=== PATIENT | female | born 1960 | race Caucasian/White ===

== ENCOUNTER 2023-07-02 13:37 | Inpatient (IN) | payer BC, MEDICAID ==
[~2023-07-02] VITALS: Ht 172.7 cm; Wt 55.0 kg
[2023-07-02 13:37] VITALS: BP_SYST 136; PULSE 78; RESP 15; TEMP 98.7; O2SAT 100
[2023-07-02] MEDS ORDERED: NACL 0.9% 1,000 ML IV ONE ×2 (14:00→18:00)
[2023-07-02] MEDS ORDERED: cefTRIAXone 1 GM IVPB PREMIX 50 ML IV ONE (14:00)
[2023-07-02] MEDS ORDERED: PROPOFOL DRIP 100 ML IV ONE ×2 (14:15→16:15)
[2023-07-02 14:32] LABS: ABG O2 SAT% ESTIMATE 99.9 % (94.0-100.0); BLOOD GAS BASE EXCESS -0.7 mmol/L (-3.0-3.0); BLOOD GAS HCO3 23.5 mmol/L (21.0-27.0); BLOOD GAS PCO2 37.5 mmHg (35.0-45.0); BLOOD GAS PH 7.415 (7.350-7.450); BLOOD GAS PO2 551.5 mmHg (75.0-100.0)
[2023-07-02 14:33] LABS: BASOPHILS # (AUTO) 0.1 K/uL (0.0-0.2); BASOPHILS % (AUTO) 0.5 % (0.0-2.0); EOSINOPHILS # (AUTO) 0.3 K/uL (0.0-0.4); EOSINOPHILS % (AUTO) 2.5 % (0.0-4.0); HEMATOCRIT 29.1 % (36-48); HEMOGLOBIN 9.3 g/dL (12.0-16.0); LYMPHOCYTES # (AUTO) 2.2 K/uL (1.0-5.5); LYMPHOCYTES % (AUTO) 21.4 % (20.5-51.5); MEAN CORPUSCULAR HEMOGLOBIN 28 pg (27-31); MEAN CORPUSCULAR HGB CONC 32 % (32-36); MEAN CORPUSCULAR VOLUME 88 fL (79.0-98.0); MONOCYTES # (AUTO) 0.5 K/uL (0.0-1.0); MONOCYTES % (AUTO) 5.1 % (1.7-9.3); NEUTROPHILS # (AUTO) 7.3 K/uL (1.8-7.7); NEUTROPHILS % (AUTO) 70.5 % (40.0-70.0); PLATELET COUNT (AUTO) 213 K/uL (130-430); RED CELL DISTRIBUTION WIDTH 16.3 % (9.0-15.0); WHITE BLOOD COUNT (AUTO) 10.3 K/uL (4.8-10.8)
[2023-07-02 14:35] LABS: ALLEN'S TEST POSITIVE (P)
[2023-07-02 14:46] LABS: ALANINE AMINOTRANSFERASE 11 U/L (12-78); ALBUMIN 1.7 g/dL (3.4-4.8); ANION GAP 13 (5-15); ASPARTATE AMINOTRANSFERASE 36 U/L (10-37); CARBON DIOXIDE 25 mmol/L (23-29); CREATININE 1.29 mg/dL (0.55-1.30); GFR AFRICAN AMERICAN 54 mL/min (>90); GLUCOSE 205 mg/dL (74-106); POTASSIUM 3.2 mmol/L (3.5-5.1); SALICYLATE 1 mg/dL (3-30); TOTAL BILIRUBIN 0.1 mg/dL (0.0-1.0); TOTAL PROTEIN, SERUM 6.6 g/dL (6.4-8.3); UREA NITROGEN, BLOOD 28 mg/dL (8-21)
[2023-07-02 14:47] LABS: ACETAMINOPHEN < 1 ug/mL (1-30); GFR NON AFRICAN-AMERICAN 45 mL/min (>90)
[2023-07-02 14:48] LABS: CHLORIDE 122 mmol/L (98-107); SODIUM SERUM 160 mmol/L (136-145)
[2023-07-02 15:03] LABS: CLARITY/URINE CLOUDY (CLEAR); COLOR,URINE YELLOW (YELLOW)
[2023-07-02 15:04] LABS: BILIRUBIN,URINE NEGATIVE (NEGATIVE); BLOOD, URINE 1+ (NEGATIVE); GLUCOSE,URINE NEGATIVE (NEGATIVE); KETONES,URINE NEGATIVE (NEGATIVE); LEUKOCYTE ESTERASE ,URINE 3+ (NEGATIVE); NITRITE, URINE NEGATIVE (NEGATIVE); PROTEIN URINE 3+ (NEGATIVE); UROBILINOGEN,URINE 0.2 (0.2-1.0)
[2023-07-02 15:05] LABS: BACTERIA,URINE MODERATE /HPF (None Seen); MUCUS,URINE None Seen /LPF (None Seen); RBC,URINE 0-3 /HPF (0-3); WBC,URINE >100 /HPF (0-3); YEAST,URINE Many /HPF (None Seen)
[2023-07-02 15:14] LABS: BARBITURATE, URINE POSITIVE (NEG <=200); BENZODIAZEPINE, URINE NEGATIVE (NEG <=150); CANNABINOID, URINE NEGATIVE (NEG <=50); COCAINE, URINE NEGATIVE (NEG <=150); METHAMPHETAMINES SCREEN,URINE NEGATIVE (NEG <=500); OPIATE, URINE NEGATIVE (NEG <=100); PHENCYCLIDINE SCREEN,URINE NEGATIVE (NEG <=25); URINE AMPHETAMINE NEGATIVE (NEG <=500); URINE METHADONE NEGATIVE (NEG <=200); URINE OXYCODONE SCREEN NEGATIVE (NEG <=100); URINE PROPOXYPHENE SCREEN NEGATIVE (NEG <=300)
[2023-07-02 15:15] LABS: UR TRICYCLIC ANTIDEPRESSANTS NEGATIVE (NEG <=300)
[2023-07-02 16:36] LABS: COVID19 ANTIGEN SOFIA FIA NEGATIVE (NEGATIVE)
[2023-07-02 16:38] LABS: INFLUENZA TYPE A negative (NEGATIVE); INFLUENZA TYPE B NEGATIVE (NEGATIVE)
[2023-07-02 17:41] LABS: CALCIUM 7.6 mg/dL (8.4-11.0); CREATININE 1.21 mg/dL (0.55-1.30); POTASSIUM 3.4 mmol/L (3.5-5.1)
[2023-07-02] MEDS ORDERED: ASA81 PO (19:17)
[2023-07-02] MEDS ORDERED: LEVE1000 PO (19:17)
[2023-07-02] MEDS ORDERED: MODA200T48 PO (19:17)
[2023-07-02] MEDS ORDERED: CLOP75TA32 PO (19:17)
[2023-07-02] MEDS ORDERED: HYDR-4037 PO (19:17)
[2023-07-02] MEDS ORDERED: LACO200T2 GT (19:17)
[2023-07-02] MEDS ORDERED: VALP500S4 PO (19:17)
[2023-07-02] MEDS ORDERED: LIP40 PO (19:17)
[2023-07-02] MEDS ORDERED: INSU200I SQ (19:17)
[2023-07-02] MEDS ORDERED: INSU100V53 SQ (19:17)
[2023-07-02] MEDS ORDERED: METO-442 PO (19:17)
[2023-07-02] MEDS ORDERED: PHEN100O4 PO (19:17)
[2023-07-02] MEDS ORDERED: NOR10 PO (19:17)
[2023-07-03] VITALS (15 sets, daily range): BP systolic 115–168; PULSE 81–101; RESP 16–25; TEMP 98.1–99.3; O2SAT 97–100
[2023-07-03] MEDS ORDERED: NACL 0.9% 1,000 ML IV ONE (07:30)
[2023-07-03] MEDS ORDERED: cefTRIAXone 1 GM IVPB PREMIX 50 ML IV ONE (07:30)
[2023-07-03 08:01] LABS: CALCIUM 7.6 mg/dL (8.4-11.0); CREATININE 1.27 mg/dL (0.55-1.30)
[2023-07-03 08:03] LABS: BASOPHILS # (AUTO) 0.1 K/uL (0.0-0.2); BASOPHILS % (AUTO) 0.4 % (0.0-2.0); EOSINOPHILS # (AUTO) 0.1 K/uL (0.0-0.4); EOSINOPHILS % (AUTO) 0.8 % (0.0-4.0); HEMATOCRIT 26.6 % (36-48); HEMOGLOBIN 8.4 g/dL (12.0-16.0); LYMPHOCYTES # (AUTO) 1.6 K/uL (1.0-5.5); LYMPHOCYTES % (AUTO) 8.2 % (20.5-51.5); MEAN CORPUSCULAR HEMOGLOBIN 28 pg (27-31); MEAN CORPUSCULAR HGB CONC 32 % (32-36); MEAN CORPUSCULAR VOLUME 89 fL (79.0-98.0); MONOCYTES # (AUTO) 1.2 K/uL (0.0-1.0); MONOCYTES % (AUTO) 6.4 % (1.7-9.3); NEUTROPHILS # (AUTO) 16.1 K/uL (1.8-7.7); NEUTROPHILS % (AUTO) 84.2 % (40.0-70.0); PLATELET COUNT (AUTO) 188 K/uL (130-430); RED BLOOD CELL COUNT(AUTO) 2.98 MIL/uL (4.2-6.2); RED CELL DISTRIBUTION WIDTH 15.9 % (9.0-15.0); WHITE BLOOD COUNT (AUTO) 19.1 K/uL (4.8-10.8)
[2023-07-03 08:06] LABS: ALBUMIN 1.5 g/dL (3.4-4.8); TOTAL BILIRUBIN 0.3 mg/dL (0.0-1.0); TOTAL PROTEIN, SERUM 6.4 g/dL (6.4-8.3)
[2023-07-03] MEDS ORDERED: KCL 40 mEq in 100 mL (PREMIX) 100 ML IV ONE (09:00)
[2023-07-03] MEDS ORDERED: PROPOFOL DRIP 100 ML IV ONE ×2 (10:30→15:00)
[2023-07-03] MEDS ORDERED: PANTOPRAZOLE SODIUM 40 MG/VIAL (PROTONIX) IVP ONE (10:30)
[2023-07-03] MEDS ORDERED: ACETAMINOPHEN 325 MG SUPP.RECT RC ONE (11:15)
[2023-07-03] MEDS ORDERED: D5NS 500 ML IV SCH (15:00)
[2023-07-03] MEDS ORDERED: ACETAMINOPHEN 650 MG SUPP.RECT RC PRN ×2 (15:00→15:15)
[2023-07-03] MEDS ORDERED: PROPOFOL DRIP 100 ML IV PRN ×2 (15:05→22:45)
[2023-07-03] MEDS ORDERED: D5NS 1,000 ML IV SCH (15:15)
[2023-07-03] MEDS ORDERED: DEXTROSE 50% JECT 50 ML DISP.SYRIN IVP PRN (22:45)
[2023-07-03] MEDS ORDERED: D5W 1,000 ML IV PRN (22:45)
[2023-07-03] MEDS ORDERED: GLUCOSE (DEXTROSE) ORAL GEL -Adults PO PRN (22:45)
[2023-07-03] MEDS: INSULIN LISPRO SLIDING SCALE 100 UNITS/ML, 3 ML VIAL (humaLOG) SUBCUT PRN (23:50)
[2023-07-04] VITALS (37 sets, daily range): BP systolic 119–193; PULSE 71–98; RESP 14–29; TEMP 98.4–99.6; O2SAT 97–100
[2023-07-04] MEDS: D5/0.45 NS 1,000 ML IV SCH ×3 (01:49→22:46)
[2023-07-04 04:10] LABS: BASOPHILS % (AUTO) 0.3 % (0.0-2.0); EOSINOPHILS # (AUTO) 0.1 K/uL (0.0-0.4); EOSINOPHILS % (AUTO) 0.6 % (0.0-4.0); LYMPHOCYTES # (AUTO) 1.2 K/uL (1.0-5.5); LYMPHOCYTES % (AUTO) 8.9 % (20.5-51.5); MEAN CORPUSCULAR HEMOGLOBIN 28 pg (27-31); MEAN CORPUSCULAR HGB CONC 31 % (32-36); MEAN CORPUSCULAR VOLUME 89 fL (79.0-98.0); MONOCYTES # (AUTO) 0.9 K/uL (0.0-1.0); MONOCYTES % (AUTO) 6.6 % (1.7-9.3); NEUTROPHILS # (AUTO) 11.7 K/uL (1.8-7.7); NEUTROPHILS % (AUTO) 83.6 % (40.0-70.0); PLATELET COUNT (AUTO) 175 K/uL (130-430); RED BLOOD CELL COUNT(AUTO) 2.43 MIL/uL (4.2-6.2); RED CELL DISTRIBUTION WIDTH 16.2 % (9.0-15.0); WHITE BLOOD COUNT (AUTO) 13.9 K/uL (4.8-10.8)
[2023-07-04 04:39] LABS: CALCIUM 7.9 mg/dL (8.4-11.0); CREATININE 1.3 mg/dL (0.55-1.30)
[2023-07-04 05:25] LABS: HEMATOCRIT 21.7 % (36-48); HEMOGLOBIN 6.8 g/dL (12.0-16.0)
[2023-07-04] MEDS: INSULIN LISPRO SLIDING SCALE 100 UNITS/ML, 3 ML VIAL (humaLOG) SUBCUT PRN ×3 (06:07→17:47)
[2023-07-04] MEDS ORDERED: hydrALAZINE HCL 10 MG TABLET ONE (06:18)
[2023-07-04] MEDS: hydrALAZINE HCL 10 MG TABLET PO SCH ×3 (06:20→22:00)
[2023-07-04] MEDS ORDERED: METOPROLOL TARTRATE 50 MG TABLET PO SCH (09:00)
[2023-07-04] MEDS ORDERED: INSULIN GLARGINE 100 UNITS/ML, 10 ML VIAL SUBCUT SCH (09:00)
[2023-07-04 10:07] LABS: ABG O2 SAT% ESTIMATE 97.5 % (94.0-100.0); BLOOD GAS BASE EXCESS -4.2 mmol/L (-3.0-3.0); BLOOD GAS HCO3 19.3 mmol/L (21.0-27.0); BLOOD GAS PCO2 31.3 mmHg (35.0-45.0); BLOOD GAS PH 7.407 (7.350-7.450); BLOOD GAS PO2 97.6 mmHg (75.0-100.0)
[2023-07-04 10:13] LABS: ALLEN'S TEST POSITIVE (P)
[2023-07-04] MEDS ORDERED: COMMUNICATION ORDER XX ONE (10:30)
[2023-07-04] MEDS ORDERED: amLODIPine BESYLATE 10 MG TABLET NG ONE (11:00)
[2023-07-04] MEDS ORDERED: ASPIRIN 81 MG TAB.CHEW NG ONE (11:15)
[2023-07-04] MEDS ORDERED: INSULIN GLARGINE 100 UNITS/ML, 10 ML VIAL SQ ONE (11:30)
[2023-07-04] MEDS ORDERED: CLOPIDOGREL BISULFATE 75 MG TABLET NG ONE (11:30)
[2023-07-04] MEDS: POTASSIUM CHLORIDE 20 mEq in 100 mL (PREMIX) 100 ML x 2 doses IV SCH ×3 (12:03→14:18)
[2023-07-04] MEDS: VALPROIC ACID ORAL SYRUP 250 MG/5 ML UDC NG SCH ×2 (14:20→20:08)
[2023-07-04] MEDS ORDERED: hydrALAZINE HCL 10 MG TABLET NG SCH (15:00)
[2023-07-04] MEDS: FLUCONAZOLE 200 mg/ NS 100 ML IV SCH (15:52)
[2023-07-04] MEDS: PIPERACILLIN/TAZO 3.375/DEX-IS 50 ML IV SCH (17:36)
[2023-07-04] MEDS: LevETIRAcetam 500 MG/5 ML UDC ORAL LIQUID NG SCH (20:08)
[2023-07-04] MEDS: ATORVASTATIN 20 MG TABLET NG SCH (20:08)
[2023-07-04] MEDS: PHENYTOIN 100 MG/4 ML UDC (DILANTIN) NG SCH (20:08)
[2023-07-04] MEDS: METOPROLOL TARTRATE 50 MG TABLET NG SCH (20:09)
[2023-07-04] MEDS: LACOSAMIDE 100 MG TABLET NG SCH (21:00)
[2023-07-05] VITALS (34 sets, daily range): BP systolic 114–179; PULSE 63–80; RESP 12–26; TEMP 98.3–99; O2SAT 95–100
[2023-07-05] MEDS: PIPERACILLIN/TAZO 3.375/DEX-IS 50 ML IV SCH ×4 (00:42→18:24)
[2023-07-05 04:56] LABS: ERYTHROCYTE SEDIMENTATION RATE 87 MM/HR (0-20)
[2023-07-05 05:00] LABS: BASOPHILS # (AUTO) 0.1 K/uL (0.0-0.2); BASOPHILS % (AUTO) 0.4 % (0.0-2.0); EOSINOPHILS # (AUTO) 0.3 K/uL (0.0-0.4); EOSINOPHILS % (AUTO) 2.8 % (0.0-4.0); HEMATOCRIT 27.1 % (36-48); HEMOGLOBIN 8.7 g/dL (12.0-16.0); LYMPHOCYTES # (AUTO) 1.8 K/uL (1.0-5.5); MEAN CORPUSCULAR HEMOGLOBIN 28 pg (27-31); MEAN CORPUSCULAR HGB CONC 32 % (32-36); MEAN CORPUSCULAR VOLUME 87 fL (79.0-98.0); MONOCYTES # (AUTO) 0.9 K/uL (0.0-1.0); MONOCYTES % (AUTO) 7.5 % (1.7-9.3); NEUTROPHILS # (AUTO) 9.1 K/uL (1.8-7.7); NEUTROPHILS % (AUTO) 74.3 % (40.0-70.0); PLATELET COUNT (AUTO) 195 K/uL (130-430); RED BLOOD CELL COUNT(AUTO) 3.12 MIL/uL (4.2-6.2); RED CELL DISTRIBUTION WIDTH 16.4 % (9.0-15.0); WHITE BLOOD COUNT (AUTO) 12.3 K/uL (4.8-10.8)
[2023-07-05 05:15] LABS: CALCIUM 7.5 mg/dL (8.4-11.0); CREATININE 0.95 mg/dL (0.55-1.30); PHOSPHORUS 1.9 mg/dL (2.7-4.5); POTASSIUM 3.6 mmol/L (3.5-5.1)
[2023-07-05] MEDS: INSULIN LISPRO SLIDING SCALE 100 UNITS/ML, 3 ML VIAL (humaLOG) SUBCUT PRN ×4 (06:15→18:33)
[2023-07-05] MEDS: hydrALAZINE HCL 10 MG TABLET PO SCH ×3 (06:57→21:58)
[2023-07-05] MEDS: PANTOPRAZOLE SODIUM 40 MG/VIAL (PROTONIX) IVP SCH (08:07)
[2023-07-05] MEDS: PHENYTOIN 100 MG/4 ML UDC (DILANTIN) NG SCH ×2 (08:08→21:56)
[2023-07-05] MEDS: CLOPIDOGREL BISULFATE 75 MG TABLET NG SCH (08:08)
[2023-07-05] MEDS: amLODIPine BESYLATE 10 MG TABLET NG SCH (08:08)
[2023-07-05] MEDS: ASPIRIN 81 MG TAB.CHEW NG SCH (08:09)
[2023-07-05] MEDS: METOPROLOL TARTRATE 50 MG TABLET NG SCH ×2 (08:09→21:58)
[2023-07-05] MEDS: MODAFINIL 100 MG TABLET (PROVIGIL) NG SCH (08:09)
[2023-07-05] MEDS: LACOSAMIDE 100 MG TABLET NG SCH ×2 (08:09→21:57)
[2023-07-05] MEDS: VALPROIC ACID ORAL SYRUP 250 MG/5 ML UDC NG SCH ×3 (08:12→21:55)
[2023-07-05] MEDS: LevETIRAcetam 500 MG/5 ML UDC ORAL LIQUID NG SCH ×2 (08:12→21:57)
[2023-07-05] MEDS ORDERED: INSULIN GLARGINE 100 UNITS/ML, 10 ML VIAL SQ SCH (09:00)
[2023-07-05] MEDS: D5/0.45 NS 1,000 ML IV SCH ×2 (09:36→22:12)
[2023-07-05] MEDS ORDERED: CALCIUM GLUCONATE 2 GM in NS 80 ML IV ONE (10:15)
[2023-07-05] MEDS ORDERED: K PHOS 15 MM in NS 250 ML IV ONE (10:15)
[2023-07-05] MEDS: FLUCONAZOLE 200 mg/ NS 100 ML IV SCH (14:38)
[2023-07-05] MEDS ORDERED: INSULIN NPH 100 UNITS/ML 10 ML VIAL SUBCUT ONE (15:15)
[2023-07-05] MEDS ORDERED: COMMUNICATION ORDER XX ONE (15:30)
[2023-07-05] MEDS: ATORVASTATIN 20 MG TABLET NG SCH (21:59)
[2023-07-05] MEDS: INSULIN GLARGINE 100 UNITS/ML, 10 ML VIAL SQ SCH (22:34)
[2023-07-06] VITALS (35 sets, daily range): BP systolic 126–192; PULSE 62–79; RESP 15–33; TEMP 97.7–99.6; O2SAT 97–100
[2023-07-06] MEDS: INSULIN LISPRO SLIDING SCALE 100 UNITS/ML, 3 ML VIAL (humaLOG) SUBCUT PRN ×4 (01:50→17:37)
[2023-07-06] MEDS: PIPERACILLIN/TAZO 3.375/DEX-IS 50 ML IV SCH ×2 (01:56→05:58)
[2023-07-06] MEDS: D5/0.45 NS 1,000 ML IV SCH ×2 (03:00→13:21)
[2023-07-06 05:07] LABS: BASOPHILS % (AUTO) 0.3 % (0.0-2.0); EOSINOPHILS # (AUTO) 0.4 K/uL (0.0-0.4); EOSINOPHILS % (AUTO) 5.1 % (0.0-4.0); HEMATOCRIT 24.4 % (36-48); HEMOGLOBIN 7.8 g/dL (12.0-16.0); LYMPHOCYTES # (AUTO) 1.4 K/uL (1.0-5.5); LYMPHOCYTES % (AUTO) 17.9 % (20.5-51.5); MEAN CORPUSCULAR HEMOGLOBIN 28 pg (27-31); MEAN CORPUSCULAR HGB CONC 32 % (32-36); MEAN CORPUSCULAR VOLUME 87 fL (79.0-98.0); MONOCYTES # (AUTO) 0.6 K/uL (0.0-1.0); MONOCYTES % (AUTO) 7.8 % (1.7-9.3); NEUTROPHILS # (AUTO) 5.2 K/uL (1.8-7.7); NEUTROPHILS % (AUTO) 68.9 % (40.0-70.0); PLATELET COUNT (AUTO) 224 K/uL (130-430); RED BLOOD CELL COUNT(AUTO) 2.79 MIL/uL (4.2-6.2); RED CELL DISTRIBUTION WIDTH 15.9 % (9.0-15.0); WHITE BLOOD COUNT (AUTO) 7.6 K/uL (4.8-10.8)
[2023-07-06 05:26] LABS: TOTAL IRON BIND. CAPACITY 132 ug/dL (250-450)
[2023-07-06 05:30] LABS: CALCIUM 7.5 mg/dL (8.4-11.0); CREATININE 1.02 mg/dL (0.55-1.30); PHOSPHORUS 2.4 mg/dL (2.7-4.5); POTASSIUM 3.6 mmol/L (3.5-5.1); THYROID STIMULATING HORMONE 2.59 uIu/mL (0.34-4.82); TOTAL BILIRUBIN 0.1 mg/dL (0.0-1.0); TOTAL PROTEIN, SERUM 5.2 g/dL (6.4-8.3)
[2023-07-06] MEDS: hydrALAZINE HCL 10 MG TABLET PO SCH ×3 (05:58→23:15)
[2023-07-06 06:22] LABS: ERYTHROCYTE SEDIMENTATION RATE 71 MM/HR (0-20)
[2023-07-06] MEDS: PANTOPRAZOLE SODIUM 40 MG/VIAL (PROTONIX) IVP SCH (09:53)
[2023-07-06] MEDS: VALPROIC ACID ORAL SYRUP 250 MG/5 ML UDC NG SCH ×3 (09:53→23:16)
[2023-07-06] MEDS: ASPIRIN 81 MG TAB.CHEW NG SCH (09:53)
[2023-07-06] MEDS: PHENYTOIN 100 MG/4 ML UDC (DILANTIN) NG SCH ×2 (09:54→23:16)
[2023-07-06] MEDS: LevETIRAcetam 500 MG/5 ML UDC ORAL LIQUID NG SCH ×2 (09:54→23:16)
[2023-07-06] MEDS: METOPROLOL TARTRATE 50 MG TABLET NG SCH ×2 (09:55→23:15)
[2023-07-06] MEDS: MODAFINIL 100 MG TABLET (PROVIGIL) NG SCH (09:56)
[2023-07-06] MEDS: LACOSAMIDE 100 MG TABLET NG SCH ×2 (09:56→23:13)
[2023-07-06] MEDS: CLOPIDOGREL BISULFATE 75 MG TABLET NG SCH (09:56)
[2023-07-06] MEDS: amLODIPine BESYLATE 10 MG TABLET NG SCH (09:56)
[2023-07-06] MEDS: INSULIN GLARGINE 100 UNITS/ML, 10 ML VIAL SQ SCH ×2 (09:59→23:43)
[2023-07-06 10:39] LABS: ABG O2 SAT% ESTIMATE 97.5 % (94.0-100.0); BLOOD GAS PH 7.474 (7.350-7.450); BLOOD GAS PO2 89.7 mmHg (75.0-100.0)
[2023-07-06 10:45] LABS: BLOOD GAS BASE EXCESS -3.9 mmol/L (-3.0-3.0); BLOOD GAS HCO3 17.7 mmol/L (21.0-27.0); BLOOD GAS PCO2 24.6 mmHg (35.0-45.0)
[2023-07-06] MEDS ORDERED: CALCIUM GLUCONATE 2 GM in NS 100 ML IV ONE (11:00)
[2023-07-06] MEDS ORDERED: K PHOS 30 MM in NS 250 ML IV ONE (12:00)
[2023-07-06] MEDS ORDERED: VANCOMYCIN HCL 1,000 MG in NS 250 ML IV SCH (12:00)
[2023-07-06] MEDS: FLUCONAZOLE 200 mg/ NS 100 ML IV SCH (15:28)
[2023-07-06] MEDS: CEFEPIME 2 GM in D5W 100 ML IV SCH (23:13)
[2023-07-06] MEDS: ATORVASTATIN 20 MG TABLET NG SCH (23:13)
[2023-07-07] VITALS (38 sets, daily range): BP systolic 82–192; PULSE 60–183; RESP 14–36; TEMP 97.5–98; O2SAT 95–100
[2023-07-07] MEDS: INSULIN LISPRO SLIDING SCALE 100 UNITS/ML, 3 ML VIAL (humaLOG) SUBCUT PRN ×3 (00:11→12:36)
[2023-07-07] MEDS: D5/0.45 NS 1,000 ML IV SCH ×2 (01:10→08:47)
[2023-07-07 05:09] LABS: BASOPHILS % (AUTO) 0.6 % (0.0-2.0); EOSINOPHILS # (AUTO) 0.3 K/uL (0.0-0.4); EOSINOPHILS % (AUTO) 3.9 % (0.0-4.0); HEMATOCRIT 25.9 % (36-48); HEMOGLOBIN 8.6 g/dL (12.0-16.0); LYMPHOCYTES # (AUTO) 1.2 K/uL (1.0-5.5); LYMPHOCYTES % (AUTO) 16.3 % (20.5-51.5); MEAN CORPUSCULAR HEMOGLOBIN 28 pg (27-31); MEAN CORPUSCULAR HGB CONC 33 % (32-36); MEAN CORPUSCULAR VOLUME 86 fL (79.0-98.0); MONOCYTES # (AUTO) 0.7 K/uL (0.0-1.0); MONOCYTES % (AUTO) 9.5 % (1.7-9.3); NEUTROPHILS # (AUTO) 5.3 K/uL (1.8-7.7); NEUTROPHILS % (AUTO) 69.7 % (40.0-70.0); PLATELET COUNT (AUTO) 305 K/uL (130-430); RED BLOOD CELL COUNT(AUTO) 3.03 MIL/uL (4.2-6.2); RED CELL DISTRIBUTION WIDTH 15.7 % (9.0-15.0); WHITE BLOOD COUNT (AUTO) 7.7 K/uL (4.8-10.8)
[2023-07-07 05:37] LABS: ERYTHROCYTE SEDIMENTATION RATE 90 MM/HR (0-20)
[2023-07-07 05:39] LABS: CALCIUM 7.6 mg/dL (8.4-11.0); CREATININE 0.96 mg/dL (0.55-1.30); PHOSPHORUS 3.4 mg/dL (2.7-4.5); POTASSIUM 3.4 mmol/L (3.5-5.1)
[2023-07-07] MEDS: hydrALAZINE HCL 10 MG TABLET PO SCH ×3 (06:18→22:28)
[2023-07-07 08:06] LABS: FOLATE (FOLIC ACID) 3.6 ng/mL (>3.0)
[2023-07-07] MEDS: PANTOPRAZOLE SODIUM 40 MG/VIAL (PROTONIX) IVP SCH (08:47)
[2023-07-07] MEDS: CEFEPIME 2 GM in D5W 100 ML IV SCH ×2 (08:50→20:29)
[2023-07-07] MEDS: ASPIRIN 81 MG TAB.CHEW NG SCH (08:51)
[2023-07-07] MEDS: amLODIPine BESYLATE 10 MG TABLET NG SCH (08:52)
[2023-07-07] MEDS: PHENYTOIN 100 MG/4 ML UDC (DILANTIN) NG SCH ×2 (08:52→20:24)
[2023-07-07] MEDS: CLOPIDOGREL BISULFATE 75 MG TABLET NG SCH (08:52)
[2023-07-07] MEDS: LACOSAMIDE 100 MG TABLET NG SCH ×2 (08:53→20:27)
[2023-07-07] MEDS: METOPROLOL TARTRATE 50 MG TABLET NG SCH ×2 (08:53→20:28)
[2023-07-07] MEDS: VALPROIC ACID ORAL SYRUP 250 MG/5 ML UDC NG SCH ×3 (08:54→20:25)
[2023-07-07] MEDS: MODAFINIL 100 MG TABLET (PROVIGIL) NG SCH (08:54)
[2023-07-07] MEDS: LevETIRAcetam 500 MG/5 ML UDC ORAL LIQUID NG SCH ×2 (08:56→20:26)
[2023-07-07] MEDS: INSULIN GLARGINE 100 UNITS/ML, 10 ML VIAL SQ SCH (08:58)
[2023-07-07] MEDS ORDERED: KCL 40 mEq in 100 mL (PREMIX) 100 ML IV ONE (09:00)
[2023-07-07] MEDS ORDERED: POTASSIUM CHLORIDE 20 MEQ/PKT PACKET GT ONE (10:15)
[2023-07-07] MEDS ORDERED: CALCIUM GLUCONATE 2 GM in NS 100 ML IV ONE (11:00)
[2023-07-07] MEDS: FLUCONAZOLE 200 mg/ NS 100 ML IV SCH (15:52)
[2023-07-07] MEDS ORDERED: GOLYTELY / COLYTE SOLUTION 4 LITERS PO ONE (18:00)
[2023-07-07] MEDS: ATORVASTATIN 20 MG TABLET NG SCH (20:26)
[2023-07-07] MEDS: LINEZOLID 300 ML IV SCH (22:27)
[2023-07-08] VITALS (38 sets, daily range): BP systolic 13–186; PULSE 55–100; RESP 17–31; TEMP 97.9–98.9; O2SAT 96–100
[2023-07-08] MEDS: hydrALAZINE HCL 10 MG TABLET PO SCH ×3 (05:36→21:59)
[2023-07-08 05:44] LABS: BASOPHILS % (AUTO) 0.5 % (0.0-2.0); EOSINOPHILS # (AUTO) 0.3 K/uL (0.0-0.4); EOSINOPHILS % (AUTO) 3.9 % (0.0-4.0); HEMATOCRIT 27.4 % (36-48); LYMPHOCYTES # (AUTO) 1.6 K/uL (1.0-5.5); LYMPHOCYTES % (AUTO) 21.9 % (20.5-51.5); MEAN CORPUSCULAR HEMOGLOBIN 28 pg (27-31); MEAN CORPUSCULAR HGB CONC 33 % (32-36); MEAN CORPUSCULAR VOLUME 86 fL (79.0-98.0); MONOCYTES # (AUTO) 0.7 K/uL (0.0-1.0); NEUTROPHILS # (AUTO) 4.7 K/uL (1.8-7.7); NEUTROPHILS % (AUTO) 64.7 % (40.0-70.0); PLATELET COUNT (AUTO) 330 K/uL (130-430); RED BLOOD CELL COUNT(AUTO) 3.18 MIL/uL (4.2-6.2); WHITE BLOOD COUNT (AUTO) 7.3 K/uL (4.8-10.8)
[2023-07-08 06:04] LABS: ALBUMIN 1.2 g/dL (3.4-4.8); CALCIUM 7.9 mg/dL (8.4-11.0); CREATININE 0.93 mg/dL (0.55-1.30); TOTAL BILIRUBIN 0.2 mg/dL (0.0-1.0); TOTAL PROTEIN, SERUM 5.1 g/dL (6.4-8.3)
[2023-07-08 06:30] LABS: ERYTHROCYTE SEDIMENTATION RATE 97 MM/HR (0-20)
[2023-07-08] MEDS ORDERED: MEPERIDINE 100 MG INJ. 100 MG/ML VIAL ONE (08:12)
[2023-07-08] MEDS ORDERED: MIDAZOLAM HCL 5 MG/5 ML VIAL ONE (08:12)
[2023-07-08 08:35] LABS: ABG O2 SAT% ESTIMATE 98.5 % (94.0-100.0); BLOOD GAS BASE EXCESS -0.6 mmol/L (-3.0-3.0); BLOOD GAS HCO3 21.4 mmol/L (21.0-27.0); BLOOD GAS PCO2 28.5 mmHg (35.0-45.0); BLOOD GAS PH 7.493 (7.350-7.450); BLOOD GAS PO2 112.7 mmHg (75.0-100.0)
[2023-07-08 08:50] LABS: ALLEN'S TEST POSITIVE (P)
[2023-07-08] MEDS: CEFEPIME 2 GM in D5W 100 ML IV SCH ×2 (09:38→20:07)
[2023-07-08] MEDS: MODAFINIL 100 MG TABLET (PROVIGIL) NG SCH (09:39)
[2023-07-08] MEDS: PANTOPRAZOLE SODIUM 40 MG/VIAL (PROTONIX) IVP SCH (09:39)
[2023-07-08] MEDS: LINEZOLID 300 ML IV SCH ×2 (09:39→21:23)
[2023-07-08] MEDS: ASPIRIN 81 MG TAB.CHEW NG SCH (09:40)
[2023-07-08] MEDS: METOPROLOL TARTRATE 50 MG TABLET NG SCH ×2 (09:40→21:22)
[2023-07-08] MEDS: LACOSAMIDE 100 MG TABLET NG SCH ×2 (09:40→21:21)
[2023-07-08] MEDS: CLOPIDOGREL BISULFATE 75 MG TABLET NG SCH (09:40)
[2023-07-08] MEDS: amLODIPine BESYLATE 10 MG TABLET NG SCH (09:41)
[2023-07-08] MEDS: LevETIRAcetam 500 MG/5 ML UDC ORAL LIQUID NG SCH ×2 (09:41→21:20)
[2023-07-08] MEDS: PHENYTOIN 100 MG/4 ML UDC (DILANTIN) NG SCH ×2 (09:41→21:21)
[2023-07-08] MEDS: VALPROIC ACID ORAL SYRUP 250 MG/5 ML UDC NG SCH ×3 (09:42→21:20)
[2023-07-08] MEDS ORDERED: ALBUMIN HUMAN 25% 100 ML IV ONE (12:15)
[2023-07-08] MEDS: INSULIN LISPRO SLIDING SCALE 100 UNITS/ML, 3 ML VIAL (humaLOG) SUBCUT PRN (12:43)
[2023-07-08] MEDS: FLUCONAZOLE 200 mg/ NS 100 ML IV SCH (14:52)
[2023-07-08] MEDS ORDERED: CHOLECALCIFEROL (VITAMIN D3) 5,000 UNIT TABLET PO SCH (15:45)
[2023-07-08] MEDS ORDERED: CHOLECALCIFEROL (VITAMIN D3) 5,000 UNIT TABLET NG ONE (16:00)
[2023-07-08] MEDS: ATORVASTATIN 20 MG TABLET NG SCH (21:21)
[2023-07-08] MEDS: INSULIN GLARGINE 100 UNITS/ML, 10 ML VIAL SUBCUT SCH (21:57)
[2023-07-09] VITALS (34 sets, daily range): BP systolic 119–184; PULSE 58–98; RESP 14–28; TEMP 97–98.3; O2SAT 94–100
[2023-07-09 05:09] LABS: BASOPHILS % (AUTO) 0.6 % (0.0-2.0); EOSINOPHILS # (AUTO) 0.3 K/uL (0.0-0.4); EOSINOPHILS % (AUTO) 3.7 % (0.0-4.0); HEMATOCRIT 26.3 % (36-48); HEMOGLOBIN 8.8 g/dL (12.0-16.0); LYMPHOCYTES # (AUTO) 1.2 K/uL (1.0-5.5); LYMPHOCYTES % (AUTO) 15.3 % (20.5-51.5); MEAN CORPUSCULAR HEMOGLOBIN 29 pg (27-31); MEAN CORPUSCULAR HGB CONC 34 % (32-36); MEAN CORPUSCULAR VOLUME 86 fL (79.0-98.0); MONOCYTES # (AUTO) 0.8 K/uL (0.0-1.0); MONOCYTES % (AUTO) 10.8 % (1.7-9.3); NEUTROPHILS # (AUTO) 5.5 K/uL (1.8-7.7); NEUTROPHILS % (AUTO) 69.6 % (40.0-70.0); PLATELET COUNT (AUTO) 351 K/uL (130-430); RED BLOOD CELL COUNT(AUTO) 3.06 MIL/uL (4.2-6.2); RED CELL DISTRIBUTION WIDTH 15.2 % (9.0-15.0); WHITE BLOOD COUNT (AUTO) 7.8 K/uL (4.8-10.8)
[2023-07-09 05:16] LABS: ERYTHROCYTE SEDIMENTATION RATE 85 MM/HR (0-20)
[2023-07-09 05:23] LABS: CALCIUM 8.1 mg/dL (8.4-11.0); CREATININE 0.95 mg/dL (0.55-1.30); POTASSIUM 3.2 mmol/L (3.5-5.1)
[2023-07-09] MEDS: hydrALAZINE HCL 10 MG TABLET PO SCH ×3 (05:54→21:50)
[2023-07-09] MEDS: INSULIN LISPRO SLIDING SCALE 100 UNITS/ML, 3 ML VIAL (humaLOG) SUBCUT PRN ×3 (05:56→18:50)
[2023-07-09] MEDS: LINEZOLID 300 ML IV SCH ×2 (08:47→21:31)
[2023-07-09] MEDS: PANTOPRAZOLE SODIUM 40 MG/VIAL (PROTONIX) IVP SCH (08:48)
[2023-07-09] MEDS: CEFEPIME 2 GM in D5W 100 ML IV SCH ×2 (08:48→21:30)
[2023-07-09] MEDS: ASPIRIN 81 MG TAB.CHEW NG SCH (08:49)
[2023-07-09] MEDS: PHENYTOIN 100 MG/4 ML UDC (DILANTIN) NG SCH ×2 (08:49→21:29)
[2023-07-09] MEDS: METOPROLOL TARTRATE 50 MG TABLET NG SCH ×2 (08:50→21:34)
[2023-07-09] MEDS: amLODIPine BESYLATE 10 MG TABLET NG SCH (08:51)
[2023-07-09] MEDS: CLOPIDOGREL BISULFATE 75 MG TABLET NG SCH (08:51)
[2023-07-09] MEDS: MODAFINIL 100 MG TABLET (PROVIGIL) NG SCH (08:51)
[2023-07-09] MEDS: LACOSAMIDE 100 MG TABLET NG SCH ×2 (08:53→21:35)
[2023-07-09] MEDS: CHOLECALCIFEROL (VITAMIN D3) 5,000 UNIT TABLET NG SCH (08:54)
[2023-07-09] MEDS: INSULIN GLARGINE 100 UNITS/ML, 10 ML VIAL SUBCUT SCH (09:05)
[2023-07-09] MEDS ORDERED: POTASSIUM CHLORIDE 20 MEQ/PKT PACKET GT ONE (11:00)
[2023-07-09] MEDS: VALPROIC ACID ORAL SYRUP 250 MG/5 ML UDC NG SCH ×3 (12:19→21:32)
[2023-07-09] MEDS: LevETIRAcetam 500 MG/5 ML UDC ORAL LIQUID NG SCH ×2 (12:20→21:33)
[2023-07-09] MEDS: SCOPOLAMINE HYDROBROMIDE 1 MG PATCH .72 H (TRANSDERM-SCOP) TD SCH (14:46)
[2023-07-09] MEDS: FLUCONAZOLE 200 mg/ NS 100 ML IV SCH (14:47)
[2023-07-09] MEDS: ATORVASTATIN 20 MG TABLET NG SCH (21:36)
[2023-07-10] VITALS (36 sets, daily range): BP systolic 97–183; PULSE 58–80; RESP 15–30; TEMP 97.3–99; O2SAT 98–100
[2023-07-10] MEDS: INSULIN LISPRO SLIDING SCALE 100 UNITS/ML, 3 ML VIAL (humaLOG) SUBCUT PRN ×4 (00:21→17:29)
[2023-07-10 05:19] LABS: BASOPHILS % (AUTO) 0.4 % (0.0-2.0); EOSINOPHILS # (AUTO) 0.2 K/uL (0.0-0.4); EOSINOPHILS % (AUTO) 2.8 % (0.0-4.0); HEMATOCRIT 27.5 % (36-48); HEMOGLOBIN 9.2 g/dL (12.0-16.0); LYMPHOCYTES # (AUTO) 1.5 K/uL (1.0-5.5); LYMPHOCYTES % (AUTO) 18.9 % (20.5-51.5); MEAN CORPUSCULAR HEMOGLOBIN 29 pg (27-31); MEAN CORPUSCULAR HGB CONC 33 % (32-36); MEAN CORPUSCULAR VOLUME 86 fL (79.0-98.0); MONOCYTES % (AUTO) 12.6 % (1.7-9.3); NEUTROPHILS # (AUTO) 5.3 K/uL (1.8-7.7); NEUTROPHILS % (AUTO) 65.3 % (40.0-70.0); PLATELET COUNT (AUTO) 361 K/uL (130-430); RED BLOOD CELL COUNT(AUTO) 3.22 MIL/uL (4.2-6.2); RED CELL DISTRIBUTION WIDTH 15.1 % (9.0-15.0); WHITE BLOOD COUNT (AUTO) 8.1 K/uL (4.8-10.8)
[2023-07-10 05:22] LABS: ERYTHROCYTE SEDIMENTATION RATE 100 MM/HR (0-20)
[2023-07-10 05:28] LABS: CALCIUM 8.1 mg/dL (8.4-11.0); CREATININE 1.08 mg/dL (0.55-1.30); POTASSIUM 3.2 mmol/L (3.5-5.1)
[2023-07-10] MEDS: hydrALAZINE HCL 10 MG TABLET PO SCH ×3 (05:58→21:18)
[2023-07-10] MEDS ORDERED: POTASSIUM CHLORIDE 20 MEQ/PKT PACKET PO ONE (08:30)
[2023-07-10] MEDS: LINEZOLID 300 ML IV SCH ×2 (08:38→21:14)
[2023-07-10] MEDS: CEFEPIME 2 GM in D5W 100 ML IV SCH ×2 (08:38→21:13)
[2023-07-10] MEDS: PANTOPRAZOLE SODIUM 40 MG/VIAL (PROTONIX) IVP SCH (08:39)
[2023-07-10] MEDS: PHENYTOIN 100 MG/4 ML UDC (DILANTIN) NG SCH ×2 (08:39→21:14)
[2023-07-10] MEDS: amLODIPine BESYLATE 10 MG TABLET NG SCH (08:39)
[2023-07-10] MEDS: ASPIRIN 81 MG TAB.CHEW NG SCH (08:39)
[2023-07-10] MEDS: VALPROIC ACID ORAL SYRUP 250 MG/5 ML UDC NG SCH ×3 (08:40→21:19)
[2023-07-10] MEDS: LevETIRAcetam 500 MG/5 ML UDC ORAL LIQUID NG SCH ×2 (08:40→21:16)
[2023-07-10] MEDS: METOPROLOL TARTRATE 50 MG TABLET NG SCH ×2 (08:40→21:17)
[2023-07-10] MEDS: CLOPIDOGREL BISULFATE 75 MG TABLET NG SCH (08:41)
[2023-07-10] MEDS: CHOLECALCIFEROL (VITAMIN D3) 5,000 UNIT TABLET NG SCH (08:41)
[2023-07-10] MEDS: MODAFINIL 100 MG TABLET (PROVIGIL) NG SCH (08:41)
[2023-07-10] MEDS: LACOSAMIDE 100 MG TABLET NG SCH ×2 (08:42→21:16)
[2023-07-10] MEDS: INSULIN GLARGINE 100 UNITS/ML, 10 ML VIAL SUBCUT SCH ×2 (08:57→21:22)
[2023-07-10] MEDS: FLUCONAZOLE 200 mg/ NS 100 ML IV SCH (14:49)
[2023-07-10] MEDS: ATORVASTATIN 20 MG TABLET NG SCH (21:15)
[2023-07-11] VITALS (31 sets, daily range): BP systolic 113–180; PULSE 64–81; RESP 14–27; TEMP 97.2–99.1; O2SAT 96–100
[2023-07-11] MEDS: INSULIN LISPRO SLIDING SCALE 100 UNITS/ML, 3 ML VIAL (humaLOG) SUBCUT PRN ×4 (01:04→17:35)
[2023-07-11 05:06] LABS: ERYTHROCYTE SEDIMENTATION RATE 74 MM/HR (0-20)
[2023-07-11 05:16] LABS: BASOPHILS % (AUTO) 0.6 % (0.0-2.0); EOSINOPHILS # (AUTO) 0.2 K/uL (0.0-0.4); EOSINOPHILS % (AUTO) 2.6 % (0.0-4.0); HEMATOCRIT 24.4 % (36-48); HEMOGLOBIN 8.1 g/dL (12.0-16.0); LYMPHOCYTES # (AUTO) 1.7 K/uL (1.0-5.5); LYMPHOCYTES % (AUTO) 25.5 % (20.5-51.5); MEAN CORPUSCULAR HEMOGLOBIN 29 pg (27-31); MEAN CORPUSCULAR HGB CONC 33 % (32-36); MEAN CORPUSCULAR VOLUME 87 fL (79.0-98.0); MONOCYTES # (AUTO) 0.8 K/uL (0.0-1.0); MONOCYTES % (AUTO) 11.1 % (1.7-9.3); NEUTROPHILS # (AUTO) 4.1 K/uL (1.8-7.7); NEUTROPHILS % (AUTO) 60.2 % (40.0-70.0); PLATELET COUNT (AUTO) 342 K/uL (130-430); RED BLOOD CELL COUNT(AUTO) 2.81 MIL/uL (4.2-6.2); RED CELL DISTRIBUTION WIDTH 15.4 % (9.0-15.0); WHITE BLOOD COUNT (AUTO) 6.8 K/uL (4.8-10.8)
[2023-07-11 06:04] LABS: ALBUMIN 1.3 g/dL (3.4-4.8); CALCIUM 8.1 mg/dL (8.4-11.0); CREATININE 1.08 mg/dL (0.55-1.30); PHOSPHORUS 2.8 mg/dL (2.7-4.5); POTASSIUM 3.5 mmol/L (3.5-5.1); TOTAL BILIRUBIN 0.2 mg/dL (0.0-1.0); TOTAL PROTEIN, SERUM 5.7 g/dL (6.4-8.3)
[2023-07-11] MEDS: hydrALAZINE HCL 10 MG TABLET PO SCH ×3 (06:56→22:09)
[2023-07-11] MEDS: ASPIRIN 81 MG TAB.CHEW NG SCH (08:15)
[2023-07-11] MEDS: MODAFINIL 100 MG TABLET (PROVIGIL) NG SCH (08:15)
[2023-07-11] MEDS: PHENYTOIN 100 MG/4 ML UDC (DILANTIN) NG SCH ×2 (08:15→22:06)
[2023-07-11] MEDS: PANTOPRAZOLE SODIUM 40 MG/VIAL (PROTONIX) IVP SCH (08:16)
[2023-07-11] MEDS: CLOPIDOGREL BISULFATE 75 MG TABLET NG SCH (08:17)
[2023-07-11] MEDS: amLODIPine BESYLATE 10 MG TABLET NG SCH (08:17)
[2023-07-11] MEDS: METOPROLOL TARTRATE 50 MG TABLET NG SCH ×2 (08:17→22:05)
[2023-07-11] MEDS: CHOLECALCIFEROL (VITAMIN D3) 5,000 UNIT TABLET NG SCH (08:18)
[2023-07-11] MEDS: LevETIRAcetam 500 MG/5 ML UDC ORAL LIQUID NG SCH ×2 (08:19→22:04)
[2023-07-11] MEDS: CEFEPIME 2 GM in D5W 100 ML IV SCH ×2 (08:20→22:03)
[2023-07-11] MEDS: VALPROIC ACID ORAL SYRUP 250 MG/5 ML UDC NG SCH ×3 (08:20→22:03)
[2023-07-11] MEDS: LACOSAMIDE 100 MG TABLET NG SCH ×2 (08:21→22:05)
[2023-07-11] MEDS: LINEZOLID 300 ML IV SCH ×2 (08:21→22:06)
[2023-07-11] MEDS: INSULIN GLARGINE 100 UNITS/ML, 10 ML VIAL SUBCUT SCH ×2 (08:38→22:11)
[2023-07-11 10:01] LABS: ALLEN'S TEST POSITIVE (P)
[2023-07-11] MEDS: ATORVASTATIN 20 MG TABLET NG SCH (22:04)
[2023-07-12] VITALS (35 sets, daily range): BP systolic 103–177; PULSE 56–72; RESP 14–28; TEMP 96.8–98.9; O2SAT 95–100
[2023-07-12 05:39] LABS: ERYTHROCYTE SEDIMENTATION RATE 79 MM/HR (0-20)
[2023-07-12 05:43] LABS: BASOPHILS % (AUTO) 0.4 % (0.0-2.0); EOSINOPHILS # (AUTO) 0.1 K/uL (0.0-0.4); EOSINOPHILS % (AUTO) 1.6 % (0.0-4.0); HEMATOCRIT 25.9 % (36-48); HEMOGLOBIN 8.5 g/dL (12.0-16.0); LYMPHOCYTES # (AUTO) 1.5 K/uL (1.0-5.5); LYMPHOCYTES % (AUTO) 19.5 % (20.5-51.5); MEAN CORPUSCULAR HEMOGLOBIN 28 pg (27-31); MEAN CORPUSCULAR HGB CONC 33 % (32-36); MEAN CORPUSCULAR VOLUME 86 fL (79.0-98.0); MONOCYTES # (AUTO) 0.6 K/uL (0.0-1.0); MONOCYTES % (AUTO) 8.1 % (1.7-9.3); NEUTROPHILS # (AUTO) 5.6 K/uL (1.8-7.7); NEUTROPHILS % (AUTO) 70.4 % (40.0-70.0); PLATELET COUNT (AUTO) 362 K/uL (130-430); RED CELL DISTRIBUTION WIDTH 15.6 % (9.0-15.0); WHITE BLOOD COUNT (AUTO) 7.9 K/uL (4.8-10.8)
[2023-07-12 05:58] LABS: CALCIUM 7.9 mg/dL (8.4-11.0); CREATININE 0.92 mg/dL (0.55-1.30)
[2023-07-12 06:01] LABS: POTASSIUM 2.7 mmol/L (3.5-5.1)
[2023-07-12] MEDS: CEFEPIME 2 GM in D5W 100 ML IV SCH ×2 (09:00→20:15)
[2023-07-12] MEDS: VALPROIC ACID ORAL SYRUP 250 MG/5 ML UDC NG SCH ×3 (09:01→20:19)
[2023-07-12] MEDS: LINEZOLID 300 ML IV SCH ×2 (09:01→20:13)
[2023-07-12] MEDS: LevETIRAcetam 500 MG/5 ML UDC ORAL LIQUID NG SCH ×2 (09:02→20:11)
[2023-07-12] MEDS: PHENYTOIN 100 MG/4 ML UDC (DILANTIN) NG SCH ×2 (09:02→20:10)
[2023-07-12] MEDS: PANTOPRAZOLE SODIUM 40 MG/VIAL (PROTONIX) IVP SCH (09:03)
[2023-07-12] MEDS: ASPIRIN 81 MG TAB.CHEW NG SCH (09:03)
[2023-07-12] MEDS: amLODIPine BESYLATE 10 MG TABLET NG SCH (09:04)
[2023-07-12] MEDS: MODAFINIL 100 MG TABLET (PROVIGIL) NG SCH (09:05)
[2023-07-12] MEDS: METOPROLOL TARTRATE 50 MG TABLET NG SCH ×2 (09:05→20:12)
[2023-07-12] MEDS: CHOLECALCIFEROL (VITAMIN D3) 5,000 UNIT TABLET NG SCH (09:06)
[2023-07-12] MEDS: CLOPIDOGREL BISULFATE 75 MG TABLET NG SCH (09:07)
[2023-07-12] MEDS: LACOSAMIDE 100 MG TABLET NG SCH ×2 (09:07→20:16)
[2023-07-12] MEDS: INSULIN GLARGINE 100 UNITS/ML, 10 ML VIAL SUBCUT SCH ×2 (09:27→21:11)
[2023-07-12] MEDS: INSULIN LISPRO SLIDING SCALE 100 UNITS/ML, 3 ML VIAL (humaLOG) SUBCUT PRN (12:06)
[2023-07-12] MEDS: SCOPOLAMINE HYDROBROMIDE 1 MG PATCH .72 H (TRANSDERM-SCOP) TD SCH (15:45)
[2023-07-12] MEDS: hydrALAZINE HCL 10 MG TABLET PO SCH (15:45)
[2023-07-12] MEDS: ATORVASTATIN 20 MG TABLET NG SCH (20:12)
[2023-07-12] MEDS ORDERED: KCL 20 mEq in 100 mL (PREMIX) 100 ML IV ONE (23:00)
[2023-07-12] MEDS ORDERED: KCL 40 mEq in 100 mL (PREMIX) 100 ML IV ONE (23:03)
[2023-07-13] VITALS (34 sets, daily range): BP systolic 111–153; PULSE 55–92; RESP 13–30; TEMP 97.1–97.8; O2SAT 99–100
[2023-07-13 06:32] LABS: BASOPHILS # (AUTO) 0.1 K/uL (0.0-0.2); BASOPHILS % (AUTO) 0.8 % (0.0-2.0); EOSINOPHILS # (AUTO) 0.2 K/uL (0.0-0.4); EOSINOPHILS % (AUTO) 3.3 % (0.0-4.0); HEMATOCRIT 24.9 % (36-48); HEMOGLOBIN 8.3 g/dL (12.0-16.0); LYMPHOCYTES # (AUTO) 1.3 K/uL (1.0-5.5); LYMPHOCYTES % (AUTO) 17.5 % (20.5-51.5); MEAN CORPUSCULAR HEMOGLOBIN 29 pg (27-31); MEAN CORPUSCULAR HGB CONC 33 % (32-36); MEAN CORPUSCULAR VOLUME 87 fL (79.0-98.0); MONOCYTES # (AUTO) 0.7 K/uL (0.0-1.0); MONOCYTES % (AUTO) 8.9 % (1.7-9.3); NEUTROPHILS # (AUTO) 5.1 K/uL (1.8-7.7); NEUTROPHILS % (AUTO) 69.5 % (40.0-70.0); PLATELET COUNT (AUTO) 336 K/uL (130-430); RED BLOOD CELL COUNT(AUTO) 2.88 MIL/uL (4.2-6.2); WHITE BLOOD COUNT (AUTO) 7.4 K/uL (4.8-10.8)
[2023-07-13 06:46] LABS: ALBUMIN 1.4 g/dL (3.4-4.8); CALCIUM 8.1 mg/dL (8.4-11.0); CREATININE 0.96 mg/dL (0.55-1.30); POTASSIUM 3.3 mmol/L (3.5-5.1); TOTAL BILIRUBIN 0.2 mg/dL (0.0-1.0); TOTAL PROTEIN, SERUM 5.8 g/dL (6.4-8.3)
[2023-07-13 07:45] LABS: ERYTHROCYTE SEDIMENTATION RATE 76 MM/HR (0-20)
[2023-07-13] MEDS: PANTOPRAZOLE SODIUM 40 MG/VIAL (PROTONIX) IVP SCH (08:27)
[2023-07-13] MEDS: LINEZOLID 300 ML IV SCH ×2 (08:27→21:55)
[2023-07-13] MEDS: ASPIRIN 81 MG TAB.CHEW NG SCH (08:28)
[2023-07-13] MEDS: VALPROIC ACID ORAL SYRUP 250 MG/5 ML UDC NG SCH ×3 (08:28→21:54)
[2023-07-13] MEDS: PHENYTOIN 100 MG/4 ML UDC (DILANTIN) NG SCH ×2 (08:28→21:54)
[2023-07-13] MEDS: LevETIRAcetam 500 MG/5 ML UDC ORAL LIQUID NG SCH ×2 (08:29→21:55)
[2023-07-13] MEDS: CHOLECALCIFEROL (VITAMIN D3) 5,000 UNIT TABLET NG SCH (08:30)
[2023-07-13] MEDS: MODAFINIL 100 MG TABLET (PROVIGIL) NG SCH (08:30)
[2023-07-13] MEDS: CLOPIDOGREL BISULFATE 75 MG TABLET NG SCH (08:30)
[2023-07-13] MEDS: amLODIPine BESYLATE 10 MG TABLET NG SCH (08:31)
[2023-07-13] MEDS: METOPROLOL TARTRATE 50 MG TABLET NG SCH ×2 (08:31→21:52)
[2023-07-13] MEDS: LACOSAMIDE 100 MG TABLET NG SCH ×2 (08:38→21:51)
[2023-07-13] MEDS: INSULIN GLARGINE 100 UNITS/ML, 10 ML VIAL SUBCUT SCH ×2 (08:42→22:20)
[2023-07-13] MEDS: CEFEPIME 2 GM in D5W 100 ML IV SCH ×2 (08:56→21:55)
[2023-07-13] MEDS ORDERED: POTASSIUM CHLORIDE 20 MEQ/PKT PACKET GT ONE (09:45)
[2023-07-13] MEDS: INSULIN LISPRO SLIDING SCALE 100 UNITS/ML, 3 ML VIAL (humaLOG) SUBCUT PRN ×2 (12:13→23:57)
[2023-07-13] MEDS: hydrALAZINE HCL 10 MG TABLET PO SCH ×2 (14:58→21:54)
[2023-07-13] MEDS: ATORVASTATIN 20 MG TABLET NG SCH (21:53)
[2023-07-14] VITALS (35 sets, daily range): BP systolic 115–180; PULSE 57–78; RESP 14–31; TEMP 96.9–98.2; O2SAT 97–100
[2023-07-14 05:42] LABS: BASOPHILS # (AUTO) 0.1 K/uL (0.0-0.2); EOSINOPHILS # (AUTO) 0.3 K/uL (0.0-0.4); EOSINOPHILS % (AUTO) 3.8 % (0.0-4.0); HEMOGLOBIN 8.7 g/dL (12.0-16.0); LYMPHOCYTES # (AUTO) 1.9 K/uL (1.0-5.5); LYMPHOCYTES % (AUTO) 25.4 % (20.5-51.5); MEAN CORPUSCULAR HEMOGLOBIN 29 pg (27-31); MEAN CORPUSCULAR HGB CONC 34 % (32-36); MEAN CORPUSCULAR VOLUME 87 fL (79.0-98.0); MONOCYTES # (AUTO) 0.6 K/uL (0.0-1.0); MONOCYTES % (AUTO) 8.5 % (1.7-9.3); NEUTROPHILS # (AUTO) 4.6 K/uL (1.8-7.7); NEUTROPHILS % (AUTO) 61.3 % (40.0-70.0); PLATELET COUNT (AUTO) 364 K/uL (130-430); RED BLOOD CELL COUNT(AUTO) 2.97 MIL/uL (4.2-6.2); RED CELL DISTRIBUTION WIDTH 16.8 % (9.0-15.0); WHITE BLOOD COUNT (AUTO) 7.5 K/uL (4.8-10.8)
[2023-07-14 06:03] LABS: CALCIUM 8.3 mg/dL (8.4-11.0); CREATININE 0.89 mg/dL (0.55-1.30); POTASSIUM 3.4 mmol/L (3.5-5.1)
[2023-07-14] MEDS: hydrALAZINE HCL 10 MG TABLET PO SCH ×3 (06:05→20:10)
[2023-07-14] MEDS: INSULIN LISPRO SLIDING SCALE 100 UNITS/ML, 3 ML VIAL (humaLOG) SUBCUT PRN (06:06)
[2023-07-14 06:26] LABS: ERYTHROCYTE SEDIMENTATION RATE 81 MM/HR (0-20)
[2023-07-14 07:58] LABS: ABG O2 SAT% ESTIMATE 97.1 % (94.0-100.0); BLOOD GAS BASE EXCESS 2.2 mmol/L (-3.0-3.0); BLOOD GAS HCO3 27.3 mmol/L (21.0-27.0); BLOOD GAS PCO2 44.3 mmHg (35.0-45.0); BLOOD GAS PH 7.408 (7.350-7.450); BLOOD GAS PO2 92.9 mmHg (75.0-100.0)
[2023-07-14 08:12] LABS: ALLEN'S TEST POSITIVE (P)
[2023-07-14] MEDS: LINEZOLID 300 ML IV SCH ×2 (08:20→20:04)
[2023-07-14] MEDS: METOPROLOL TARTRATE 50 MG TABLET NG SCH ×2 (08:21→20:07)
[2023-07-14] MEDS: CEFEPIME 2 GM in D5W 100 ML IV SCH (08:21)
[2023-07-14] MEDS: PHENYTOIN 100 MG/4 ML UDC (DILANTIN) NG SCH ×2 (08:21→20:05)
[2023-07-14] MEDS: LevETIRAcetam 500 MG/5 ML UDC ORAL LIQUID NG SCH ×2 (08:22→20:05)
[2023-07-14] MEDS: PANTOPRAZOLE SODIUM 40 MG/VIAL (PROTONIX) IVP SCH (08:22)
[2023-07-14] MEDS: amLODIPine BESYLATE 10 MG TABLET NG SCH (08:22)
[2023-07-14] MEDS: ASPIRIN 81 MG TAB.CHEW NG SCH (08:23)
[2023-07-14] MEDS: CLOPIDOGREL BISULFATE 75 MG TABLET NG SCH (08:24)
[2023-07-14] MEDS: MODAFINIL 100 MG TABLET (PROVIGIL) NG SCH (08:24)
[2023-07-14] MEDS: CHOLECALCIFEROL (VITAMIN D3) 5,000 UNIT TABLET NG SCH (08:25)
[2023-07-14] MEDS: LACOSAMIDE 100 MG TABLET NG SCH ×2 (08:25→20:08)
[2023-07-14] MEDS: INSULIN GLARGINE 100 UNITS/ML, 10 ML VIAL SUBCUT SCH ×2 (08:29→20:01)
[2023-07-14] MEDS: VALPROIC ACID ORAL SYRUP 250 MG/5 ML UDC NG SCH ×3 (08:30→20:04)
[2023-07-14] MEDS ORDERED: POTASSIUM CHLORIDE 20 MEQ/PKT PACKET GT ONE (09:45)
[2023-07-14] MEDS ORDERED: CALCIUM GLUCONATE 2 GM in NS 100 ML IV ONE (11:00)
[2023-07-14] MEDS ORDERED: NS 1000 ML IV.SOLN IV ONE (11:58)
[2023-07-14] MEDS ORDERED: NS IRRIG SOLN 1000 ML IR ONE (11:58)
[2023-07-14] MEDS ORDERED: LIDOCAINE/EPI 1% 1:100000 20 ML VIAL ONE (11:58)
[2023-07-14] MEDS ORDERED: SEVOFLURANE 15 MIN GAS INH ONE (11:58)
[2023-07-14] MEDS ORDERED: MIDAZOLAM HCL 5 MG/5 ML VIAL IVP PRN (12:30)
[2023-07-14] MEDS ORDERED: METOCLOPRAMIDE HCL 10 MG/2 ML VIAL IVP PRN (12:30)
[2023-07-14] MEDS ORDERED: KETOROLAC TROMETHAMINE 30 MG VIAL IVP PRN (12:30)
[2023-07-14] MEDS ORDERED: MORPHINE 4 MG INJ. 4 MG/ML VIAL IVP PRN (12:30)
[2023-07-14] MEDS ORDERED: ONDANSETRON HCL 4 MG/2 ML VIAL IVP PRN (12:30)
[2023-07-14] MEDS ORDERED: POTASSIUM CHLORIDE 20 MEQ/PKT PACKET ONE (13:42)
[2023-07-14] MEDS: ATORVASTATIN 20 MG TABLET NG SCH (20:06)
[2023-07-14] MEDS ORDERED: MORPHINE 2 MG/ML INJ. SYRINGE IVP ONE (22:00)
[2023-07-15] VITALS (36 sets, daily range): BP systolic 108–196; PULSE 56–88; RESP 14–30; TEMP 96.4–98.5; O2SAT 98–100
[2023-07-15] MEDS: INSULIN LISPRO SLIDING SCALE 100 UNITS/ML, 3 ML VIAL (humaLOG) SUBCUT PRN ×3 (00:42→17:49)
[2023-07-15] MEDS: hydrALAZINE HCL 10 MG TABLET PO SCH ×3 (05:25→21:15)
[2023-07-15 05:48] LABS: ERYTHROCYTE SEDIMENTATION RATE 96 MM/HR (0-20)
[2023-07-15 05:59] LABS: BASOPHILS # (AUTO) 0.1 K/uL (0.0-0.2); BASOPHILS % (AUTO) 0.9 % (0.0-2.0); EOSINOPHILS # (AUTO) 0.3 K/uL (0.0-0.4); EOSINOPHILS % (AUTO) 3.6 % (0.0-4.0); HEMATOCRIT 27.8 % (36-48); HEMOGLOBIN 9.3 g/dL (12.0-16.0); LYMPHOCYTES # (AUTO) 1.4 K/uL (1.0-5.5); LYMPHOCYTES % (AUTO) 19.8 % (20.5-51.5); MEAN CORPUSCULAR HEMOGLOBIN 29 pg (27-31); MEAN CORPUSCULAR HGB CONC 33 % (32-36); MEAN CORPUSCULAR VOLUME 87 fL (79.0-98.0); MONOCYTES # (AUTO) 0.6 K/uL (0.0-1.0); MONOCYTES % (AUTO) 8.6 % (1.7-9.3); NEUTROPHILS # (AUTO) 4.8 K/uL (1.8-7.7); NEUTROPHILS % (AUTO) 67.1 % (40.0-70.0); PLATELET COUNT (AUTO) 398 K/uL (130-430); RED BLOOD CELL COUNT(AUTO) 3.18 MIL/uL (4.2-6.2); RED CELL DISTRIBUTION WIDTH 16.7 % (9.0-15.0); WHITE BLOOD COUNT (AUTO) 7.1 K/uL (4.8-10.8)
[2023-07-15 06:15] LABS: ALBUMIN 1.6 g/dL (3.4-4.8); CALCIUM 8.5 mg/dL (8.4-11.0); CREATININE 0.84 mg/dL (0.55-1.30); PHOSPHORUS 2.2 mg/dL (2.7-4.5); POTASSIUM 3.4 mmol/L (3.5-5.1); TOTAL BILIRUBIN 0.2 mg/dL (0.0-1.0); TOTAL PROTEIN, SERUM 6.5 g/dL (6.4-8.3)
[2023-07-15] MEDS: LINEZOLID 300 ML IV SCH ×2 (08:15→21:13)
[2023-07-15] MEDS: METOPROLOL TARTRATE 50 MG TABLET NG SCH (08:16)
[2023-07-15] MEDS: CLOPIDOGREL BISULFATE 75 MG TABLET NG SCH (08:16)
[2023-07-15] MEDS: MODAFINIL 100 MG TABLET (PROVIGIL) NG SCH (08:16)
[2023-07-15] MEDS: PHENYTOIN 100 MG/4 ML UDC (DILANTIN) NG SCH ×2 (08:17→21:14)
[2023-07-15] MEDS: amLODIPine BESYLATE 10 MG TABLET NG SCH (08:17)
[2023-07-15] MEDS: CHOLECALCIFEROL (VITAMIN D3) 5,000 UNIT TABLET NG SCH (08:17)
[2023-07-15] MEDS: LACOSAMIDE 100 MG TABLET NG SCH ×2 (08:17→21:14)
[2023-07-15] MEDS: ASPIRIN 81 MG TAB.CHEW NG SCH (08:18)
[2023-07-15] MEDS: VALPROIC ACID ORAL SYRUP 250 MG/5 ML UDC NG SCH ×3 (08:18→21:14)
[2023-07-15] MEDS: PANTOPRAZOLE SODIUM 40 MG/VIAL (PROTONIX) IVP SCH (08:18)
[2023-07-15] MEDS: LevETIRAcetam 500 MG/5 ML UDC ORAL LIQUID NG SCH ×2 (08:18→21:13)
[2023-07-15] MEDS: INSULIN GLARGINE 100 UNITS/ML, 10 ML VIAL SUBCUT SCH ×2 (08:23→21:16)
[2023-07-15] MEDS ORDERED: NALOXONE HCL 0.4 MG/ML AMP (NARCAN) IVP PRN ×3 (09:30)
[2023-07-15] MEDS ORDERED: ACETAMINOPHEN 325 MG TABLET GT PRN (09:30)
[2023-07-15] MEDS ORDERED: hydrALAZINE HCL 20 MG/ML VIAL IVP PRN (09:30)
[2023-07-15] MEDS ORDERED: HYDROcodone/ACETAMIN 5-325 MG TAB (NORCO/ VICODIN) GT PRN (09:30)
[2023-07-15] MEDS ORDERED: K PHOS 30 MM in NS 250 ML IV ONE (10:15)
[2023-07-15] MEDS: MORPHINE 2 MG/ML INJ. SYRINGE IVP PRN (10:31)
[2023-07-15] MEDS ORDERED: amLODIPine BESYLATE 10 MG TABLET PO SCH (11:30)
[2023-07-15] MEDS ORDERED: LISINOPRIL 10 MG TABLET (PRINIVIL) PO ONE (12:00)
[2023-07-15] MEDS ORDERED: niCARdipine 25 MG in D5W 240 ML IV PRN (12:00)
[2023-07-15] MEDS: SCOPOLAMINE HYDROBROMIDE 1 MG PATCH .72 H (TRANSDERM-SCOP) TD SCH (12:19)
[2023-07-15] MEDS: ATORVASTATIN 20 MG TABLET NG SCH (21:15)
[2023-07-15] MEDS: METOPROLOL TARTRATE 25 MG TABLET NG SCH (21:15)
[2023-07-15] MEDS: HYDROcodone/ACETAMIN 10-325 MG TAB GT PRN (21:19)
[2023-07-16] VITALS (36 sets, daily range): BP systolic 110–174; PULSE 65–84; RESP 14–26; TEMP 96.4–98.6; O2SAT 99–100
[2023-07-16] MEDS: INSULIN LISPRO SLIDING SCALE 100 UNITS/ML, 3 ML VIAL (humaLOG) SUBCUT PRN ×2 (00:36→06:07)
[2023-07-16 05:43] LABS: BASOPHILS % (AUTO) 0.6 % (0.0-2.0); EOSINOPHILS # (AUTO) 0.2 K/uL (0.0-0.4); EOSINOPHILS % (AUTO) 2.5 % (0.0-4.0); HEMATOCRIT 25.3 % (36-48); HEMOGLOBIN 8.3 g/dL (12.0-16.0); LYMPHOCYTES # (AUTO) 1.8 K/uL (1.0-5.5); LYMPHOCYTES % (AUTO) 22.5 % (20.5-51.5); MEAN CORPUSCULAR HEMOGLOBIN 29 pg (27-31); MEAN CORPUSCULAR HGB CONC 33 % (32-36); MEAN CORPUSCULAR VOLUME 88 fL (79.0-98.0); MONOCYTES # (AUTO) 0.6 K/uL (0.0-1.0); MONOCYTES % (AUTO) 7.7 % (1.7-9.3); NEUTROPHILS # (AUTO) 5.2 K/uL (1.8-7.7); NEUTROPHILS % (AUTO) 66.7 % (40.0-70.0); PLATELET COUNT (AUTO) 294 K/uL (130-430); RED BLOOD CELL COUNT(AUTO) 2.88 MIL/uL (4.2-6.2); RED CELL DISTRIBUTION WIDTH 17.5 % (9.0-15.0); WHITE BLOOD COUNT (AUTO) 7.8 K/uL (4.8-10.8)
[2023-07-16 05:50] LABS: CALCIUM 7.8 mg/dL (8.4-11.0); CREATININE 0.89 mg/dL (0.55-1.30); POTASSIUM 3.4 mmol/L (3.5-5.1)
[2023-07-16 05:53] LABS: ERYTHROCYTE SEDIMENTATION RATE 73 MM/HR (0-20)
[2023-07-16] MEDS: hydrALAZINE HCL 10 MG TABLET PO SCH ×2 (06:04→14:06)
[2023-07-16] MEDS: LINEZOLID 300 ML IV SCH ×2 (08:38→20:23)
[2023-07-16] MEDS: PANTOPRAZOLE SODIUM 40 MG/VIAL (PROTONIX) IVP SCH (08:38)
[2023-07-16] MEDS: ASPIRIN 81 MG TAB.CHEW NG SCH (08:38)
[2023-07-16] MEDS: VALPROIC ACID ORAL SYRUP 250 MG/5 ML UDC NG SCH ×3 (08:38→20:24)
[2023-07-16] MEDS: LevETIRAcetam 500 MG/5 ML UDC ORAL LIQUID NG SCH ×2 (08:39→20:24)
[2023-07-16] MEDS: METOPROLOL TARTRATE 25 MG TABLET NG SCH (08:40)
[2023-07-16] MEDS: MODAFINIL 100 MG TABLET (PROVIGIL) NG SCH (08:41)
[2023-07-16] MEDS: LACOSAMIDE 100 MG TABLET NG SCH ×2 (08:41→20:25)
[2023-07-16] MEDS: CLOPIDOGREL BISULFATE 75 MG TABLET NG SCH (08:41)
[2023-07-16] MEDS: amLODIPine BESYLATE 10 MG TABLET NG SCH (08:41)
[2023-07-16] MEDS: CHOLECALCIFEROL (VITAMIN D3) 5,000 UNIT TABLET NG SCH (08:42)
[2023-07-16] MEDS: INSULIN GLARGINE 100 UNITS/ML, 10 ML VIAL SUBCUT SCH ×2 (08:45→20:26)
[2023-07-16] MEDS ORDERED: LISINOPRIL 10 MG TABLET (PRINIVIL) PO SCH (09:00)
[2023-07-16] MEDS: PHENYTOIN 100 MG/4 ML UDC (DILANTIN) NG SCH ×2 (09:50→20:24)
[2023-07-16] MEDS ORDERED: POTASSIUM CHLORIDE 20 MEQ/PKT PACKET GT ONE (11:45)
[2023-07-16] MEDS ORDERED: CALCIUM GLUCONATE 2 GM in NS 100 ML IV ONE (13:00)
[2023-07-16] MEDS: HYDROcodone/ACETAMIN 10-325 MG TAB GT PRN (14:07)
[2023-07-16] MEDS: ATORVASTATIN 20 MG TABLET NG SCH (20:24)
[2023-07-17] VITALS (35 sets, daily range): BP systolic 92–172; PULSE 71–89; RESP 15–25; TEMP 97.2–98.5; O2SAT 99–100
[2023-07-17 05:47] LABS: BASOPHILS # (AUTO) 0.1 K/uL (0.0-0.2); BASOPHILS % (AUTO) 0.8 % (0.0-2.0); EOSINOPHILS # (AUTO) 0.2 K/uL (0.0-0.4); EOSINOPHILS % (AUTO) 2.9 % (0.0-4.0); HEMATOCRIT 26.7 % (36-48); HEMOGLOBIN 8.7 g/dL (12.0-16.0); LYMPHOCYTES # (AUTO) 1.6 K/uL (1.0-5.5); LYMPHOCYTES % (AUTO) 24.3 % (20.5-51.5); MEAN CORPUSCULAR HEMOGLOBIN 29 pg (27-31); MEAN CORPUSCULAR HGB CONC 33 % (32-36); MEAN CORPUSCULAR VOLUME 88 fL (79.0-98.0); MONOCYTES # (AUTO) 0.6 K/uL (0.0-1.0); MONOCYTES % (AUTO) 8.8 % (1.7-9.3); NEUTROPHILS # (AUTO) 4.2 K/uL (1.8-7.7); NEUTROPHILS % (AUTO) 63.2 % (40.0-70.0); PLATELET COUNT (AUTO) 329 K/uL (130-430); RED BLOOD CELL COUNT(AUTO) 3.02 MIL/uL (4.2-6.2); RED CELL DISTRIBUTION WIDTH 18.1 % (9.0-15.0); WHITE BLOOD COUNT (AUTO) 6.6 K/uL (4.8-10.8)
[2023-07-17 06:05] LABS: ERYTHROCYTE SEDIMENTATION RATE 81 MM/HR (0-20)
[2023-07-17 06:17] LABS: CALCIUM 8.4 mg/dL (8.4-11.0); CREATININE 0.89 mg/dL (0.55-1.30); POTASSIUM 4.3 mmol/L (3.5-5.1); THYROID STIMULATING HORMONE 2.29 uIu/mL (0.34-4.82)
[2023-07-17] MEDS: hydrALAZINE HCL 20 MG/ML VIAL IVP PRN (06:18)
[2023-07-17] MEDS: CHOLECALCIFEROL (VITAMIN D3) 5,000 UNIT TABLET NG SCH (08:22)
[2023-07-17] MEDS: lisinopriL 20 MG TABLET GT SCH (08:22)
[2023-07-17] MEDS: ASPIRIN 81 MG TAB.CHEW NG SCH (08:23)
[2023-07-17] MEDS: amLODIPine BESYLATE 10 MG TABLET NG SCH (08:23)
[2023-07-17] MEDS: CLOPIDOGREL BISULFATE 75 MG TABLET NG SCH (08:23)
[2023-07-17] MEDS: MODAFINIL 100 MG TABLET (PROVIGIL) NG SCH (08:23)
[2023-07-17] MEDS: PHENYTOIN 100 MG/4 ML UDC (DILANTIN) NG SCH ×2 (08:25→20:42)
[2023-07-17] MEDS: LACOSAMIDE 100 MG TABLET NG SCH ×2 (08:25→20:43)
[2023-07-17] MEDS: LINEZOLID 300 ML IV SCH (08:26)
[2023-07-17] MEDS: PANTOPRAZOLE SODIUM 40 MG/VIAL (PROTONIX) IVP SCH (08:26)
[2023-07-17] MEDS: LevETIRAcetam 500 MG/5 ML UDC ORAL LIQUID NG SCH ×2 (08:27→20:42)
[2023-07-17] MEDS: VALPROIC ACID ORAL SYRUP 250 MG/5 ML UDC NG SCH ×3 (08:28→20:42)
[2023-07-17] MEDS: INSULIN GLARGINE 100 UNITS/ML, 10 ML VIAL SUBCUT SCH ×2 (08:32→21:08)
[2023-07-17] MEDS: INSULIN LISPRO SLIDING SCALE 100 UNITS/ML, 3 ML VIAL (humaLOG) SUBCUT PRN ×2 (12:02→23:37)
[2023-07-17] MEDS: ATORVASTATIN 20 MG TABLET NG SCH (20:43)
[2023-07-18] VITALS (32 sets, daily range): BP systolic 79–186; PULSE 53–94; RESP 14–18; TEMP 97.2–98; O2SAT 98–100
[2023-07-18 05:00] LABS: ERYTHROCYTE SEDIMENTATION RATE 69 MM/HR (0-20)
[2023-07-18 05:07] LABS: BASOPHILS # (AUTO) 0.1 K/uL (0.0-0.2); BASOPHILS % (AUTO) 1.1 % (0.0-2.0); EOSINOPHILS # (AUTO) 0.2 K/uL (0.0-0.4); HEMATOCRIT 23.5 % (36-48); HEMOGLOBIN 7.8 g/dL (12.0-16.0); LYMPHOCYTES # (AUTO) 1.4 K/uL (1.0-5.5); LYMPHOCYTES % (AUTO) 19.4 % (20.5-51.5); MEAN CORPUSCULAR HEMOGLOBIN 29 pg (27-31); MEAN CORPUSCULAR HGB CONC 33 % (32-36); MEAN CORPUSCULAR VOLUME 89 fL (79.0-98.0); MONOCYTES # (AUTO) 0.8 K/uL (0.0-1.0); MONOCYTES % (AUTO) 10.8 % (1.7-9.3); NEUTROPHILS # (AUTO) 4.6 K/uL (1.8-7.7); NEUTROPHILS % (AUTO) 65.7 % (40.0-70.0); PLATELET COUNT (AUTO) 310 K/uL (130-430); RED BLOOD CELL COUNT(AUTO) 2.64 MIL/uL (4.2-6.2)
[2023-07-18 05:27] LABS: ALBUMIN 1.4 g/dL (3.4-4.8); CALCIUM 8.4 mg/dL (8.4-11.0); CREATININE 0.89 mg/dL (0.55-1.30); PHOSPHORUS 3.4 mg/dL (2.7-4.5); POTASSIUM 3.5 mmol/L (3.5-5.1); TOTAL BILIRUBIN 0.2 mg/dL (0.0-1.0); TOTAL PROTEIN, SERUM 5.8 g/dL (6.4-8.3)
[2023-07-18] MEDS ORDERED: MENTHOL/ZINC OXIDE 113 GM OINT. TP SCH (09:00)
[2023-07-18] MEDS: INSULIN GLARGINE 100 UNITS/ML, 10 ML VIAL SUBCUT SCH (11:10)
[2023-07-18] MEDS: PANTOPRAZOLE SODIUM 40 MG/VIAL (PROTONIX) IVP SCH (11:13)
[2023-07-18] MEDS: lisinopriL 20 MG TABLET GT SCH (11:18)
[2023-07-18] MEDS: CHOLECALCIFEROL (VITAMIN D3) 5,000 UNIT TABLET NG SCH (11:18)
[2023-07-18] MEDS: CLOPIDOGREL BISULFATE 75 MG TABLET NG SCH (11:19)
[2023-07-18] MEDS: amLODIPine BESYLATE 10 MG TABLET NG SCH (11:20)
[2023-07-18] MEDS: MODAFINIL 100 MG TABLET (PROVIGIL) NG SCH (11:21)
[2023-07-18] MEDS: ASPIRIN 81 MG TAB.CHEW NG SCH (11:22)
[2023-07-18] MEDS: PHENYTOIN 100 MG/4 ML UDC (DILANTIN) NG SCH (11:22)
[2023-07-18] MEDS: SCOPOLAMINE HYDROBROMIDE 1 MG PATCH .72 H (TRANSDERM-SCOP) TD SCH (11:23)
[2023-07-18] MEDS: VALPROIC ACID ORAL SYRUP 250 MG/5 ML UDC NG SCH ×2 (11:24→15:00)
[2023-07-18] MEDS: LevETIRAcetam 500 MG/5 ML UDC ORAL LIQUID NG SCH (11:24)
[2023-07-18] MEDS: LACOSAMIDE 100 MG TABLET NG SCH (11:26)
[2023-07-18] MEDS: hydrALAZINE HCL 20 MG/ML VIAL IVP PRN (12:30)
[2023-07-18] MEDS: MORPHINE 2 MG/ML INJ. SYRINGE IVP PRN (12:34)
== END 2023-07-18 20:24 | DRG 5 ==
LOC: SED 13:37 → SIC 07-03 14:49
PROVIDERS: ADMIT Preventive Medicine Preventive Medicine/Occupational Environmental Medicine; ATTEND Preventive Medicine Preventive Medicine/Occupational Environmental Medicine
PROC: 5A1955Z Respiratory Ventilation, Greater than 96 Consecutive Hours (ICD-10-PCS; 2023-07-02)
PROC: 0BH17EZ Insertion of Endotracheal Airway into Trachea, Via Natural or Artificial Opening (ICD-10-PCS; 2023-07-02)
PROC: 02HV33Z Insertion of Infusion Device into Superior Vena Cava, Percutaneous Approach (ICD-10-PCS; 2023-07-03)
PROC: B548ZZA Ultrasonography of Superior Vena Cava, Guidance (ICD-10-PCS; 2023-07-03)
PROC: 30233N1 Transfusion of Nonautologous Red Blood Cells into Peripheral Vein, Percutaneous Approach (ICD-10-PCS; 2023-07-04)
PROC: 4A00X4Z Measurement of Central Nervous Electrical Activity, External Approach (ICD-10-PCS; 2023-07-06)
PROC: 0DB78ZX Excision of Stomach, Pylorus, Via Natural or Artificial Opening Endoscopic, Diagnostic (ICD-10-PCS; 2023-07-08)
PROC: 0DBK8ZX Excision of Ascending Colon, Via Natural or Artificial Opening Endoscopic, Diagnostic (ICD-10-PCS; 2023-07-08)
PROC: 4A00X4Z Measurement of Central Nervous Electrical Activity, External Approach (ICD-10-PCS; 2023-07-11)
PROC: 0B110F4 Bypass Trachea to Cutaneous with Tracheostomy Device, Open Approach (ICD-10-PCS; principal; 2023-07-14 11:58)
DX: A41.9 Sepsis, unspecified organism (principal); I63.9 Cerebral infarction, unspecified; G93.41 Metabolic encephalopathy; E43 Unspecified severe protein-calorie malnutrition; J15.212 Pneumonia due to Methicillin resistant Staphylococcus aureus; K25.4 Chronic or unspecified gastric ulcer with hemorrhage; E87.0 Hyperosmolality and hypernatremia; E11.649 Type 2 diabetes mellitus with hypoglycemia without coma; J96.01 Acute respiratory failure with hypoxia; E87.20 Acidosis, unspecified; E83.39 Other disorders of phosphorus metabolism; F03.90 Unspecified dementia, unspecified severity, without behavioral disturbance, psychotic disturbance, mood disturbance, and anxiety; D64.9 Anemia, unspecified; E83.51 Hypocalcemia; E11.65 Type 2 diabetes mellitus with hyperglycemia; E83.52 Hypercalcemia; E87.6 Hypokalemia; E88.09 Other disorders of plasma-protein metabolism, not elsewhere classified; Z20.822 Contact with and (suspected) exposure to COVID-19; G40.909 Epilepsy, unspecified, not intractable, without status epilepticus; E78.00 Pure hypercholesterolemia, unspecified; K44.9 Diaphragmatic hernia without obstruction or gangrene; R13.10 Dysphagia, unspecified; N39.0 Urinary tract infection, site not specified; R74.01 Elevation of levels of liver transaminase levels; E87.1 Hypo-osmolality and hyponatremia; Y95 Nosocomial condition; K29.71 Gastritis, unspecified, with bleeding; K63.5 Polyp of colon; K64.8 Other hemorrhoids; Z79.82 Long term (current) use of aspirin; Z79.899 Other long term (current) drug therapy; Z99.11 Dependence on respirator [ventilator] status; Z79.01 Long term (current) use of anticoagulants; Z79.02 Long term (current) use of antithrombotics/antiplatelets; Z79.4 Long term (current) use of insulin; Z86.73 Personal history of transient ischemic attack (TIA), and cerebral infarction without residual deficits; Z93.1 Gastrostomy status
CPT/HCPCS: 36415; 36600; 43239; 45385; 70450-TC; 70470-TC; 71045; 76376; 80048; 80053; 80307; 81000; 82140; 82306; 82607; 82728; 82746; 82803; 82962; 83010; 83540; 83550; 83605; 83735; 84100; 84436; 84443; 84484; 85025; 85610-TC; 85651-TC; 85730-TC; 86886; 86900; 86901; 86920; 87040; 87070-TC; 87081; 87086; 87186-TC; 87205-TC; 87230-TC; 88305; 88312; 88313; 93005; 93306; 94002; 94003; 94640; 95816; 96365; 99291; A6209; C9113; G0480; G0481; J0360; J0610; J0692; J0696; J1450; J1815; J2020; J2175; J2250; J2270; J2543; J2704; J3370; J3480; J7030; J7050; J7060; P9021

== ENCOUNTER 2023-08-17 12:27 | Inpatient (IN) | payer MEDICAID ==
[~2023-08-17] VITALS: Ht 165.1 cm; Wt 56.7 kg
[~2023-08-17 12:27] MED LIST: ASA81 PO; CLOP75TA32 PO; HYDR-4037 PEG; INSU100V53 SQ; INSU200I SQ; LACO200T2 GT; LEVE1000 PO; LIP40 PO; METO-442 PO; MODA200T48 PO; NOR10 PO; PHEN100O4 PEG; VALP500S4 PEG
[2023-08-17 12:42] VITALS: BP_SYST 150; PULSE 74; RESP 20; TEMP 98; O2SAT 98
[2023-08-17 13:42] LABS: HEMOGLOBIN 7.6 g/dL (12.0-16.0); MEAN CORPUSCULAR VOLUME 88 fL (79.0-98.0); RED BLOOD CELL COUNT(AUTO) 2.74 MIL/uL (4.2-6.2)
[2023-08-17 13:43] LABS: BASOPHILS # (AUTO) 0.2 K/uL (0.0-0.2); BASOPHILS % (AUTO) 0.8 % (0.0-2.0); EOSINOPHILS # (AUTO) 0.1 K/uL (0.0-0.4); EOSINOPHILS % (AUTO) 0.2 % (0.0-4.0); LYMPHOCYTES # (AUTO) 1.5 K/uL (1.0-5.5); MEAN CORPUSCULAR HEMOGLOBIN 28 pg (27-31); MEAN CORPUSCULAR HGB CONC 32 % (32-36); MONOCYTES # (AUTO) 1.3 K/uL (0.0-1.0); NEUTROPHILS # (AUTO) 18.1 K/uL (1.8-7.7); PLATELET COUNT (AUTO) 357 K/uL (130-430); RED CELL DISTRIBUTION WIDTH 16.7 % (9.0-15.0)
[2023-08-17] MEDS ORDERED: cefTRIAXone 2 GM VIAL ONE (14:44)
[2023-08-17 16:33] LABS: ALBUMIN 0.8 g/dL (3.4-4.8); CALCIUM 8.8 mg/dL (8.4-11.0); CREATININE 1.41 mg/dL (0.55-1.30); TOTAL BILIRUBIN 0.1 mg/dL (0.0-1.0); TOTAL PROTEIN, SERUM 6.4 g/dL (6.4-8.3)
[2023-08-17 16:37] LABS: POTASSIUM 2.4 mmol/L (3.5-5.1)
[2023-08-17] MEDS ORDERED: KCL 20 mEq in 100 mL (PREMIX) 100 ML IV ONE (16:45)
[2023-08-17] MEDS ORDERED: LEVE100S PEG (17:23)
[2023-08-17] MEDS ORDERED: ATOR40TA68 PEG (17:24)
[2023-08-17] MEDS ORDERED: INSU100V (17:24)
[2023-08-17] MEDS ORDERED: AMPH20TA PEG (17:24)
[2023-08-17] MEDS ORDERED: CHOL50006 PEG (17:24)
[2023-08-17] MEDS ORDERED: [UNRECOGNIZED DRUG - CODE] PEG (17:24)
[2023-08-17] MEDS ORDERED: LISI20TA PEG (17:24)
[2023-08-17] MEDS ORDERED: ASPI-524 PEG (17:24)
[2023-08-17] MEDS ORDERED: ZINC50TA2 PEG (17:24)
[2023-08-17] MEDS ORDERED: AMIN30LI45 PEG (17:24)
[2023-08-17] MEDS ORDERED: HYDR-3919 PEG (17:24)
[2023-08-17] MEDS ORDERED: PANT40GR PEG (17:24)
[2023-08-17] MEDS ORDERED: ALBU2.5V7 NEB ×2 (17:24)
[2023-08-17] MEDS ORDERED: THOR25 PEG (17:24)
[2023-08-17] MEDS ORDERED: CHLO473M12 PO (17:24)
[2023-08-17] MEDS ORDERED: SCOP1PAT TD (17:24)
[2023-08-17] MEDS ORDERED: ASCO500L4 PEG (17:24)
[2023-08-17] MEDS ORDERED: AMLO10TA88 PEG (17:24)
[2023-08-17] MEDS ORDERED: LACO10SO12 PEG (17:24)
[2023-08-17] MEDS ORDERED: POTASSIUM CHLORIDE 20 MEQ in NS 250 ML IV ONE (17:30)
[2023-08-17 17:50] LABS: PROTHROMBIN TIME 10.2 SECS (9.5-12.5)
[2023-08-17 18:21] LABS: CLARITY/URINE SLIGHTLY CLOUDY (CLEAR); COLOR,URINE YELLOW (YELLOW)
[2023-08-17 18:22] LABS: BILIRUBIN,URINE NEGATIVE (NEGATIVE); BLOOD, URINE 3+ (NEGATIVE); GLUCOSE,URINE NEGATIVE (NEGATIVE); KETONES,URINE NEGATIVE (NEGATIVE); PROTEIN URINE 2+ (NEGATIVE)
[2023-08-17 18:28] LABS: LEUKOCYTE ESTERASE ,URINE 3+ (NEGATIVE); NITRITE, URINE NEGATIVE (NEGATIVE); UROBILINOGEN,URINE 0.2 (0.2-1.0)
[2023-08-17 18:37] LABS: INFLUENZA TYPE A Negative (NEGATIVE); INFLUENZA TYPE B NEGATIVE (NEGATIVE)
[2023-08-17 18:41] LABS: BACTERIA,URINE MODERATE /HPF (None Seen); RBC,URINE >100 /HPF (0-3); WBC,URINE >100 /HPF (0-3)
[2023-08-17] MEDS ORDERED: KCL 40 mEq in 100 mL (PREMIX) 100 ML IV ONE (18:45)
[2023-08-17] MEDS ORDERED: NACL 0.9% 1,000 ML IV ONE (19:00)
[2023-08-17] MEDS: 0.45% NACL 1,000 ML IV SCH (20:43)
[2023-08-17] MEDS ORDERED: POTASSIUM CHLORIDE 40 MEQ in NS 250 ML IV ONE (21:30)
[2023-08-17 23:27] VITALS: BP_SYST 109; PULSE 91; O2SAT 100
[2023-08-17 23:29] VITALS: PULSE 91
[2023-08-17 23:30] VITALS: BP_SYST 134; PULSE 81; RESP 12; TEMP 100.2; O2SAT 98
[2023-08-18] VITALS (16 sets, daily range): BP systolic 129–146; PULSE 65–106; RESP 16–22; TEMP 98.3–99.9; O2SAT 98–100
[2023-08-18] MEDS: 0.45% NACL 1,000 ML IV SCH ×4 (03:58→23:10)
[2023-08-18 06:30] LABS: BASOPHILS # (AUTO) 0.1 K/uL (0.0-0.2); BASOPHILS % (AUTO) 0.4 % (0.0-2.0); EOSINOPHILS # (AUTO) 0.1 K/uL (0.0-0.4); EOSINOPHILS % (AUTO) 0.4 % (0.0-4.0); LYMPHOCYTES # (AUTO) 1.1 K/uL (1.0-5.5); LYMPHOCYTES % (AUTO) 6.9 % (20.5-51.5); MEAN CORPUSCULAR HEMOGLOBIN 28 pg (27-31); MEAN CORPUSCULAR HGB CONC 32 % (32-36); MEAN CORPUSCULAR VOLUME 87 fL (79.0-98.0); MONOCYTES # (AUTO) 1.2 K/uL (0.0-1.0); MONOCYTES % (AUTO) 7.4 % (1.7-9.3); NEUTROPHILS # (AUTO) 13.9 K/uL (1.8-7.7); NEUTROPHILS % (AUTO) 84.9 % (40.0-70.0); PLATELET COUNT (AUTO) 254 K/uL (130-430); RED BLOOD CELL COUNT(AUTO) 2.14 MIL/uL (4.2-6.2); RED CELL DISTRIBUTION WIDTH 16.6 % (9.0-15.0); WHITE BLOOD COUNT (AUTO) 16.3 K/uL (4.8-10.8)
[2023-08-18 06:45] LABS: CALCIUM 8.3 mg/dL (8.4-11.0); CREATININE 1.06 mg/dL (0.55-1.30)
[2023-08-18 07:27] LABS: POTASSIUM 2.2 mmol/L (3.5-5.1)
[2023-08-18 07:28] LABS: HEMATOCRIT 18.6 % (36-48)
[2023-08-18] MEDS ORDERED: POTASSIUM CHLORIDE 60 MEQ in NS 500 ML IV ONE (07:45)
[2023-08-18] MEDS ORDERED: cefTRIAXone 1 GM IVPB PREMIX 50 ML IV SCH (09:00)
[2023-08-18 09:38] LABS: INR 1.1 (0.8-1.2); PROTHROMBIN TIME 10.9 SECS (9.5-12.5)
[2023-08-18] MEDS ORDERED: SCOPOLAMINE HYDROBROMIDE 1 MG PATCH .72 H (TRANSDERM-SCOP) TD SCH (14:00)
[2023-08-18] MEDS: LevETIRAcetam 500 MG/5 ML UDC ORAL LIQUID GT SCH (15:11)
[2023-08-18] MEDS ORDERED: BALSAM PERU/CASTOR OIL 56.7 GM OINT...G. TP ONE (20:00)
[2023-08-18] MEDS: LACOSAMIDE 100 MG TABLET GT SCH (21:00)
[2023-08-18] MEDS: VALPROIC ACID ORAL SYRUP 250 MG/5 ML UDC GT SCH (22:07)
[2023-08-18] MEDS: PHENYTOIN 100 MG/4 ML UDC (DILANTIN) GT SCH (22:08)
[2023-08-18] MEDS: ATORVASTATIN 20 MG TABLET GT SCH (22:08)
[2023-08-19] VITALS (21 sets, daily range): BP systolic 119–157; PULSE 62–103; RESP 16–20; TEMP 97.7–98.6; O2SAT 97–99
[2023-08-19] MEDS: LevETIRAcetam 500 MG/5 ML UDC ORAL LIQUID GT SCH ×2 (02:44→13:59)
[2023-08-19] MEDS: VALPROIC ACID ORAL SYRUP 250 MG/5 ML UDC GT SCH ×3 (05:43→21:24)
[2023-08-19 07:55] LABS: TOTAL IRON BIND. CAPACITY 99 ug/dL (250-450)
[2023-08-19] MEDS: BALSAM PERU/CASTOR OIL 56.7 GM OINT...G. TP SCH (09:00)
[2023-08-19] MEDS: 0.45% NACL 1,000 ML IV SCH ×3 (10:25→21:24)
[2023-08-19] MEDS: CEFEPIME 2 GM in D5W 100 ML IV SCH ×2 (10:26→21:23)
[2023-08-19] MEDS: PHENYTOIN 100 MG/4 ML UDC (DILANTIN) GT SCH ×2 (10:27→21:22)
[2023-08-19] MEDS: ASCORBIC ACID 500 MG TABLET GT SCH (10:27)
[2023-08-19] MEDS: CHOLECALCIFEROL (VITAMIN D3) 5,000 UNIT TABLET GT SCH (10:27)
[2023-08-19] MEDS: PANTOPRAZOLE SODIUM 40 MG/VIAL (PROTONIX) IVP SCH (10:27)
[2023-08-19] MEDS: amLODIPine BESYLATE 10 MG TABLET GT SCH (10:29)
[2023-08-19] MEDS: LACOSAMIDE 100 MG TABLET GT SCH ×2 (10:37→21:22)
[2023-08-19] MEDS ORDERED: SCOPOLAMINE HYDROBROMIDE 1 MG PATCH .72 H (TRANSDERM-SCOP) TD ONE (12:00)
[2023-08-19] MEDS: ATORVASTATIN 20 MG TABLET GT SCH (21:22)
[2023-08-20] VITALS (17 sets, daily range): BP systolic 151–188; PULSE 62–99; RESP 12–18; TEMP 98.6–99; O2SAT 97–100
[2023-08-20] MEDS: IPRATROPIUM/ALBUTEROL SULFATE 3 ML AMPUL.NEB (DUONEB) INH SCH ×6 (03:00→19:28)
[2023-08-20] MEDS: LevETIRAcetam 500 MG/5 ML UDC ORAL LIQUID GT SCH ×2 (04:05→14:15)
[2023-08-20] MEDS: 0.45% NACL 1,000 ML IV SCH ×4 (04:05→22:02)
[2023-08-20] MEDS: VALPROIC ACID ORAL SYRUP 250 MG/5 ML UDC GT SCH ×3 (05:56→22:01)
[2023-08-20 06:48] LABS: BASOPHILS # (AUTO) 0.1 K/uL (0.0-0.2); BASOPHILS % (AUTO) 0.4 % (0.0-2.0); EOSINOPHILS # (AUTO) 0.1 K/uL (0.0-0.4); HEMATOCRIT 30.4 % (36-48); HEMOGLOBIN 9.8 g/dL (12.0-16.0); LYMPHOCYTES # (AUTO) 1.1 K/uL (1.0-5.5); LYMPHOCYTES % (AUTO) 7.9 % (20.5-51.5); MEAN CORPUSCULAR HEMOGLOBIN 28 pg (27-31); MEAN CORPUSCULAR HGB CONC 32 % (32-36); MEAN CORPUSCULAR VOLUME 88 fL (79.0-98.0); MONOCYTES # (AUTO) 0.8 K/uL (0.0-1.0); NEUTROPHILS # (AUTO) 11.9 K/uL (1.8-7.7); NEUTROPHILS % (AUTO) 84.7 % (40.0-70.0); PLATELET COUNT (AUTO) 312 K/uL (130-430); RED BLOOD CELL COUNT(AUTO) 3.46 MIL/uL (4.2-6.2); RED CELL DISTRIBUTION WIDTH 14.8 % (9.0-15.0)
[2023-08-20 07:18] LABS: ALBUMIN 0.7 g/dL (3.4-4.8); CALCIUM 8.3 mg/dL (8.4-11.0); CREATININE 0.86 mg/dL (0.55-1.30); TOTAL BILIRUBIN 0.1 mg/dL (0.0-1.0)
[2023-08-20 07:31] LABS: POTASSIUM 2.6 mmol/L (3.5-5.1)
[2023-08-20 08:06] LABS: FERRITIN 1939 ng/mL (15-150)
[2023-08-20] MEDS ORDERED: POTASSIUM CHLORIDE 40 MEQ in NS 250 ML IV ONE (09:00)
[2023-08-20 09:06] LABS: FOLATE (FOLIC ACID) 11.3 ng/mL (>3.0)
[2023-08-20] MEDS: POTASSIUM CHLORIDE 20 mEq in 100 mL (PREMIX) 100 ML x 2 doses IV SCH ×2 (09:23→11:11)
[2023-08-20] MEDS: PHENYTOIN 100 MG/4 ML UDC (DILANTIN) GT SCH ×2 (09:25→21:36)
[2023-08-20] MEDS: CEFEPIME 2 GM in D5W 100 ML IV SCH ×2 (09:25→21:38)
[2023-08-20] MEDS: amLODIPine BESYLATE 10 MG TABLET GT SCH (09:26)
[2023-08-20] MEDS: CHOLECALCIFEROL (VITAMIN D3) 5,000 UNIT TABLET GT SCH (09:26)
[2023-08-20] MEDS: ASCORBIC ACID 500 MG TABLET GT SCH (09:26)
[2023-08-20] MEDS: PANTOPRAZOLE SODIUM 40 MG/VIAL (PROTONIX) IVP SCH (09:26)
[2023-08-20] MEDS: LACOSAMIDE 100 MG TABLET GT SCH ×2 (09:26→21:36)
[2023-08-20] MEDS: BALSAM PERU/CASTOR OIL 56.7 GM OINT...G. TP SCH (09:28)
[2023-08-20] MEDS: hydrALAZINE HCL 10 MG TABLET GT PRN (09:43)
[2023-08-20] MEDS ORDERED: POTASSIUM CHLORIDE 20 MEQ TAB.PRT.SR GT ONE (10:00)
[2023-08-20 12:06] LABS: HAPTOGLOBIN 483 mg/dL (37-355)
[2023-08-20] MEDS: ATORVASTATIN 20 MG TABLET GT SCH (21:36)
[2023-08-21] VITALS (18 sets, daily range): BP systolic 156–167; PULSE 80–96; RESP 15–18; TEMP 98.4–98.8; O2SAT 98–100
[2023-08-21] MEDS: LevETIRAcetam 500 MG/5 ML UDC ORAL LIQUID GT SCH ×2 (01:15→14:11)
[2023-08-21] MEDS: IPRATROPIUM/ALBUTEROL SULFATE 3 ML AMPUL.NEB (DUONEB) INH SCH ×4 (03:07→19:59)
[2023-08-21] MEDS: 0.45% NACL 1,000 ML IV SCH ×3 (05:24→17:46)
[2023-08-21] MEDS: VALPROIC ACID ORAL SYRUP 250 MG/5 ML UDC GT SCH ×3 (05:25→22:00)
[2023-08-21 06:10] LABS: BASOPHILS % (AUTO) 0.4 % (0.0-2.0); EOSINOPHILS # (AUTO) 0.2 K/uL (0.0-0.4); EOSINOPHILS % (AUTO) 1.4 % (0.0-4.0); HEMATOCRIT 34.3 % (36-48); HEMOGLOBIN 10.9 g/dL (12.0-16.0); LYMPHOCYTES # (AUTO) 1.2 K/uL (1.0-5.5); LYMPHOCYTES % (AUTO) 10.1 % (20.5-51.5); MEAN CORPUSCULAR HEMOGLOBIN 28 pg (27-31); MEAN CORPUSCULAR HGB CONC 32 % (32-36); MEAN CORPUSCULAR VOLUME 88 fL (79.0-98.0); MONOCYTES # (AUTO) 0.7 K/uL (0.0-1.0); MONOCYTES % (AUTO) 5.8 % (1.7-9.3); NEUTROPHILS # (AUTO) 9.4 K/uL (1.8-7.7); NEUTROPHILS % (AUTO) 82.3 % (40.0-70.0); PLATELET COUNT (AUTO) 301 K/uL (130-430); RED BLOOD CELL COUNT(AUTO) 3.88 MIL/uL (4.2-6.2); RED CELL DISTRIBUTION WIDTH 14.9 % (9.0-15.0); WHITE BLOOD COUNT (AUTO) 11.5 K/uL (4.8-10.8)
[2023-08-21 06:43] LABS: CALCIUM 8.3 mg/dL (8.4-11.0); CREATININE 0.98 mg/dL (0.55-1.30); POTASSIUM 3.5 mmol/L (3.5-5.1)
[2023-08-21] MEDS: INSULIN LISPRO SLIDING SCALE 100 UNITS/ML, 3 ML VIAL (humaLOG) SUBCUT PRN ×4 (08:23→22:04)
[2023-08-21] MEDS: ASCORBIC ACID 500 MG TABLET GT SCH (08:58)
[2023-08-21] MEDS: PANTOPRAZOLE SODIUM 40 MG/VIAL (PROTONIX) IVP SCH (08:58)
[2023-08-21] MEDS: PHENYTOIN 100 MG/4 ML UDC (DILANTIN) GT SCH ×2 (08:59→21:59)
[2023-08-21] MEDS: CHOLECALCIFEROL (VITAMIN D3) 5,000 UNIT TABLET GT SCH (08:59)
[2023-08-21] MEDS: LACOSAMIDE 100 MG TABLET GT SCH ×2 (08:59→21:58)
[2023-08-21] MEDS: amLODIPine BESYLATE 10 MG TABLET GT SCH (09:00)
[2023-08-21] MEDS: BALSAM PERU/CASTOR OIL 56.7 GM OINT...G. TP SCH (09:00)
[2023-08-21] MEDS: CEFEPIME 2 GM in D5W 100 ML IV SCH ×2 (09:01→21:59)
[2023-08-21] MEDS: TOBRAMYCIN 300MG/5ML INH AMPUL.NEB INH SCH (19:00)
[2023-08-21] MEDS: ATORVASTATIN 20 MG TABLET GT SCH (21:59)
[2023-08-22] VITALS (19 sets, daily range): BP systolic 155–183; PULSE 87–107; RESP 15–23; TEMP 98.1–99.5; O2SAT 99–100
[2023-08-22] MEDS: LevETIRAcetam 500 MG/5 ML UDC ORAL LIQUID GT SCH ×2 (01:31→15:16)
[2023-08-22] MEDS: hydrALAZINE HCL 10 MG TABLET GT PRN ×2 (01:33→21:43)
[2023-08-22] MEDS: IPRATROPIUM/ALBUTEROL SULFATE 3 ML AMPUL.NEB (DUONEB) INH SCH ×4 (01:37→19:58)
[2023-08-22] MEDS: 0.45% NACL 1,000 ML IV SCH ×4 (01:53→17:27)
[2023-08-22] MEDS: MENTHOL/ZINC OXIDE 113 GM OINT. TP PRN (04:59)
[2023-08-22] MEDS: VALPROIC ACID ORAL SYRUP 250 MG/5 ML UDC GT SCH ×3 (06:21→21:11)
[2023-08-22] MEDS: INSULIN LISPRO SLIDING SCALE 100 UNITS/ML, 3 ML VIAL (humaLOG) SUBCUT PRN ×4 (06:22→21:45)
[2023-08-22 06:49] LABS: BASOPHILS # (AUTO) 0.1 K/uL (0.0-0.2); BASOPHILS % (AUTO) 0.4 % (0.0-2.0); EOSINOPHILS # (AUTO) 0.1 K/uL (0.0-0.4); EOSINOPHILS % (AUTO) 1.2 % (0.0-4.0); HEMATOCRIT 30.5 % (36-48); LYMPHOCYTES # (AUTO) 1.2 K/uL (1.0-5.5); LYMPHOCYTES % (AUTO) 10.2 % (20.5-51.5); MEAN CORPUSCULAR HEMOGLOBIN 29 pg (27-31); MEAN CORPUSCULAR HGB CONC 33 % (32-36); MEAN CORPUSCULAR VOLUME 87 fL (79.0-98.0); MONOCYTES # (AUTO) 0.8 K/uL (0.0-1.0); MONOCYTES % (AUTO) 6.2 % (1.7-9.3); PLATELET COUNT (AUTO) 296 K/uL (130-430); RED BLOOD CELL COUNT(AUTO) 3.49 MIL/uL (4.2-6.2); RED CELL DISTRIBUTION WIDTH 14.8 % (9.0-15.0); WHITE BLOOD COUNT (AUTO) 12.2 K/uL (4.8-10.8)
[2023-08-22] MEDS: TOBRAMYCIN 300MG/5ML INH AMPUL.NEB INH SCH ×2 (07:00→20:04)
[2023-08-22 07:14] LABS: CREATININE 0.87 mg/dL (0.55-1.30)
[2023-08-22 07:51] LABS: POTASSIUM 2.5 mmol/L (3.5-5.1)
[2023-08-22] MEDS: ASCORBIC ACID 500 MG TABLET GT SCH (08:13)
[2023-08-22] MEDS: CHOLECALCIFEROL (VITAMIN D3) 5,000 UNIT TABLET GT SCH (08:13)
[2023-08-22] MEDS: PHENYTOIN 100 MG/4 ML UDC (DILANTIN) GT SCH ×2 (08:14→21:10)
[2023-08-22] MEDS: PANTOPRAZOLE SODIUM 40 MG/VIAL (PROTONIX) IVP SCH (08:14)
[2023-08-22] MEDS: amLODIPine BESYLATE 10 MG TABLET GT SCH (08:15)
[2023-08-22] MEDS: LACOSAMIDE 100 MG TABLET GT SCH ×2 (08:29→21:17)
[2023-08-22] MEDS: CEFEPIME 2 GM in D5W 100 ML IV SCH ×2 (08:30→21:12)
[2023-08-22] MEDS: BALSAM PERU/CASTOR OIL 56.7 GM OINT...G. TP SCH (08:35)
[2023-08-22] MEDS ORDERED: POTASSIUM CHLORIDE 40 MEQ in 0.45% NS 250 ML IV ONE (08:45)
[2023-08-22] MEDS ORDERED: POTASSIUM CHLORIDE 20 MEQ/PKT PACKET PO ONE (08:45)
[2023-08-22] MEDS ORDERED: SCOPOLAMINE HYDROBROMIDE 1 MG PATCH .72 H (TRANSDERM-SCOP) TD SCH (09:00)
[2023-08-22] MEDS: ATORVASTATIN 20 MG TABLET GT SCH (21:10)
[2023-08-23] VITALS (17 sets, daily range): BP systolic 132–166; PULSE 81–101; RESP 12–18; TEMP 98–99.6; O2SAT 97–100
[2023-08-23] MEDS: IPRATROPIUM/ALBUTEROL SULFATE 3 ML AMPUL.NEB (DUONEB) INH SCH ×4 (00:26→19:35)
[2023-08-23] MEDS: 0.45% NACL 1,000 ML IV SCH ×2 (00:59→10:02)
[2023-08-23] MEDS: LevETIRAcetam 500 MG/5 ML UDC ORAL LIQUID GT SCH ×2 (01:14→13:26)
[2023-08-23] MEDS ORDERED: cloNIDine HCL 0.1 MG TABLET GT PRN (01:15)
[2023-08-23] MEDS: hydrALAZINE HCL 10 MG TABLET GT PRN (03:23)
[2023-08-23] MEDS: MENTHOL/ZINC OXIDE 113 GM OINT. TP PRN (04:38)
[2023-08-23 05:12] LABS: BASOPHILS % (AUTO) 0.4 % (0.0-2.0); EOSINOPHILS # (AUTO) 0.3 K/uL (0.0-0.4); EOSINOPHILS % (AUTO) 2.2 % (0.0-4.0); HEMOGLOBIN 9.5 g/dL (12.0-16.0); LYMPHOCYTES # (AUTO) 1.4 K/uL (1.0-5.5); LYMPHOCYTES % (AUTO) 10.8 % (20.5-51.5); MEAN CORPUSCULAR HEMOGLOBIN 28 pg (27-31); MEAN CORPUSCULAR HGB CONC 33 % (32-36); MEAN CORPUSCULAR VOLUME 87 fL (79.0-98.0); MONOCYTES # (AUTO) 0.8 K/uL (0.0-1.0); MONOCYTES % (AUTO) 6.2 % (1.7-9.3); NEUTROPHILS # (AUTO) 10.3 K/uL (1.8-7.7); NEUTROPHILS % (AUTO) 80.4 % (40.0-70.0); PLATELET COUNT (AUTO) 308 K/uL (130-430); RED BLOOD CELL COUNT(AUTO) 3.35 MIL/uL (4.2-6.2); RED CELL DISTRIBUTION WIDTH 14.5 % (9.0-15.0); WHITE BLOOD COUNT (AUTO) 12.8 K/uL (4.8-10.8)
[2023-08-23 05:35] LABS: CALCIUM 7.9 mg/dL (8.4-11.0); CREATININE 0.85 mg/dL (0.55-1.30)
[2023-08-23 05:36] LABS: POTASSIUM 2.6 mmol/L (3.5-5.1)
[2023-08-23] MEDS: VALPROIC ACID ORAL SYRUP 250 MG/5 ML UDC GT SCH ×3 (05:46→21:12)
[2023-08-23] MEDS: INSULIN LISPRO SLIDING SCALE 100 UNITS/ML, 3 ML VIAL (humaLOG) SUBCUT PRN ×4 (05:54→21:39)
[2023-08-23] MEDS ORDERED: POTASSIUM CHLORIDE 40 MEQ in 0.45% NS 250 ML IV ONE (06:00)
[2023-08-23] MEDS ORDERED: POTASSIUM CHLORIDE 20 MEQ/PKT PACKET GT ONE (06:00)
[2023-08-23] MEDS: TOBRAMYCIN 300MG/5ML INH AMPUL.NEB INH SCH ×2 (07:53→19:36)
[2023-08-23] MEDS: POTASSIUM CHLORIDE 20 mEq in 100 mL (PREMIX) 100 ML x 2 doses IV SCH ×2 (08:09→10:20)
[2023-08-23] MEDS: LACOSAMIDE 100 MG TABLET GT SCH ×2 (09:00→21:22)
[2023-08-23] MEDS: CEFEPIME 2 GM in D5W 100 ML IV SCH ×2 (10:01→21:44)
[2023-08-23] MEDS: PANTOPRAZOLE SODIUM 40 MG/VIAL (PROTONIX) IVP SCH (10:03)
[2023-08-23] MEDS: CHOLECALCIFEROL (VITAMIN D3) 5,000 UNIT TABLET GT SCH (10:03)
[2023-08-23] MEDS: PHENYTOIN 100 MG/4 ML UDC (DILANTIN) GT SCH ×2 (10:03→22:53)
[2023-08-23] MEDS: ASCORBIC ACID 500 MG TABLET GT SCH (10:03)
[2023-08-23] MEDS: amLODIPine BESYLATE 10 MG TABLET GT SCH (10:04)
[2023-08-23] MEDS: BALSAM PERU/CASTOR OIL 56.7 GM OINT...G. TP SCH (10:05)
[2023-08-23 13:43] LABS: CALCIUM 7.8 mg/dL (8.4-11.0); CREATININE 0.9 mg/dL (0.55-1.30); POTASSIUM 4.2 mmol/L (3.5-5.1)
[2023-08-23] MEDS ORDERED: MAGNESIUM SULFATE IN WATER 100 ML IV ONE (14:45)
[2023-08-23] MEDS: ATORVASTATIN 20 MG TABLET GT SCH (21:09)
[2023-08-24] MEDS ORDERED: POTASSIUM CHLORIDE 20 MEQ/PKT PACKET GT SCH (09:00)
== END 2023-08-23 23:30 | DRG 720 ==
LOC: SED 12:27 → STU 21:40
PROVIDERS: ADMIT Internal Medicine; ATTEND Internal Medicine
PROC: 5A1955Z Respiratory Ventilation, Greater than 96 Consecutive Hours (ICD-10-PCS; principal; 2023-08-17)
PROC: 30233N1 Transfusion of Nonautologous Red Blood Cells into Peripheral Vein, Percutaneous Approach (ICD-10-PCS; 2023-08-18)
DX: A41.9 Sepsis, unspecified organism (principal); N17.0 Acute kidney failure with tubular necrosis; E43 Unspecified severe protein-calorie malnutrition; J96.10 Chronic respiratory failure, unspecified whether with hypoxia or hypercapnia; R47.01 Aphasia; D64.9 Anemia, unspecified; E11.9 Type 2 diabetes mellitus without complications; Z99.11 Dependence on respirator [ventilator] status; Z93.0 Tracheostomy status; N39.0 Urinary tract infection, site not specified; G40.909 Epilepsy, unspecified, not intractable, without status epilepticus; S31.000A Unspecified open wound of lower back and pelvis without penetration into retroperitoneum, initial encounter; X58.XXXA Exposure to other specified factors, initial encounter; E86.0 Dehydration; D72.829 Elevated white blood cell count, unspecified; F03.90 Unspecified dementia, unspecified severity, without behavioral disturbance, psychotic disturbance, mood disturbance, and anxiety; I10 Essential (primary) hypertension; R13.10 Dysphagia, unspecified; K21.9 Gastro-esophageal reflux disease without esophagitis; Z20.822 Contact with and (suspected) exposure to COVID-19; E78.5 Hyperlipidemia, unspecified; Z79.1 Long term (current) use of non-steroidal anti-inflammatories (NSAID); Z79.899 Other long term (current) drug therapy; Y93.89 Activity, other specified; Y92.89 Other specified places as the place of occurrence of the external cause; Y99.8 Other external cause status; Z86.73 Personal history of transient ischemic attack (TIA), and cerebral infarction without residual deficits; Z87.11 Personal history of peptic ulcer disease; Z93.1 Gastrostomy status
CPT/HCPCS: 36415; 71045; 80048; 80053; 81000; 81001; 81015; 82150; 82272; 82607; 82728; 82746; 82962; 83010; 83540; 83550; 83605; 83690; 83735; 84132; 85025; 85044; 85610-TC; 85730-TC; 86886; 86900; 86901; 86920; 87040; 87070-TC; 87081; 87086; 87205-TC; 94003; 94640; 94760; 96365; 96367; 99285; C9113; G0378; J0692; J0696; J3260; J3475; J3480; J7040; J7050; J7060; P9021

== ENCOUNTER 2023-09-24 04:52 | Inpatient (IN) | payer MEDICAID ==
[2023-09-24] VITALS (9 sets, daily range): BP systolic 113–161; PULSE 70–87; RESP 12–22; TEMP 98.8–100.7; O2SAT 100
[~2023-09-24] VITALS: Ht 152.4 cm; Wt 63.5 kg
[~2023-09-24 04:52] MED LIST changes: +ALBU2.5V7 NEB; +AMIN30LI45 PEG; +AMLO10TA88 PEG; +AMPH20TA PEG; -ASA81 PO; +ASCO500L4 PEG; +ASPI-524 PEG; +ATOR40TA68 PEG; +CHLO473M12 PO; +CHOL50006 PEG; -CLOP75TA32 PO; +HYDR-3919 PEG; +INSU100V; -INSU200I SQ; +LACO10SO12 PEG; -LACO200T2 GT; -LEVE1000 PO; +LEVE100S PEG; -LIP40 PO; +LISI20TA PEG; -METO-442 PO; -MODA200T48 PO; -NOR10 PO; +PANT40GR PEG; +SCOP1PAT TD; +THOR25 PEG; +ZINC50TA2 PEG; +[UNRECOGNIZED DRUG - CODE] PEG
[2023-09-24] MEDS ORDERED: NACL 0.9% 2,000 ML IV ONE (05:15)
[2023-09-24] MEDS ORDERED: PIPERACILLIN/TAZO 3.375 GM in NS 50 ML IV ONE (05:15)
[2023-09-24 05:59] LABS: EOSINOPHILS % (AUTO) 0.1 % (0.0-4.0); MONOCYTES # (AUTO) 1.1 K/uL (0.0-1.0); MONOCYTES % (AUTO) 5.9 % (1.7-9.3); WHITE BLOOD COUNT (AUTO) 18.7 K/uL (4.8-10.8)
[2023-09-24] MEDS ORDERED: PIPERACILLIN/TAZOBACTAM 3.375 GM/VIAL (ZOSYN) IV ONE (06:04)
[2023-09-24] MEDS ORDERED: ACETAMINOPHEN 650 MG SUPP.RECT RC ONE (06:15)
[2023-09-24 06:35] LABS: ANION GAP 9 (5-15); CALCIUM 9.4 mg/dL (8.4-11.0); CARBON DIOXIDE 30 mmol/L (23-29); CHLORIDE 103 mmol/L (98-107); CREATININE 1.02 mg/dL (0.55-1.30); GFR AFRICAN AMERICAN 71 mL/min (>90); GLUCOSE 159 mg/dL (74-106); POTASSIUM 3.9 mmol/L (3.5-5.1); PROTHROMBIN TIME 10.1 SECS (9.5-12.5); SODIUM SERUM 142 mmol/L (136-145); UREA NITROGEN, BLOOD 75 mg/dL (8-21)
[2023-09-24 06:36] LABS: GFR NON AFRICAN-AMERICAN 58 mL/min (>90)
[2023-09-24 06:39] LABS: ALANINE AMINOTRANSFERASE 35 U/L (12-78); ALBUMIN 0.7 g/dL (3.4-4.8); ASPARTATE AMINOTRANSFERASE 92 U/L (10-37); BASOPHILS # (AUTO) 0.1 K/uL (0.0-0.2); BASOPHILS % (AUTO) 0.5 % (0.0-2.0); BILIRUBIN,DIRECT 0.1 mg/dL (0.0-0.3); LYMPHOCYTES # (AUTO) 2.1 K/uL (1.0-5.5); LYMPHOCYTES % (AUTO) 11.2 % (20.5-51.5); MEAN CORPUSCULAR HEMOGLOBIN 28 pg (27-31); MEAN CORPUSCULAR HGB CONC 31 % (32-36); MEAN CORPUSCULAR VOLUME 91 fL (79.0-98.0); NEUTROPHILS # (AUTO) 15.4 K/uL (1.8-7.7); NEUTROPHILS % (AUTO) 82.3 % (40.0-70.0); PLATELET COUNT (AUTO) 405 K/uL (130-430); RED BLOOD CELL COUNT(AUTO) 2.03 MIL/uL (4.2-6.2); TOTAL BILIRUBIN 0.2 mg/dL (0.0-1.0); TOTAL PROTEIN, SERUM 7.1 g/dL (6.4-8.3)
[2023-09-24 07:08] LABS: INFLUENZA TYPE A Negative (NEGATIVE); INFLUENZA TYPE B NEGATIVE (NEGATIVE)
[2023-09-24 07:12] LABS: HEMATOCRIT 18.4 % (36-48); HEMOGLOBIN 5.8 g/dL (12.0-16.0)
[2023-09-24 07:33] LABS: BILIRUBIN,URINE NEGATIVE (NEGATIVE); CLARITY/URINE TURBID (CLEAR); COLOR,URINE YELLOW (YELLOW); GLUCOSE,URINE NEGATIVE (NEGATIVE); KETONES,URINE NEGATIVE (NEGATIVE); LEUKOCYTE ESTERASE ,URINE 1+ (NEGATIVE); NITRITE, URINE NEGATIVE (NEGATIVE); PH,URINE 8.5 (5.0-8.0); PROTEIN URINE 3+ (NEGATIVE); UROBILINOGEN,URINE 0.2 (0.2-1.0)
[2023-09-24 07:35] LABS: BLOOD, URINE TRACE (NEGATIVE)
[2023-09-24 07:44] LABS: BACTERIA,URINE MANY /HPF (None Seen); WBC,URINE >100 /HPF (0-3)
[2023-09-24 07:45] LABS: MUCUS,URINE 2+ /LPF (None Seen); OTHER CASTS, URINE WBC CASTS 2+ /LPF (None Seen)
[2023-09-24] MEDS ORDERED: MAGN400T10 GT (07:53)
[2023-09-24] MEDS ORDERED: EPOE4000 IJ (07:53)
[2023-09-24] MEDS ORDERED: MULT9LIQ6 GT (07:53)
[2023-09-24] MEDS ORDERED: ACET325T53 GT (07:53)
[2023-09-24] MEDS ORDERED: CARV12.548 GT (07:53)
[2023-09-24] MEDS ORDERED: FER300L GT (07:53)
[2023-09-24] MEDS ORDERED: POTA20LI25 GT (10:07)
[2023-09-24] MEDS ORDERED: HYDROcodone/ACETAMIN 5-325 MG TAB (NORCO/ VICODIN) GT PRN (12:45)
[2023-09-24] MEDS ORDERED: ACETAMINOPHEN 325 MG TABLET GT PRN (12:45)
[2023-09-24] MEDS ORDERED: NALOXONE HCL 0.4 MG/ML AMP (NARCAN) IVP PRN (12:45)
[2023-09-24] MEDS ORDERED: ALBUTEROL SULFATE 0.083% 2.5 MG/3 ML VIAL.NEB INH PRN (12:45)
[2023-09-24] MEDS: ALBUTEROL SULFATE 0.083% 2.5 MG/3 ML VIAL.NEB INH SCH ×2 (13:00→19:38)
[2023-09-24] MEDS ORDERED: hydrALAZINE HCL 10 MG TABLET GT PRN (13:15)
[2023-09-24] MEDS ORDERED: THORAZINE (chlorproMAZINE) 25 MG TAB GT ONE (14:00)
[2023-09-24] MEDS ORDERED: CHOLECALCIFEROL (VITAMIN D3) 5,000 UNIT TABLET GT ONE (14:00)
[2023-09-24] MEDS ORDERED: MAGNESIUM OXIDE 400 MG TABLET GT ONE (14:00)
[2023-09-24] MEDS ORDERED: LANSOPRAZOLE 30 MG CAPSULE.DR GT ONE (14:00)
[2023-09-24] MEDS: POTASSIUM CHLORIDE 10 MEQ in NACL 0.9% 1,000 ML IV SCH (14:00)
[2023-09-24] MEDS ORDERED: POTASSIUM CHLORIDE 20 MEQ/PKT PACKET GT ONE (14:00)
[2023-09-24] MEDS ORDERED: FERROUS SULFATE 300 MG/5 ML UDC GT ONE (14:00)
[2023-09-24] MEDS ORDERED: PHENYTOIN 100 MG/4 ML UDC (DILANTIN) GT ONE (14:00)
[2023-09-24] MEDS ORDERED: MULTIVITS,CA,MINERALS/IRON/FA 1 TABLET GT ONE (14:00)
[2023-09-24] MEDS ORDERED: amLODIPine BESYLATE 10 MG TABLET GT ONE (14:00)
[2023-09-24] MEDS ORDERED: ASCORBIC ACID 500 MG TABLET GT ONE (14:00)
[2023-09-24] MEDS ORDERED: LevETIRAcetam 500 MG/5 ML UDC ORAL LIQUID GT ONE (14:00)
[2023-09-24] MEDS ORDERED: lisinopriL 20 MG TABLET GT ONE (14:00)
[2023-09-24] MEDS ORDERED: LACOSAMIDE 100 MG TABLET GT ONE (14:00)
[2023-09-24] MEDS ORDERED: hydrALAZINE HCL 10 MG TABLET GT SCH (15:00)
[2023-09-24] MEDS: PIPERACILLIN/TAZO 3.375/DEX-IS 50 ML IV SCH ×2 (15:30→20:53)
[2023-09-24] MEDS: SCOPOLAMINE HYDROBROMIDE 1 MG PATCH .72 H (TRANSDERM-SCOP) TD SCH (15:33)
[2023-09-24] MEDS: VALPROIC ACID ORAL SYRUP 250 MG/5 ML UDC GT SCH ×2 (15:33→21:42)
[2023-09-24 20:30] LABS: HEMATOCRIT 28.3 % (36-48); MEAN CORPUSCULAR HEMOGLOBIN 28 pg (27-31); MEAN CORPUSCULAR HGB CONC 32 % (32-36); PLATELET COUNT (AUTO) 310 K/uL (130-430); RED BLOOD CELL COUNT(AUTO) 3.18 MIL/uL (4.2-6.2); RED CELL DISTRIBUTION WIDTH 14.4 % (9.0-15.0); WHITE BLOOD COUNT (AUTO) 20.3 K/uL (4.8-10.8)
[2023-09-24 20:33] LABS: MEAN CORPUSCULAR VOLUME 89 fL (79.0-98.0)
[2023-09-24 20:43] LABS: ANISOCYTOSIS 1+; BAND % (MANUAL) 6 % (0-6); BASOPHILS % (MANUAL) 0 % (0-2); EOSINOPHILS % (MANUAL) 0 % (0-7); LYMPHOCYTES % (MANUAL) 9 % (20-46); MONOCYTES % (MANUAL) 8 % (0-11); PLATELET ESTIMATE ADEQUATE (ADEQUATE)
[2023-09-24] MEDS: CHLORHEXIDINE GLUC 0.12% 15 ML MOUTHWASH UDC MM SCH (21:41)
[2023-09-24] MEDS: ATORVASTATIN 20 MG TABLET GT SCH (21:42)
[2023-09-24] MEDS: LACOSAMIDE 100 MG TABLET GT SCH (21:43)
[2023-09-24] MEDS: FERROUS SULFATE 300 MG/5 ML UDC GT SCH (21:44)
[2023-09-24] MEDS: PHENYTOIN 100 MG/4 ML UDC (DILANTIN) GT SCH (21:48)
[2023-09-24] MEDS: MAGNESIUM OXIDE 400 MG TABLET GT SCH (21:48)
[2023-09-24] MEDS: POTASSIUM CHLORIDE 20 MEQ/PKT PACKET GT SCH (21:50)
[2023-09-24] MEDS: CARVEDILOL 12.5 MG TABLET (COREG) GT SCH (21:54)
[2023-09-24] MEDS: INSULIN GLARGINE 100 UNITS/ML, 10 ML VIAL SQ SCH (23:01)
[2023-09-24] MEDS: LevETIRAcetam 500 MG/5 ML UDC ORAL LIQUID GT SCH (23:07)
[2023-09-24] MEDS ORDERED: D5W 1,000 ML IV PRN (23:45)
[2023-09-24] MEDS ORDERED: DEXTROSE 50% JECT 50 ML DISP.SYRIN IVP PRN (23:45)
[2023-09-24] MEDS ORDERED: GLUCOSE (DEXTROSE) ORAL GEL -Adults PO PRN (23:45)
[2023-09-25] VITALS (19 sets, daily range): BP systolic 135–149; PULSE 63–77; RESP 13–16; TEMP 97–98; O2SAT 1–100
[2023-09-25] MEDS: ALBUTEROL SULFATE 0.083% 2.5 MG/3 ML VIAL.NEB INH SCH ×4 (01:49→19:44)
[2023-09-25] MEDS: POTASSIUM CHLORIDE 10 MEQ in NACL 0.9% 1,000 ML IV SCH (02:50)
[2023-09-25] MEDS: PIPERACILLIN/TAZO 3.375/DEX-IS 50 ML IV SCH ×4 (02:51→22:31)
[2023-09-25] MEDS: VALPROIC ACID ORAL SYRUP 250 MG/5 ML UDC GT SCH ×3 (06:04→22:32)
[2023-09-25] MEDS: LANSOPRAZOLE 30 MG CAPSULE.DR GT SCH (06:50)
[2023-09-25 07:22] LABS: BASOPHILS # (AUTO) 0.1 K/uL (0.0-0.2); BASOPHILS % (AUTO) 0.4 % (0.0-2.0); EOSINOPHILS % (AUTO) 0.1 % (0.0-4.0); HEMATOCRIT 28.6 % (36-48); HEMOGLOBIN 9.1 g/dL (12.0-16.0); LYMPHOCYTES # (AUTO) 1.7 K/uL (1.0-5.5); LYMPHOCYTES % (AUTO) 8.8 % (20.5-51.5); MEAN CORPUSCULAR HEMOGLOBIN 29 pg (27-31); MEAN CORPUSCULAR HGB CONC 32 % (32-36); MEAN CORPUSCULAR VOLUME 90 fL (79.0-98.0); MONOCYTES # (AUTO) 1.1 K/uL (0.0-1.0); MONOCYTES % (AUTO) 5.9 % (1.7-9.3); NEUTROPHILS # (AUTO) 16.3 K/uL (1.8-7.7); NEUTROPHILS % (AUTO) 84.8 % (40.0-70.0); PLATELET COUNT (AUTO) 314 K/uL (130-430); RED BLOOD CELL COUNT(AUTO) 3.18 MIL/uL (4.2-6.2); RED CELL DISTRIBUTION WIDTH 14.4 % (9.0-15.0); WHITE BLOOD COUNT (AUTO) 19.1 K/uL (4.8-10.8)
[2023-09-25 08:00] LABS: CALCIUM 8.2 mg/dL (8.4-11.0); CREATININE 0.76 mg/dL (0.55-1.30); POTASSIUM 3.3 mmol/L (3.5-5.1)
[2023-09-25 08:39] LABS: ABG O2 SAT% ESTIMATE 93.2 % (94.0-100.0); BLOOD GAS BASE EXCESS 0.8 mmol/L (-3.0-3.0); BLOOD GAS HCO3 25.5 mmol/L (21.0-27.0); BLOOD GAS PCO2 41.1 mmHg (35.0-45.0); BLOOD GAS PH 7.411 (7.350-7.450); BLOOD GAS PO2 65.7 mmHg (75.0-100.0)
[2023-09-25 08:46] LABS: ALLEN'S TEST POSITIVE (P)
[2023-09-25] MEDS ORDERED: AMPHETAMINE PEG SCH (09:00)
[2023-09-25] MEDS: AMPHETAMINE GT SCH (09:00)
[2023-09-25] MEDS: MULTIVITS,CA,MINERALS/IRON/FA 1 TABLET GT SCH (09:58)
[2023-09-25] MEDS: POTASSIUM CHLORIDE 20 MEQ/PKT PACKET GT SCH ×2 (09:58→22:33)
[2023-09-25] MEDS: FERROUS SULFATE 300 MG/5 ML UDC GT SCH ×2 (10:00→22:33)
[2023-09-25] MEDS: CHOLECALCIFEROL (VITAMIN D3) 5,000 UNIT TABLET GT SCH (10:00)
[2023-09-25] MEDS: ASCORBIC ACID 500 MG TABLET GT SCH (10:00)
[2023-09-25] MEDS: CARVEDILOL 12.5 MG TABLET (COREG) GT SCH ×2 (10:01→22:32)
[2023-09-25] MEDS: lisinopriL 20 MG TABLET GT SCH (10:02)
[2023-09-25] MEDS: PHENYTOIN 100 MG/4 ML UDC (DILANTIN) GT SCH ×2 (10:04→22:38)
[2023-09-25] MEDS: THORAZINE (chlorproMAZINE) 25 MG TAB GT SCH (10:05)
[2023-09-25] MEDS: amLODIPine BESYLATE 10 MG TABLET GT SCH (10:05)
[2023-09-25] MEDS: MAGNESIUM OXIDE 400 MG TABLET GT SCH ×2 (10:07→22:33)
[2023-09-25] MEDS: INSULIN GLARGINE 100 UNITS/ML, 10 ML VIAL SQ SCH ×2 (10:26→22:41)
[2023-09-25] MEDS: CHLORHEXIDINE GLUC 0.12% 15 ML MOUTHWASH UDC MM SCH ×2 (11:11→22:34)
[2023-09-25] MEDS: LACOSAMIDE 100 MG TABLET GT SCH ×2 (11:11→22:38)
[2023-09-25] MEDS: KCL 20 mEq in D5/0.45NS 1000mL 1,000 ML IV SCH (12:04)
[2023-09-25] MEDS: LevETIRAcetam 500 MG/5 ML UDC ORAL LIQUID GT SCH (12:05)
[2023-09-25] MEDS: INSULIN LISPRO SLIDING SCALE 100 UNITS/ML, 3 ML VIAL (humaLOG) SUBCUT PRN ×2 (12:13→18:07)
[2023-09-25] MEDS: ATORVASTATIN 20 MG TABLET GT SCH (22:33)
[2023-09-26] VITALS (19 sets, daily range): BP systolic 125–185; PULSE 65–84; RESP 15–18; TEMP 96.3–98.7; O2SAT 98–100
[2023-09-26] MEDS: LevETIRAcetam 500 MG/5 ML UDC ORAL LIQUID GT SCH ×3 (00:14→23:45)
[2023-09-26] MEDS: KCL 20 mEq in D5/0.45NS 1000mL 1,000 ML IV SCH ×2 (00:20→14:49)
[2023-09-26] MEDS: INSULIN LISPRO SLIDING SCALE 100 UNITS/ML, 3 ML VIAL (humaLOG) SUBCUT PRN ×4 (00:37→18:04)
[2023-09-26] MEDS: ALBUTEROL SULFATE 0.083% 2.5 MG/3 ML VIAL.NEB INH SCH ×4 (01:34→19:33)
[2023-09-26] MEDS: PIPERACILLIN/TAZO 3.375/DEX-IS 50 ML IV SCH ×4 (02:20→20:57)
[2023-09-26] MEDS: VALPROIC ACID ORAL SYRUP 250 MG/5 ML UDC GT SCH ×3 (06:24→22:17)
[2023-09-26] MEDS: LANSOPRAZOLE 30 MG CAPSULE.DR GT SCH (06:24)
[2023-09-26 06:28] LABS: BASOPHILS # (AUTO) 0.1 K/uL (0.0-0.2); BASOPHILS % (AUTO) 0.3 % (0.0-2.0); EOSINOPHILS % (AUTO) 0.3 % (0.0-4.0); HEMATOCRIT 30.3 % (36-48); HEMOGLOBIN 9.7 g/dL (12.0-16.0); LYMPHOCYTES # (AUTO) 1.3 K/uL (1.0-5.5); LYMPHOCYTES % (AUTO) 8.6 % (20.5-51.5); MEAN CORPUSCULAR HEMOGLOBIN 29 pg (27-31); MEAN CORPUSCULAR HGB CONC 32 % (32-36); MEAN CORPUSCULAR VOLUME 90 fL (79.0-98.0); MONOCYTES # (AUTO) 0.8 K/uL (0.0-1.0); MONOCYTES % (AUTO) 5.6 % (1.7-9.3); NEUTROPHILS # (AUTO) 12.9 K/uL (1.8-7.7); NEUTROPHILS % (AUTO) 85.2 % (40.0-70.0); PLATELET COUNT (AUTO) 334 K/uL (130-430); RED BLOOD CELL COUNT(AUTO) 3.39 MIL/uL (4.2-6.2); RED CELL DISTRIBUTION WIDTH 14.7 % (9.0-15.0); RETICULOCYTE COUNT 1.7 % (0.5-1.5); WHITE BLOOD COUNT (AUTO) 15.1 K/uL (4.8-10.8)
[2023-09-26 07:09] LABS: CALCIUM 8.8 mg/dL (8.4-11.0); CREATININE 0.71 mg/dL (0.55-1.30)
[2023-09-26 07:15] LABS: TOTAL IRON BIND. CAPACITY 100 ug/dL (250-450)
[2023-09-26] MEDS: AMPHETAMINE GT SCH (09:00)
[2023-09-26] MEDS: CHOLECALCIFEROL (VITAMIN D3) 5,000 UNIT TABLET GT SCH (09:49)
[2023-09-26] MEDS: PHENYTOIN 100 MG/4 ML UDC (DILANTIN) GT SCH ×2 (09:49→20:58)
[2023-09-26] MEDS: FERROUS SULFATE 300 MG/5 ML UDC GT SCH ×2 (09:49→20:58)
[2023-09-26] MEDS: amLODIPine BESYLATE 10 MG TABLET GT SCH (09:50)
[2023-09-26] MEDS: MULTIVITS,CA,MINERALS/IRON/FA 1 TABLET GT SCH (09:51)
[2023-09-26] MEDS: CARVEDILOL 12.5 MG TABLET (COREG) GT SCH ×2 (09:51→21:04)
[2023-09-26] MEDS: ASCORBIC ACID 500 MG TABLET GT SCH (09:51)
[2023-09-26] MEDS: LACOSAMIDE 100 MG TABLET GT SCH ×2 (09:51→23:33)
[2023-09-26] MEDS: MAGNESIUM OXIDE 400 MG TABLET GT SCH ×2 (09:52→21:00)
[2023-09-26] MEDS: lisinopriL 20 MG TABLET GT SCH (09:52)
[2023-09-26] MEDS: POTASSIUM CHLORIDE 20 MEQ/PKT PACKET GT SCH ×2 (09:52→20:59)
[2023-09-26] MEDS: THORAZINE (chlorproMAZINE) 25 MG TAB GT SCH (09:52)
[2023-09-26] MEDS ORDERED: FLUCONAZOLE 100 mg/ NS 50 ML IV SCH (10:15)
[2023-09-26] MEDS: INSULIN GLARGINE 100 UNITS/ML, 10 ML VIAL SQ SCH ×2 (10:30→21:25)
[2023-09-26] MEDS: CHLORHEXIDINE GLUC 0.12% 15 ML MOUTHWASH UDC MM SCH ×2 (10:33→22:04)
[2023-09-26] MEDS: FLUCONAZOLE 200 mg/ NS 100 ML IV SCH (12:37)
[2023-09-26] MEDS: POTASSIUM CHLORIDE 20 MEQ/PKT PACKET PO SCH ×2 (18:22→23:39)
[2023-09-26] MEDS: ATORVASTATIN 20 MG TABLET GT SCH (21:01)
[2023-09-26] MEDS: MUPIROCIN 2% TOPICAL OINTMENT 22 GM NS SCH (22:05)
[2023-09-27] VITALS (19 sets, daily range): BP systolic 130–178; PULSE 66–90; RESP 14–22; TEMP 97.7–98.7; O2SAT 97–100
[2023-09-27] MEDS: INSULIN LISPRO SLIDING SCALE 100 UNITS/ML, 3 ML VIAL (humaLOG) SUBCUT PRN ×4 (00:01→18:23)
[2023-09-27] MEDS: KCL 20 mEq in D5/0.45NS 1000mL 1,000 ML IV SCH ×2 (03:00→16:20)
[2023-09-27] MEDS: ALBUTEROL SULFATE 0.083% 2.5 MG/3 ML VIAL.NEB INH SCH ×4 (05:45→19:44)
[2023-09-27] MEDS: PIPERACILLIN/TAZO 3.375/DEX-IS 50 ML IV SCH ×4 (06:10→20:32)
[2023-09-27] MEDS: VALPROIC ACID ORAL SYRUP 250 MG/5 ML UDC GT SCH ×3 (06:12→21:53)
[2023-09-27] MEDS: LANSOPRAZOLE 30 MG CAPSULE.DR GT SCH (06:45)
[2023-09-27] MEDS: AMPHETAMINE GT SCH (09:00)
[2023-09-27] MEDS: MULTIVITS,CA,MINERALS/IRON/FA 1 TABLET GT SCH (09:10)
[2023-09-27] MEDS: CHOLECALCIFEROL (VITAMIN D3) 5,000 UNIT TABLET GT SCH (09:17)
[2023-09-27] MEDS: FERROUS SULFATE 300 MG/5 ML UDC GT SCH ×2 (09:17→21:20)
[2023-09-27] MEDS: PHENYTOIN 100 MG/4 ML UDC (DILANTIN) GT SCH ×2 (09:18→21:20)
[2023-09-27] MEDS: ASCORBIC ACID 500 MG TABLET GT SCH (09:18)
[2023-09-27] MEDS: POTASSIUM CHLORIDE 20 MEQ/PKT PACKET GT SCH ×2 (09:18→21:21)
[2023-09-27] MEDS: MAGNESIUM OXIDE 400 MG TABLET GT SCH ×2 (09:18→21:21)
[2023-09-27] MEDS: THORAZINE (chlorproMAZINE) 25 MG TAB GT SCH (09:18)
[2023-09-27] MEDS: CARVEDILOL 12.5 MG TABLET (COREG) GT SCH ×2 (09:25→21:21)
[2023-09-27] MEDS: amLODIPine BESYLATE 10 MG TABLET GT SCH (09:25)
[2023-09-27] MEDS: lisinopriL 20 MG TABLET GT SCH (09:26)
[2023-09-27] MEDS: LACOSAMIDE 100 MG TABLET GT SCH ×2 (09:32→21:19)
[2023-09-27] MEDS: CHLORHEXIDINE GLUC 0.12% 15 ML MOUTHWASH UDC MM SCH ×2 (09:33→21:22)
[2023-09-27] MEDS: MUPIROCIN 2% TOPICAL OINTMENT 22 GM NS SCH ×2 (09:34→21:22)
[2023-09-27] MEDS: INSULIN GLARGINE 100 UNITS/ML, 10 ML VIAL SQ SCH ×2 (09:35→21:47)
[2023-09-27 10:07] LABS: FOLATE (FOLIC ACID) 12.9 ng/mL (>3.0)
[2023-09-27] MEDS ORDERED: VANCOMYCIN HCL 1.25 GM/NS 250 ML IV ONE (12:00)
[2023-09-27] MEDS: FLUCONAZOLE 200 mg/ NS 100 ML IV SCH (12:15)
[2023-09-27] MEDS: LevETIRAcetam 500 MG/5 ML UDC ORAL LIQUID GT SCH (12:17)
[2023-09-27] MEDS: SCOPOLAMINE HYDROBROMIDE 1 MG PATCH .72 H (TRANSDERM-SCOP) TD SCH (15:15)
[2023-09-27] MEDS ORDERED: MENTHOL/ZINC OXIDE 113 GM OINT. TP PRN (18:00)
[2023-09-27] MEDS ORDERED: MUPIROCIN 1 GM OIN.PF.APP NS SCH (21:00)
[2023-09-27] MEDS: ATORVASTATIN 20 MG TABLET GT SCH (21:20)
[2023-09-28] VITALS (18 sets, daily range): BP systolic 134–164; PULSE 81–94; RESP 16; TEMP 97.2–98.4; O2SAT 99–100
[2023-09-28] MEDS: LevETIRAcetam 500 MG/5 ML UDC ORAL LIQUID GT SCH ×2 (00:40→15:40)
[2023-09-28] MEDS: INSULIN LISPRO SLIDING SCALE 100 UNITS/ML, 3 ML VIAL (humaLOG) SUBCUT PRN ×4 (01:26→17:59)
[2023-09-28] MEDS: PIPERACILLIN/TAZO 3.375/DEX-IS 50 ML IV SCH ×4 (01:33→22:39)
[2023-09-28] MEDS: ALBUTEROL SULFATE 0.083% 2.5 MG/3 ML VIAL.NEB INH SCH ×4 (02:12→19:38)
[2023-09-28] MEDS: VALPROIC ACID ORAL SYRUP 250 MG/5 ML UDC GT SCH ×3 (06:04→22:52)
[2023-09-28] MEDS: KCL 20 mEq in D5/0.45NS 1000mL 1,000 ML IV SCH (06:13)
[2023-09-28] MEDS: LANSOPRAZOLE 30 MG CAPSULE.DR GT SCH (07:22)
[2023-09-28] MEDS: PHENYTOIN 100 MG/4 ML UDC (DILANTIN) GT SCH ×3 (08:32→22:52)
[2023-09-28] MEDS: THORAZINE (chlorproMAZINE) 25 MG TAB GT SCH (08:36)
[2023-09-28] MEDS: FERROUS SULFATE 300 MG/5 ML UDC GT SCH ×2 (08:36→22:50)
[2023-09-28] MEDS: POTASSIUM CHLORIDE 20 MEQ/PKT PACKET GT SCH ×2 (08:37→22:51)
[2023-09-28] MEDS: amLODIPine BESYLATE 10 MG TABLET GT SCH (08:37)
[2023-09-28] MEDS: CARVEDILOL 12.5 MG TABLET (COREG) GT SCH ×2 (08:38→22:41)
[2023-09-28] MEDS: ASCORBIC ACID 500 MG TABLET GT SCH (08:38)
[2023-09-28] MEDS: MULTIVITS,CA,MINERALS/IRON/FA 1 TABLET GT SCH (08:38)
[2023-09-28] MEDS: CHOLECALCIFEROL (VITAMIN D3) 5,000 UNIT TABLET GT SCH (08:38)
[2023-09-28] MEDS: lisinopriL 20 MG TABLET GT SCH (08:39)
[2023-09-28] MEDS: AMPHETAMINE GT SCH (09:00)
[2023-09-28] MEDS: INSULIN GLARGINE 100 UNITS/ML, 10 ML VIAL SQ SCH ×2 (09:03→22:59)
[2023-09-28] MEDS: BALSAM PERU/CASTOR OIL 56.7 GM OINT...G. TP SCH (09:04)
[2023-09-28] MEDS: CHLORHEXIDINE GLUC 0.12% 15 ML MOUTHWASH UDC MM SCH ×2 (09:05→22:50)
[2023-09-28] MEDS: MAGNESIUM OXIDE 400 MG TABLET GT SCH ×2 (09:12→22:50)
[2023-09-28] MEDS: LACOSAMIDE 100 MG TABLET GT SCH ×2 (09:12→22:49)
[2023-09-28] MEDS: FLUCONAZOLE 200 mg/ NS 100 ML IV SCH (12:29)
[2023-09-28] MEDS: MUPIROCIN 2% TOPICAL OINTMENT 22 GM NS SCH ×2 (12:30→22:53)
[2023-09-28] MEDS: ATORVASTATIN 20 MG TABLET GT SCH (22:49)
[2023-09-29] VITALS (14 sets, daily range): BP systolic 122–164; PULSE 78–96; RESP 14–18; TEMP 97.4–98.8; O2SAT 98–100
[2023-09-29] MEDS: LevETIRAcetam 500 MG/5 ML UDC ORAL LIQUID GT SCH ×3 (00:13→23:16)
[2023-09-29] MEDS: INSULIN LISPRO SLIDING SCALE 100 UNITS/ML, 3 ML VIAL (humaLOG) SUBCUT PRN ×4 (00:15→23:25)
[2023-09-29] MEDS: ALBUTEROL SULFATE 0.083% 2.5 MG/3 ML VIAL.NEB INH SCH ×4 (01:30→19:55)
[2023-09-29] MEDS: PIPERACILLIN/TAZO 3.375/DEX-IS 50 ML IV SCH ×4 (03:09→21:45)
[2023-09-29 06:02] LABS: BASOPHILS # (AUTO) 0.1 K/uL (0.0-0.2); BASOPHILS % (AUTO) 0.5 % (0.0-2.0); EOSINOPHILS # (AUTO) 0.1 K/uL (0.0-0.4); EOSINOPHILS % (AUTO) 0.5 % (0.0-4.0); HEMATOCRIT 27.5 % (36-48); HEMOGLOBIN 8.8 g/dL (12.0-16.0); LYMPHOCYTES # (AUTO) 2.1 K/uL (1.0-5.5); LYMPHOCYTES % (AUTO) 15.6 % (20.5-51.5); MEAN CORPUSCULAR HEMOGLOBIN 29 pg (27-31); MEAN CORPUSCULAR HGB CONC 32 % (32-36); MEAN CORPUSCULAR VOLUME 90 fL (79.0-98.0); MONOCYTES # (AUTO) 1.2 K/uL (0.0-1.0); MONOCYTES % (AUTO) 8.7 % (1.7-9.3); NEUTROPHILS # (AUTO) 9.9 K/uL (1.8-7.7); NEUTROPHILS % (AUTO) 74.7 % (40.0-70.0); PLATELET COUNT (AUTO) 318 K/uL (130-430); RED BLOOD CELL COUNT(AUTO) 3.05 MIL/uL (4.2-6.2); RED CELL DISTRIBUTION WIDTH 14.9 % (9.0-15.0); WHITE BLOOD COUNT (AUTO) 13.3 K/uL (4.8-10.8)
[2023-09-29] MEDS: LANSOPRAZOLE 30 MG CAPSULE.DR GT SCH (06:34)
[2023-09-29] MEDS: VALPROIC ACID ORAL SYRUP 250 MG/5 ML UDC GT SCH ×3 (06:35→21:52)
[2023-09-29] MEDS: AMPHETAMINE GT SCH (09:00)
[2023-09-29] MEDS: MAGNESIUM OXIDE 400 MG TABLET GT SCH ×2 (10:05→21:46)
[2023-09-29] MEDS: THORAZINE (chlorproMAZINE) 25 MG TAB GT SCH (10:05)
[2023-09-29] MEDS: PHENYTOIN 100 MG/4 ML UDC (DILANTIN) GT SCH ×2 (10:05→21:47)
[2023-09-29] MEDS: MULTIVITS,CA,MINERALS/IRON/FA 1 TABLET GT SCH (10:06)
[2023-09-29] MEDS: FERROUS SULFATE 300 MG/5 ML UDC GT SCH ×2 (10:06→21:47)
[2023-09-29] MEDS: LACOSAMIDE 100 MG TABLET GT SCH ×2 (10:06→21:00)
[2023-09-29] MEDS: CARVEDILOL 12.5 MG TABLET (COREG) GT SCH ×2 (10:07→21:48)
[2023-09-29] MEDS: CHOLECALCIFEROL (VITAMIN D3) 5,000 UNIT TABLET GT SCH (10:07)
[2023-09-29] MEDS: ASCORBIC ACID 500 MG TABLET GT SCH (10:08)
[2023-09-29] MEDS: amLODIPine BESYLATE 10 MG TABLET GT SCH (10:08)
[2023-09-29] MEDS: lisinopriL 20 MG TABLET GT SCH (10:09)
[2023-09-29] MEDS: POTASSIUM CHLORIDE 20 MEQ/PKT PACKET GT SCH ×2 (10:09→21:47)
[2023-09-29] MEDS: BALSAM PERU/CASTOR OIL 56.7 GM OINT...G. TP SCH (10:10)
[2023-09-29] MEDS: MUPIROCIN 2% TOPICAL OINTMENT 22 GM NS SCH ×2 (10:10→21:48)
[2023-09-29] MEDS: INSULIN GLARGINE 100 UNITS/ML, 10 ML VIAL SQ SCH ×2 (10:16→23:25)
[2023-09-29] MEDS: CHLORHEXIDINE GLUC 0.12% 15 ML MOUTHWASH UDC MM SCH ×2 (10:24→21:46)
[2023-09-29] MEDS: FLUCONAZOLE 200 mg/ NS 100 ML IV SCH (12:13)
[2023-09-29] MEDS: KCL 20 mEq in D5/0.45NS 1000mL 1,000 ML IV SCH ×2 (16:48→21:49)
[2023-09-29] MEDS: ATORVASTATIN 20 MG TABLET GT SCH (21:48)
[2023-09-30] VITALS (17 sets, daily range): BP systolic 142–159; PULSE 76–84; RESP 14–24; TEMP 97.1–98.4; O2SAT 97–100
[2023-09-30] MEDS: ALBUTEROL SULFATE 0.083% 2.5 MG/3 ML VIAL.NEB INH SCH ×4 (00:13→19:47)
[2023-09-30] MEDS: PIPERACILLIN/TAZO 3.375/DEX-IS 50 ML IV SCH ×2 (04:08→09:06)
[2023-09-30] MEDS: VALPROIC ACID ORAL SYRUP 250 MG/5 ML UDC GT SCH ×3 (05:12→22:02)
[2023-09-30] MEDS: INSULIN LISPRO SLIDING SCALE 100 UNITS/ML, 3 ML VIAL (humaLOG) SUBCUT PRN ×3 (05:14→17:32)
[2023-09-30 06:19] LABS: BASOPHILS # (AUTO) 0.1 K/uL (0.0-0.2); BASOPHILS % (AUTO) 0.5 % (0.0-2.0); EOSINOPHILS # (AUTO) 0.1 K/uL (0.0-0.4); HEMATOCRIT 28.2 % (36-48); HEMOGLOBIN 9.2 g/dL (12.0-16.0); LYMPHOCYTES # (AUTO) 1.9 K/uL (1.0-5.5); LYMPHOCYTES % (AUTO) 18.4 % (20.5-51.5); MEAN CORPUSCULAR HEMOGLOBIN 29 pg (27-31); MEAN CORPUSCULAR HGB CONC 33 % (32-36); MEAN CORPUSCULAR VOLUME 90 fL (79.0-98.0); MONOCYTES # (AUTO) 0.8 K/uL (0.0-1.0); MONOCYTES % (AUTO) 7.3 % (1.7-9.3); NEUTROPHILS # (AUTO) 7.7 K/uL (1.8-7.7); NEUTROPHILS % (AUTO) 72.8 % (40.0-70.0); PLATELET COUNT (AUTO) 289 K/uL (130-430); RED BLOOD CELL COUNT(AUTO) 3.14 MIL/uL (4.2-6.2); RED CELL DISTRIBUTION WIDTH 14.6 % (9.0-15.0); WHITE BLOOD COUNT (AUTO) 10.5 K/uL (4.8-10.8)
[2023-09-30] MEDS: LANSOPRAZOLE 30 MG CAPSULE.DR GT SCH (06:27)
[2023-09-30] MEDS: AMPHETAMINE GT SCH (09:00)
[2023-09-30] MEDS: INSULIN GLARGINE 100 UNITS/ML, 10 ML VIAL SQ SCH ×2 (09:09→23:31)
[2023-09-30] MEDS: FERROUS SULFATE 300 MG/5 ML UDC GT SCH ×2 (09:11→22:01)
[2023-09-30] MEDS: PHENYTOIN 100 MG/4 ML UDC (DILANTIN) GT SCH ×2 (09:11→22:04)
[2023-09-30] MEDS: POTASSIUM CHLORIDE 20 MEQ/PKT PACKET GT SCH ×2 (09:12→22:05)
[2023-09-30] MEDS: CHLORHEXIDINE GLUC 0.12% 15 ML MOUTHWASH UDC MM SCH ×2 (09:12→21:00)
[2023-09-30] MEDS: THORAZINE (chlorproMAZINE) 25 MG TAB GT SCH (09:13)
[2023-09-30] MEDS: MUPIROCIN 2% TOPICAL OINTMENT 22 GM NS SCH (09:13)
[2023-09-30] MEDS: CHOLECALCIFEROL (VITAMIN D3) 5,000 UNIT TABLET GT SCH (09:13)
[2023-09-30] MEDS: ASCORBIC ACID 500 MG TABLET GT SCH (09:13)
[2023-09-30] MEDS: lisinopriL 20 MG TABLET GT SCH (09:14)
[2023-09-30] MEDS: LACOSAMIDE 100 MG TABLET GT SCH (09:14)
[2023-09-30] MEDS: MAGNESIUM OXIDE 400 MG TABLET GT SCH ×2 (09:15→22:05)
[2023-09-30] MEDS: CARVEDILOL 12.5 MG TABLET (COREG) GT SCH ×2 (09:15→22:01)
[2023-09-30] MEDS: MULTIVITS,CA,MINERALS/IRON/FA 1 TABLET GT SCH (09:15)
[2023-09-30] MEDS: BALSAM PERU/CASTOR OIL 56.7 GM OINT...G. TP SCH (09:16)
[2023-09-30] MEDS: amLODIPine BESYLATE 10 MG TABLET GT SCH (09:16)
[2023-09-30] MEDS: ERTAPENEM SODIUM 1 GM in NS 50 ML IV SCH (12:02)
[2023-09-30] MEDS: FLUCONAZOLE 200 mg/ NS 100 ML IV SCH (12:03)
[2023-09-30] MEDS: LevETIRAcetam 500 MG/5 ML UDC ORAL LIQUID GT SCH ×2 (12:04→23:42)
[2023-09-30] MEDS: SCOPOLAMINE HYDROBROMIDE 1 MG PATCH .72 H (TRANSDERM-SCOP) TD SCH (14:37)
[2023-09-30] MEDS: KCL 20 mEq in D5/0.45NS 1000mL 1,000 ML IV SCH (21:19)
[2023-09-30] MEDS: ATORVASTATIN 20 MG TABLET GT SCH (22:06)
[2023-10-01] VITALS (17 sets, daily range): BP systolic 137–161; PULSE 70–90; RESP 12–18; TEMP 96.3–97.8; O2SAT 96–100
[2023-10-01] MEDS: MUPIROCIN 2% TOPICAL OINTMENT 22 GM NS SCH ×3 (00:03→22:43)
[2023-10-01] MEDS: LACOSAMIDE 100 MG TABLET GT SCH ×3 (00:33→22:50)
[2023-10-01] MEDS: ALBUTEROL SULFATE 0.083% 2.5 MG/3 ML VIAL.NEB INH SCH ×4 (00:46→19:02)
[2023-10-01] MEDS: INSULIN LISPRO SLIDING SCALE 100 UNITS/ML, 3 ML VIAL (humaLOG) SUBCUT PRN ×3 (06:25→19:13)
[2023-10-01] MEDS: VALPROIC ACID ORAL SYRUP 250 MG/5 ML UDC GT SCH ×3 (06:28→22:41)
[2023-10-01] MEDS: LANSOPRAZOLE 30 MG CAPSULE.DR GT SCH (07:00)
[2023-10-01] MEDS: AMPHETAMINE GT SCH (09:00)
[2023-10-01] MEDS: FERROUS SULFATE 300 MG/5 ML UDC GT SCH ×2 (11:37→22:40)
[2023-10-01] MEDS: POTASSIUM CHLORIDE 20 MEQ/PKT PACKET GT SCH ×2 (11:39→22:40)
[2023-10-01] MEDS: amLODIPine BESYLATE 10 MG TABLET GT SCH (11:40)
[2023-10-01] MEDS: THORAZINE (chlorproMAZINE) 25 MG TAB GT SCH (11:41)
[2023-10-01] MEDS: MULTIVITS,CA,MINERALS/IRON/FA 1 TABLET GT SCH (11:41)
[2023-10-01] MEDS: CHOLECALCIFEROL (VITAMIN D3) 5,000 UNIT TABLET GT SCH (11:41)
[2023-10-01] MEDS: ASCORBIC ACID 500 MG TABLET GT SCH (11:41)
[2023-10-01] MEDS: lisinopriL 20 MG TABLET GT SCH (11:42)
[2023-10-01] MEDS: CARVEDILOL 12.5 MG TABLET (COREG) GT SCH ×2 (11:43→22:41)
[2023-10-01] MEDS: MAGNESIUM OXIDE 400 MG TABLET GT SCH ×2 (11:44→22:40)
[2023-10-01] MEDS: PHENYTOIN 100 MG/4 ML UDC (DILANTIN) GT SCH ×2 (12:26→21:00)
[2023-10-01] MEDS: ERTAPENEM SODIUM 1 GM in NS 50 ML IV SCH (12:27)
[2023-10-01] MEDS: LevETIRAcetam 500 MG/5 ML UDC ORAL LIQUID GT SCH (12:27)
[2023-10-01] MEDS: FLUCONAZOLE 200 mg/ NS 100 ML IV SCH (12:27)
[2023-10-01] MEDS: CHLORHEXIDINE GLUC 0.12% 15 ML MOUTHWASH UDC MM SCH ×2 (12:27→22:41)
[2023-10-01] MEDS: KCL 20 mEq in D5/0.45NS 1000mL 1,000 ML IV SCH ×2 (12:28→14:20)
[2023-10-01 12:29] LABS: BASOPHILS # (AUTO) 0.1 K/uL (0.0-0.2); BASOPHILS % (AUTO) 0.6 % (0.0-2.0); EOSINOPHILS # (AUTO) 0.1 K/uL (0.0-0.4); EOSINOPHILS % (AUTO) 1.4 % (0.0-4.0); HEMATOCRIT 30.4 % (36-48); HEMOGLOBIN 9.8 g/dL (12.0-16.0); LYMPHOCYTES # (AUTO) 1.3 K/uL (1.0-5.5); LYMPHOCYTES % (AUTO) 14.2 % (20.5-51.5); MEAN CORPUSCULAR HEMOGLOBIN 29 pg (27-31); MEAN CORPUSCULAR HGB CONC 32 % (32-36); MEAN CORPUSCULAR VOLUME 89 fL (79.0-98.0); MONOCYTES # (AUTO) 0.6 K/uL (0.0-1.0); MONOCYTES % (AUTO) 6.9 % (1.7-9.3); NEUTROPHILS % (AUTO) 76.9 % (40.0-70.0); PLATELET COUNT (AUTO) 350 K/uL (130-430); RED BLOOD CELL COUNT(AUTO) 3.42 MIL/uL (4.2-6.2); RED CELL DISTRIBUTION WIDTH 14.3 % (9.0-15.0); WHITE BLOOD COUNT (AUTO) 9.1 K/uL (4.8-10.8)
[2023-10-01] MEDS: BALSAM PERU/CASTOR OIL 56.7 GM OINT...G. TP SCH (12:29)
[2023-10-01 12:39] LABS: ALANINE AMINOTRANSFERASE 47 U/L (12-78); ALBUMIN < 0.6 g/dL (3.4-4.8); ANION GAP 7 (5-15); ASPARTATE AMINOTRANSFERASE 88 U/L (10-37); CARBON DIOXIDE 25 mmol/L (23-29); CHLORIDE 102 mmol/L (98-107); CREATININE 0.58 mg/dL (0.55-1.30); GFR AFRICAN AMERICAN 135 mL/min (>90); GFR NON AFRICAN-AMERICAN 112 mL/min (>90); GLUCOSE 223 mg/dL (74-106); POTASSIUM 3.7 mmol/L (3.5-5.1); SODIUM SERUM 134 mmol/L (136-145); TOTAL BILIRUBIN 0.1 mg/dL (0.0-1.0); TOTAL PROTEIN, SERUM 6.2 g/dL (6.4-8.3); UREA NITROGEN, BLOOD 17 mg/dL (8-21)
[2023-10-01] MEDS: INSULIN GLARGINE 100 UNITS/ML, 10 ML VIAL SQ SCH (12:41)
[2023-10-01] MEDS: ATORVASTATIN 20 MG TABLET GT SCH (22:41)
[2023-10-02] VITALS (13 sets, daily range): BP systolic 107–149; PULSE 63–77; RESP 12–20; TEMP 96.4–97.7; O2SAT 93–100
[2023-10-02] MEDS: INSULIN LISPRO SLIDING SCALE 100 UNITS/ML, 3 ML VIAL (humaLOG) SUBCUT PRN ×3 (00:21→12:02)
[2023-10-02] MEDS: INSULIN GLARGINE 100 UNITS/ML, 10 ML VIAL SQ SCH ×3 (00:22→21:00)
[2023-10-02] MEDS: LevETIRAcetam 500 MG/5 ML UDC ORAL LIQUID GT SCH ×3 (00:24→23:24)
[2023-10-02] MEDS: ALBUTEROL SULFATE 0.083% 2.5 MG/3 ML VIAL.NEB INH SCH ×4 (00:25→19:58)
[2023-10-02] MEDS: KCL 20 mEq in D5/0.45NS 1000mL 1,000 ML IV SCH ×2 (04:47→17:05)
[2023-10-02] MEDS: LANSOPRAZOLE 30 MG CAPSULE.DR GT SCH (06:43)
[2023-10-02] MEDS: VALPROIC ACID ORAL SYRUP 250 MG/5 ML UDC GT SCH ×3 (06:44→22:06)
[2023-10-02] MEDS: AMPHETAMINE GT SCH (09:00)
[2023-10-02] MEDS: CHLORHEXIDINE GLUC 0.12% 15 ML MOUTHWASH UDC MM SCH ×2 (09:39→22:05)
[2023-10-02] MEDS: MAGNESIUM OXIDE 400 MG TABLET GT SCH ×2 (09:40→22:07)
[2023-10-02] MEDS: FERROUS SULFATE 300 MG/5 ML UDC GT SCH ×2 (09:40→22:06)
[2023-10-02] MEDS: POTASSIUM CHLORIDE 20 MEQ/PKT PACKET GT SCH ×2 (09:41→22:07)
[2023-10-02] MEDS: MULTIVITS,CA,MINERALS/IRON/FA 1 TABLET GT SCH (09:41)
[2023-10-02] MEDS: lisinopriL 20 MG TABLET GT SCH (09:42)
[2023-10-02] MEDS: ASCORBIC ACID 500 MG TABLET GT SCH (09:42)
[2023-10-02] MEDS: CHOLECALCIFEROL (VITAMIN D3) 5,000 UNIT TABLET GT SCH (09:43)
[2023-10-02] MEDS: CARVEDILOL 12.5 MG TABLET (COREG) GT SCH ×2 (09:43→22:06)
[2023-10-02] MEDS: amLODIPine BESYLATE 10 MG TABLET GT SCH (09:43)
[2023-10-02] MEDS: THORAZINE (chlorproMAZINE) 25 MG TAB GT SCH (09:43)
[2023-10-02] MEDS: BALSAM PERU/CASTOR OIL 56.7 GM OINT...G. TP SCH (09:47)
[2023-10-02] MEDS: MUPIROCIN 2% TOPICAL OINTMENT 22 GM NS SCH ×2 (09:48→22:08)
[2023-10-02] MEDS: PHENYTOIN 100 MG/4 ML UDC (DILANTIN) GT SCH ×2 (09:50→22:07)
[2023-10-02] MEDS: LACOSAMIDE 100 MG TABLET GT SCH ×2 (11:05→22:05)
[2023-10-02] MEDS: ERTAPENEM SODIUM 1 GM in NS 50 ML IV SCH (11:59)
[2023-10-02] MEDS: FLUCONAZOLE 200 mg/ NS 100 ML IV SCH (11:59)
[2023-10-02] MEDS: ATORVASTATIN 20 MG TABLET GT SCH (22:05)
[2023-10-03] VITALS (15 sets, daily range): BP systolic 143–166; PULSE 66–87; RESP 14–18; TEMP 97–98.4; O2SAT 99–100
[2023-10-03] MEDS: ALBUTEROL SULFATE 0.083% 2.5 MG/3 ML VIAL.NEB INH SCH ×4 (01:31→20:08)
[2023-10-03 05:58] LABS: BASOPHILS # (AUTO) 0.1 K/uL (0.0-0.2); BASOPHILS % (AUTO) 0.5 % (0.0-2.0); EOSINOPHILS # (AUTO) 0.2 K/uL (0.0-0.4); EOSINOPHILS % (AUTO) 1.8 % (0.0-4.0); HEMATOCRIT 25.4 % (36-48); HEMOGLOBIN 8.2 g/dL (12.0-16.0); LYMPHOCYTES # (AUTO) 1.8 K/uL (1.0-5.5); LYMPHOCYTES % (AUTO) 18.3 % (20.5-51.5); MEAN CORPUSCULAR HEMOGLOBIN 29 pg (27-31); MEAN CORPUSCULAR HGB CONC 32 % (32-36); MEAN CORPUSCULAR VOLUME 89 fL (79.0-98.0); MONOCYTES # (AUTO) 0.6 K/uL (0.0-1.0); MONOCYTES % (AUTO) 6.2 % (1.7-9.3); NEUTROPHILS # (AUTO) 7.2 K/uL (1.8-7.7); NEUTROPHILS % (AUTO) 73.2 % (40.0-70.0); PLATELET COUNT (AUTO) 352 K/uL (130-430); RED BLOOD CELL COUNT(AUTO) 2.86 MIL/uL (4.2-6.2); RED CELL DISTRIBUTION WIDTH 14.5 % (9.0-15.0); WHITE BLOOD COUNT (AUTO) 9.9 K/uL (4.8-10.8)
[2023-10-03] MEDS: VALPROIC ACID ORAL SYRUP 250 MG/5 ML UDC GT SCH ×3 (06:00→21:58)
[2023-10-03 06:07] LABS: CALCIUM 7.9 mg/dL (8.4-11.0); CREATININE 0.39 mg/dL (0.55-1.30); POTASSIUM 3.8 mmol/L (3.5-5.1)
[2023-10-03] MEDS: LANSOPRAZOLE 30 MG CAPSULE.DR GT SCH (06:41)
[2023-10-03] MEDS: LACOSAMIDE 100 MG TABLET GT SCH ×2 (09:00→21:00)
[2023-10-03] MEDS: CHLORHEXIDINE GLUC 0.12% 15 ML MOUTHWASH UDC MM SCH ×2 (09:00→21:29)
[2023-10-03] MEDS: POTASSIUM CHLORIDE 20 MEQ/PKT PACKET GT SCH ×2 (09:00→21:20)
[2023-10-03] MEDS: AMPHETAMINE GT SCH (09:00)
[2023-10-03] MEDS: PHENYTOIN 100 MG/4 ML UDC (DILANTIN) GT SCH ×2 (09:00→21:20)
[2023-10-03] MEDS: INSULIN GLARGINE 100 UNITS/ML, 10 ML VIAL SQ SCH ×2 (09:00→21:00)
[2023-10-03] MEDS: ASCORBIC ACID 500 MG TABLET GT SCH (09:00)
[2023-10-03] MEDS: THORAZINE (chlorproMAZINE) 25 MG TAB GT SCH (09:00)
[2023-10-03] MEDS: BALSAM PERU/CASTOR OIL 56.7 GM OINT...G. TP SCH (09:00)
[2023-10-03] MEDS: MAGNESIUM OXIDE 400 MG TABLET GT SCH ×2 (09:00→21:20)
[2023-10-03] MEDS: MUPIROCIN 2% TOPICAL OINTMENT 22 GM NS SCH (09:00)
[2023-10-03] MEDS: lisinopriL 20 MG TABLET GT SCH (09:00)
[2023-10-03] MEDS: FERROUS SULFATE 300 MG/5 ML UDC GT SCH ×2 (09:00→21:20)
[2023-10-03] MEDS: CHOLECALCIFEROL (VITAMIN D3) 5,000 UNIT TABLET GT SCH (09:00)
[2023-10-03] MEDS: amLODIPine BESYLATE 10 MG TABLET GT SCH (09:00)
[2023-10-03] MEDS: MULTIVITS,CA,MINERALS/IRON/FA 1 TABLET GT SCH (09:00)
[2023-10-03] MEDS: CARVEDILOL 12.5 MG TABLET (COREG) GT SCH ×2 (09:00→21:30)
[2023-10-03] MEDS: LevETIRAcetam 500 MG/5 ML UDC ORAL LIQUID GT SCH (12:00)
[2023-10-03] MEDS: KCL 20 mEq in D5/0.45NS 1000mL 1,000 ML IV SCH ×2 (12:17→20:19)
[2023-10-03] MEDS: ERTAPENEM SODIUM 1 GM in NS 50 ML IV SCH (12:36)
[2023-10-03] MEDS: SCOPOLAMINE HYDROBROMIDE 1 MG PATCH .72 H (TRANSDERM-SCOP) TD SCH (14:00)
[2023-10-03] MEDS ORDERED: fentaNYL CITRATE/PF 100 MCG/2 ML AMP ONE (16:58)
[2023-10-03] MEDS ORDERED: BUPIVACAINE /PF 0.25% 30 ML VIAL INJ ONE (17:05)
[2023-10-03] MEDS ORDERED: NS 1000 ML IV.SOLN IV ONE (17:05)
[2023-10-03] MEDS ORDERED: PROPOFOL 200MG/ 20ML VIAL (DIPRIVAN) IV ONE (17:05)
[2023-10-03] MEDS: ATORVASTATIN 20 MG TABLET GT SCH (21:29)
[2023-10-04] VITALS (13 sets, daily range): BP systolic 139–178; PULSE 72–85; RESP 12–18; TEMP 97.1–98.5; O2SAT 100
[2023-10-04] MEDS: KCL 20 mEq in D5/0.45NS 1000mL 1,000 ML IV SCH ×2 (03:26→18:47)
[2023-10-04] MEDS: LevETIRAcetam 500 MG/5 ML UDC ORAL LIQUID GT SCH ×3 (03:28→23:48)
[2023-10-04] MEDS: VALPROIC ACID ORAL SYRUP 250 MG/5 ML UDC GT SCH ×3 (05:10→21:07)
[2023-10-04] MEDS: INSULIN LISPRO SLIDING SCALE 100 UNITS/ML, 3 ML VIAL (humaLOG) SUBCUT PRN ×3 (05:31→18:45)
[2023-10-04] MEDS: ALBUTEROL SULFATE 0.083% 2.5 MG/3 ML VIAL.NEB INH SCH ×3 (07:29→20:06)
[2023-10-04] MEDS: LANSOPRAZOLE 30 MG CAPSULE.DR GT SCH (07:56)
[2023-10-04] MEDS: AMPHETAMINE GT SCH (09:00)
[2023-10-04] MEDS: INSULIN GLARGINE 100 UNITS/ML, 10 ML VIAL SQ SCH ×2 (09:00→21:26)
[2023-10-04] MEDS: BALSAM PERU/CASTOR OIL 56.7 GM OINT...G. TP SCH (09:00)
[2023-10-04] MEDS: MAGNESIUM OXIDE 400 MG TABLET GT SCH ×2 (10:21→20:58)
[2023-10-04] MEDS: FERROUS SULFATE 300 MG/5 ML UDC GT SCH ×2 (10:21→20:57)
[2023-10-04] MEDS: CHOLECALCIFEROL (VITAMIN D3) 5,000 UNIT TABLET GT SCH (10:22)
[2023-10-04] MEDS: ASCORBIC ACID 500 MG TABLET GT SCH (10:22)
[2023-10-04] MEDS: THORAZINE (chlorproMAZINE) 25 MG TAB GT SCH (10:23)
[2023-10-04] MEDS: PHENYTOIN 100 MG/4 ML UDC (DILANTIN) GT SCH ×2 (10:24→20:57)
[2023-10-04] MEDS: POTASSIUM CHLORIDE 20 MEQ/PKT PACKET GT SCH ×2 (10:24→20:58)
[2023-10-04] MEDS: amLODIPine BESYLATE 10 MG TABLET GT SCH (10:27)
[2023-10-04] MEDS: CARVEDILOL 12.5 MG TABLET (COREG) GT SCH ×2 (10:27→20:58)
[2023-10-04] MEDS: MULTIVITS,CA,MINERALS/IRON/FA 1 TABLET GT SCH (10:28)
[2023-10-04] MEDS: lisinopriL 20 MG TABLET GT SCH (10:28)
[2023-10-04] MEDS: LACOSAMIDE 100 MG TABLET GT SCH ×2 (10:35→20:57)
[2023-10-04] MEDS: CHLORHEXIDINE GLUC 0.12% 15 ML MOUTHWASH UDC MM SCH ×2 (10:53→21:09)
[2023-10-04] MEDS: ERTAPENEM SODIUM 1 GM in NS 50 ML IV SCH (13:12)
[2023-10-04] MEDS: ATORVASTATIN 20 MG TABLET GT SCH (20:57)
[2023-10-05] VITALS (17 sets, daily range): BP systolic 114–158; PULSE 70–96; RESP 12–18; TEMP 97.7–98.9; O2SAT 96–100
[2023-10-05] MEDS: VALPROIC ACID ORAL SYRUP 250 MG/5 ML UDC GT SCH ×3 (06:09→23:28)
[2023-10-05] MEDS: INSULIN LISPRO SLIDING SCALE 100 UNITS/ML, 3 ML VIAL (humaLOG) SUBCUT PRN ×3 (06:13→23:58)
[2023-10-05] MEDS: LANSOPRAZOLE 30 MG CAPSULE.DR GT SCH (06:16)
[2023-10-05 06:44] LABS: BASOPHILS # (AUTO) 0.1 K/uL (0.0-0.2); BASOPHILS % (AUTO) 0.8 % (0.0-2.0); EOSINOPHILS # (AUTO) 0.2 K/uL (0.0-0.4); EOSINOPHILS % (AUTO) 2.4 % (0.0-4.0); HEMATOCRIT 24.5 % (36-48); HEMOGLOBIN 8.2 g/dL (12.0-16.0); LYMPHOCYTES # (AUTO) 1.4 K/uL (1.0-5.5); LYMPHOCYTES % (AUTO) 20.8 % (20.5-51.5); MEAN CORPUSCULAR HEMOGLOBIN 30 pg (27-31); MEAN CORPUSCULAR HGB CONC 34 % (32-36); MEAN CORPUSCULAR VOLUME 89 fL (79.0-98.0); MONOCYTES # (AUTO) 0.6 K/uL (0.0-1.0); NEUTROPHILS # (AUTO) 4.5 K/uL (1.8-7.7); PLATELET COUNT (AUTO) 436 K/uL (130-430); RED BLOOD CELL COUNT(AUTO) 2.76 MIL/uL (4.2-6.2); RED CELL DISTRIBUTION WIDTH 14.3 % (9.0-15.0); WHITE BLOOD COUNT (AUTO) 6.8 K/uL (4.8-10.8)
[2023-10-05 07:01] LABS: CALCIUM 8.4 mg/dL (8.4-11.0); CREATININE 0.49 mg/dL (0.55-1.30); POTASSIUM 3.4 mmol/L (3.5-5.1)
[2023-10-05] MEDS: ALBUTEROL SULFATE 0.083% 2.5 MG/3 ML VIAL.NEB INH SCH ×3 (07:22→19:56)
[2023-10-05] MEDS: AMPHETAMINE GT SCH (09:00)
[2023-10-05] MEDS: PHENYTOIN 100 MG/4 ML UDC (DILANTIN) GT SCH ×2 (09:05→20:56)
[2023-10-05] MEDS: FERROUS SULFATE 300 MG/5 ML UDC GT SCH ×2 (09:05→20:54)
[2023-10-05] MEDS: THORAZINE (chlorproMAZINE) 25 MG TAB GT SCH (09:06)
[2023-10-05] MEDS: POTASSIUM CHLORIDE 20 MEQ/PKT PACKET GT SCH ×2 (09:06→20:55)
[2023-10-05] MEDS: lisinopriL 20 MG TABLET GT SCH (09:06)
[2023-10-05] MEDS: ASCORBIC ACID 500 MG TABLET GT SCH (09:06)
[2023-10-05] MEDS: MULTIVITS,CA,MINERALS/IRON/FA 1 TABLET GT SCH (09:06)
[2023-10-05] MEDS: MAGNESIUM OXIDE 400 MG TABLET GT SCH ×2 (09:07→20:54)
[2023-10-05] MEDS: amLODIPine BESYLATE 10 MG TABLET GT SCH (09:07)
[2023-10-05] MEDS: LACOSAMIDE 100 MG TABLET GT SCH ×2 (09:08→23:06)
[2023-10-05] MEDS: CHOLECALCIFEROL (VITAMIN D3) 5,000 UNIT TABLET GT SCH (09:08)
[2023-10-05] MEDS: CARVEDILOL 12.5 MG TABLET (COREG) GT SCH ×2 (09:08→20:56)
[2023-10-05] MEDS: INSULIN GLARGINE 100 UNITS/ML, 10 ML VIAL SQ SCH ×2 (09:09→23:56)
[2023-10-05] MEDS: CHLORHEXIDINE GLUC 0.12% 15 ML MOUTHWASH UDC MM SCH ×2 (09:20→23:28)
[2023-10-05] MEDS: KCL 20 mEq in D5/0.45NS 1000mL 1,000 ML IV SCH (09:21)
[2023-10-05] MEDS: BALSAM PERU/CASTOR OIL 56.7 GM OINT...G. TP SCH (09:21)
[2023-10-05] MEDS: LevETIRAcetam 500 MG/5 ML UDC ORAL LIQUID GT SCH (11:39)
[2023-10-05] MEDS: ERTAPENEM SODIUM 1 GM in NS 50 ML IV SCH (11:40)
[2023-10-05] MEDS: ATORVASTATIN 20 MG TABLET GT SCH (20:55)
[2023-10-06] VITALS (16 sets, daily range): BP systolic 142–179; PULSE 72–89; RESP 12–16; TEMP 97.4–98.4; O2SAT 97–100
[2023-10-06] MEDS ORDERED: LevETIRAcetam 500 MG/5 ML UDC ORAL LIQUID ONE (00:19)
[2023-10-06] MEDS: LevETIRAcetam 500 MG/5 ML UDC ORAL LIQUID GT SCH ×2 (00:32→11:52)
[2023-10-06] MEDS: ALBUTEROL SULFATE 0.083% 2.5 MG/3 ML VIAL.NEB INH SCH ×4 (01:04→19:30)
[2023-10-06] MEDS: KCL 20 mEq in D5/0.45NS 1000mL 1,000 ML IV SCH (01:51)
[2023-10-06] MEDS: VALPROIC ACID ORAL SYRUP 250 MG/5 ML UDC GT SCH ×2 (06:11→13:59)
[2023-10-06] MEDS: LANSOPRAZOLE 30 MG CAPSULE.DR GT SCH (06:11)
[2023-10-06 06:19] LABS: BASOPHILS # (AUTO) 0.1 K/uL (0.0-0.2); BASOPHILS % (AUTO) 0.9 % (0.0-2.0); EOSINOPHILS # (AUTO) 0.1 K/uL (0.0-0.4); EOSINOPHILS % (AUTO) 1.9 % (0.0-4.0); HEMATOCRIT 27.8 % (36-48); LYMPHOCYTES # (AUTO) 1.4 K/uL (1.0-5.5); LYMPHOCYTES % (AUTO) 22.9 % (20.5-51.5); MEAN CORPUSCULAR HEMOGLOBIN 29 pg (27-31); MEAN CORPUSCULAR HGB CONC 32 % (32-36); MEAN CORPUSCULAR VOLUME 89 fL (79.0-98.0); MONOCYTES # (AUTO) 0.5 K/uL (0.0-1.0); MONOCYTES % (AUTO) 8.1 % (1.7-9.3); NEUTROPHILS # (AUTO) 4.1 K/uL (1.8-7.7); NEUTROPHILS % (AUTO) 66.2 % (40.0-70.0); PLATELET COUNT (AUTO) 541 K/uL (130-430); RED BLOOD CELL COUNT(AUTO) 3.13 MIL/uL (4.2-6.2); WHITE BLOOD COUNT (AUTO) 6.3 K/uL (4.8-10.8)
[2023-10-06] MEDS: INSULIN LISPRO SLIDING SCALE 100 UNITS/ML, 3 ML VIAL (humaLOG) SUBCUT PRN ×3 (06:23→17:08)
[2023-10-06] MEDS: CHOLECALCIFEROL (VITAMIN D3) 5,000 UNIT TABLET GT SCH (08:49)
[2023-10-06] MEDS: MULTIVITS,CA,MINERALS/IRON/FA 1 TABLET GT SCH (08:49)
[2023-10-06] MEDS: THORAZINE (chlorproMAZINE) 25 MG TAB GT SCH (08:50)
[2023-10-06] MEDS: lisinopriL 20 MG TABLET GT SCH (08:50)
[2023-10-06] MEDS: amLODIPine BESYLATE 10 MG TABLET GT SCH (08:50)
[2023-10-06] MEDS: ASCORBIC ACID 500 MG TABLET GT SCH (08:51)
[2023-10-06] MEDS: CARVEDILOL 12.5 MG TABLET (COREG) GT SCH ×2 (08:51→20:47)
[2023-10-06] MEDS: POTASSIUM CHLORIDE 20 MEQ/PKT PACKET GT SCH ×2 (08:52→20:50)
[2023-10-06] MEDS: MAGNESIUM OXIDE 400 MG TABLET GT SCH ×2 (08:52→20:50)
[2023-10-06] MEDS: CHLORHEXIDINE GLUC 0.12% 15 ML MOUTHWASH UDC MM SCH ×2 (08:52→20:53)
[2023-10-06] MEDS: PHENYTOIN 100 MG/4 ML UDC (DILANTIN) GT SCH ×2 (08:52→20:50)
[2023-10-06] MEDS: FERROUS SULFATE 300 MG/5 ML UDC GT SCH ×2 (08:52→20:48)
[2023-10-06] MEDS: AMPHETAMINE GT SCH (08:53)
[2023-10-06] MEDS: LACOSAMIDE 100 MG TABLET GT SCH ×2 (09:01→20:57)
[2023-10-06] MEDS: INSULIN GLARGINE 100 UNITS/ML, 10 ML VIAL SQ SCH (09:02)
[2023-10-06] MEDS: BALSAM PERU/CASTOR OIL 56.7 GM OINT...G. TP SCH (09:03)
[2023-10-06] MEDS: ERTAPENEM SODIUM 1 GM in NS 50 ML IV SCH (11:52)
[2023-10-06] MEDS: SCOPOLAMINE HYDROBROMIDE 1 MG PATCH .72 H (TRANSDERM-SCOP) TD SCH (13:59)
== END 2023-10-06 21:50 | DRG 720 ==
LOC: SED 04:52 → STU 11:23
PROVIDERS: ADMIT Family Medicine; ATTEND Family Medicine
PROC: 5A1955Z Respiratory Ventilation, Greater than 96 Consecutive Hours (ICD-10-PCS; principal; 2023-09-24)
PROC: 30233N1 Transfusion of Nonautologous Red Blood Cells into Peripheral Vein, Percutaneous Approach (ICD-10-PCS; 2023-09-27)
PROC: 0JB70ZZ Excision of Back Subcutaneous Tissue and Fascia, Open Approach (ICD-10-PCS; 2023-10-03)
DX: A41.9 Sepsis, unspecified organism (principal); J69.0 Pneumonitis due to inhalation of food and vomit; G93.49 Other encephalopathy; E43 Unspecified severe protein-calorie malnutrition; J96.10 Chronic respiratory failure, unspecified whether with hypoxia or hypercapnia; L89.159 Pressure ulcer of sacral region, unspecified stage; E11.9 Type 2 diabetes mellitus without complications; D64.9 Anemia, unspecified; Z99.11 Dependence on respirator [ventilator] status; G40.909 Epilepsy, unspecified, not intractable, without status epilepticus; Z20.822 Contact with and (suspected) exposure to COVID-19; I10 Essential (primary) hypertension; E78.5 Hyperlipidemia, unspecified; D72.829 Elevated white blood cell count, unspecified; N39.0 Urinary tract infection, site not specified; Z87.01 Personal history of pneumonia (recurrent); Z86.73 Personal history of transient ischemic attack (TIA), and cerebral infarction without residual deficits; Z79.4 Long term (current) use of insulin; Z79.82 Long term (current) use of aspirin; Z79.899 Other long term (current) drug therapy; Z74.01 Bed confinement status; Z79.1 Long term (current) use of non-steroidal anti-inflammatories (NSAID)
CPT/HCPCS: 36415; 71045; 80048; 80053; 80076; 81000; 81001; 81015; 82272; 82607; 82728; 82746; 82803; 82962; 83540; 83550; 83605; 83735; 84484; 85007; 85025; 85027; 85044; 85610-TC; 85730-TC; 86886; 86900; 86901; 86920; 87040; 87070-TC; 87075-TC; 87081; 87086; 87186-TC; 88304; 93005; 94003; 94640; 94760; 96365; 99291; G0378; J1335; J1450; J1815; J2543; J2704; J3010; J3370; J3480; J3490; J7030; P9021; Q0161

== ENCOUNTER 2024-03-09 22:03 | Inpatient (IN) | payer MEDICAID ==
[~2024-03-09] VITALS: Ht 154.9 cm; Wt 64.0 kg
[2024-03-09 22:03] VITALS: BP_SYST 122; PULSE 69; RESP 23; TEMP 97.5; O2SAT 99
[~2024-03-09 22:03] MED LIST changes: +ALBU2.5V7 INH; -AMPH20TA PEG; +CARV12.548 PO; +DEXT20CA3 GT; +EPOE4000 SQ; +FER300L GT; +HYDR-2923 PEG; -HYDR-4037 PEG; -LACO10SO12 PEG; +MAGN400T10 GT; +MICA50VI IV; +MULT9LIQ6 GT; -PHEN100O4 PEG; +SACC250C12 PEG; +SYN50 PEG; +ZOSPM2 IV; +[UNRECOGNIZED DRUG - CODE] PEG
[2024-03-09 23:18] LABS: MEAN CORPUSCULAR HEMOGLOBIN 30 pg (27-31); MEAN CORPUSCULAR HGB CONC 34 % (32-36); MEAN CORPUSCULAR VOLUME 88 fL (79.0-98.0); PLATELET COUNT (AUTO) 348 K/uL (130-430); RED BLOOD CELL COUNT(AUTO) 2.11 MIL/uL (4.2-6.2); RED CELL DISTRIBUTION WIDTH 21.3 % (9.0-15.0); WHITE BLOOD COUNT (AUTO) 11.1 K/uL (4.8-10.8)
[2024-03-09 23:26] LABS: HEMOGLOBIN 6.3 g/dL (12.0-16.0)
[2024-03-09 23:27] LABS: HEMATOCRIT 18.6 % (36-48)
[2024-03-09 23:29] LABS: CREATININE 0.69 mg/dL (0.55-1.30)
[2024-03-09 23:41] LABS: POTASSIUM 2.6 mmol/L (3.5-5.1)
[2024-03-09] MEDS ORDERED: KCL 40 mEq in 100 mL (PREMIX) 100 ML IV ONE (23:45)
[2024-03-10] VITALS (14 sets, daily range): BP systolic 145–168; PULSE 67–78; RESP 15–16; TEMP 97.1–98.2; O2SAT 95–100
[2024-03-10] MEDS ORDERED: INSULIN REGULAR, HUMAN 100 UNITS/ML, 3 ML VIAL (humuLIN R) SUBCUT PRN (00:15)
[2024-03-10 00:28] LABS: BAND % (MANUAL) 10 % (0-6); EOSINOPHILS % (MANUAL) 8 % (0-7); LYMPHOCYTES % (MANUAL) 15 % (20-46); METAMYELOCYTES % 2 % (0-0); MONOCYTES % (MANUAL) 15 % (0-11); PLATELET ESTIMATE ADEQUATE (ADEQUATE)
[2024-03-10] MEDS: POTASSIUM CHLORIDE 20 MEQ/PKT PACKET PO ONE (00:59)
[2024-03-10] MEDS: KCL 20 mEq in 0.45% NS 1000 mL 1,000 ML IV SCH ×2 (01:01→13:24)
[2024-03-10] MEDS ORDERED: ACID1CAP2 PO (01:44)
[2024-03-10] MEDS ORDERED: HYDROcodone/ACETAMIN 5-325 MG TAB (NORCO/ VICODIN) GT SCH (10:45)
[2024-03-10] MEDS ORDERED: NALOXONE HCL 2 MG/2 ML SYR IVP PRN (10:45)
[2024-03-10] MEDS ORDERED: ALBUTEROL SULFATE 0.083% 2.5 MG/3 ML VIAL.NEB INH PRN (10:45)
[2024-03-10] MEDS: ALBUTEROL SULFATE 0.083% 2.5 MG/3 ML VIAL.NEB INH SCH (12:24)
[2024-03-10] MEDS: POTASSIUM CHLORIDE 20 MEQ/PKT PACKET GT ONE (13:24)
[2024-03-10] MEDS: LevETIRAcetam 500 MG/5 ML UDC ORAL LIQUID GT SCH (13:24)
[2024-03-10] MEDS: VALPROIC ACID ORAL SYRUP 250 MG/5 ML UDC GT SCH (13:25)
[2024-03-10] MEDS: cefTRIAXone 1 GM in D5W 50 ML IV SCH (14:31)
[2024-03-10] MEDS ORDERED: cloNIDine HCL 0.1 MG TABLET GT PRN (16:15)
[2024-03-10] MEDS: INSULIN REGULAR, HUMAN 100 UNITS/ML, 3 ML VIAL (humuLIN R) SUBCUT PRN (17:43)
[2024-03-10 18:05] LABS: BASOPHILS # (AUTO) 0.2 K/uL (0.0-0.2); EOSINOPHILS # (AUTO) 1.4 K/uL (0.0-0.4); HEMATOCRIT 35.6 % (36-48); LYMPHOCYTES # (AUTO) 1.7 K/uL (1.0-5.5); LYMPHOCYTES % (AUTO) 10.9 % (20.5-51.5); MEAN CORPUSCULAR HEMOGLOBIN 31 pg (27-31); MEAN CORPUSCULAR HGB CONC 34 % (32-36); MONOCYTES # (AUTO) 0.9 K/uL (0.0-1.0); MONOCYTES % (AUTO) 5.7 % (1.7-9.3); NEUTROPHILS # (AUTO) 11.5 K/uL (1.8-7.7); NEUTROPHILS % (AUTO) 73.4 % (40.0-70.0); RED BLOOD CELL COUNT(AUTO) 3.91 MIL/uL (4.2-6.2); RED CELL DISTRIBUTION WIDTH 17.6 % (9.0-15.0); WHITE BLOOD COUNT (AUTO) 15.6 K/uL (4.8-10.8)
[2024-03-10 18:19] LABS: PROTHROMBIN TIME 10.8 SECS (9.5-12.5)
[2024-03-10 18:20] LABS: MEAN CORPUSCULAR VOLUME 91 fL (79.0-98.0); PLATELET COUNT (AUTO) 110 K/uL (130-430)
[2024-03-10 18:21] LABS: ALBUMIN 0.7 g/dL (3.4-4.8); CALCIUM 10.2 mg/dL (8.4-11.0); CREATININE 0.75 mg/dL (0.55-1.30); POTASSIUM 3.6 mmol/L (3.5-5.1); TOTAL BILIRUBIN 0.3 mg/dL (0.0-1.0); TOTAL PROTEIN, SERUM 6.3 g/dL (6.4-8.3)
[2024-03-10] MEDS: FERROUS SULFATE 300 MG/5 ML UDC GT SCH (22:51)
[2024-03-10] MEDS: LACTOBACILLUS RHAMNOSUS GG 1 CAP CAPSULE GT SCH (22:51)
[2024-03-10] MEDS: PANTOPRAZOLE SODIUM 40 MG/VIAL (PROTONIX) IVP SCH (22:51)
[2024-03-10] MEDS: PHENYTOIN 100 MG/4 ML UDC (DILANTIN) GT SCH (22:51)
[2024-03-10] MEDS: ATORVASTATIN 20 MG TABLET GT SCH (22:52)
[2024-03-10] MEDS: CHLORHEXIDINE GLUC 0.12% 15 ML MOUTHWASH UDC MM SCH (22:53)
[2024-03-10] MEDS: CARVEDILOL 12.5 MG TABLET (COREG) PO SCH (22:53)
[2024-03-10] MEDS: hydrALAZINE HCL 25 MG TABLET PO SCH (22:53)
[2024-03-10] MEDS: MAGNESIUM OXIDE 400 MG TABLET GT SCH (22:54)
[2024-03-10] MEDS: INSULIN GLARGINE 100 UNITS/ML, 10 ML VIAL SQ SCH (22:57)
[2024-03-11] VITALS (18 sets, daily range): BP systolic 111–150; PULSE 58–102; RESP 12–16; TEMP 96.7–98; O2SAT 96–100
[2024-03-11] MEDS: LEVOTHYROXINE SODIUM 0.025 MG TABLET GT SCH (06:45)
[2024-03-11 07:17] LABS: ALBUMIN 0.6 g/dL (3.4-4.8); CALCIUM 10.1 mg/dL (8.4-11.0); CREATININE 0.63 mg/dL (0.55-1.30); PHENYTOIN (DILANTIN) 4.4 ug/mL (10.0-20.0); POTASSIUM 3.7 mmol/L (3.5-5.1); TOTAL BILIRUBIN 0.2 mg/dL (0.0-1.0); TOTAL PROTEIN, SERUM 5.9 g/dL (6.4-8.3)
[2024-03-11] MEDS: AMPHET ASP GT SCH (09:00)
[2024-03-11] MEDS: D AMPHET GT SCH (09:00)
[2024-03-11] MEDS ORDERED: LANSOPRAZOLE 30 MG CAPSULE.DR GT SCH (09:00)
[2024-03-11] MEDS ORDERED: AMPHET GT SCH (09:00)
[2024-03-11] MEDS ORDERED: D AMPHET GT SCH (09:00)
[2024-03-11] MEDS ORDERED: SCOPOLAMINE HYDROBROMIDE 1 MG PATCH .72 H (TRANSDERM-SCOP) TD SCH (09:00)
[2024-03-11] MEDS ORDERED: AMPHET ASP GT SCH (09:00)
[2024-03-11] MEDS: AMPHET GT SCH (09:00)
[2024-03-11] MEDS ORDERED: ASPIRIN 81 MG TAB.CHEW GT SCH (09:00)
[2024-03-11] MEDS: ASCORBIC ACID 500 MG TABLET GT SCH (10:31)
[2024-03-11] MEDS: MULTIVITAMINS TAB 1 TABLET GT SCH (10:32)
[2024-03-11] MEDS: amLODIPine BESYLATE 10 MG TABLET GT SCH (10:32)
[2024-03-11] MEDS: CHOLECALCIFEROL (VITAMIN D3) 5,000 UNIT TABLET GT SCH (10:32)
[2024-03-12] VITALS (16 sets, daily range): BP systolic 97–151; PULSE 63–82; RESP 16–18; TEMP 97.6–98.7; O2SAT 96–99
[2024-03-12 11:30] LABS: BASOPHILS % (AUTO) 0.4 % (0.0-2.0); EOSINOPHILS # (AUTO) 0.5 K/uL (0.0-0.4); EOSINOPHILS % (AUTO) 6.8 % (0.0-4.0); HEMATOCRIT 36.5 % (36-48); HEMOGLOBIN 12.4 g/dL (12.0-16.0); LYMPHOCYTES # (AUTO) 1.8 K/uL (1.0-5.5); LYMPHOCYTES % (AUTO) 24.7 % (20.5-51.5); MEAN CORPUSCULAR HEMOGLOBIN 31 pg (27-31); MEAN CORPUSCULAR HGB CONC 34 % (32-36); MEAN CORPUSCULAR VOLUME 92 fL (79.0-98.0); MONOCYTES # (AUTO) 0.6 K/uL (0.0-1.0); MONOCYTES % (AUTO) 8.3 % (1.7-9.3); NEUTROPHILS # (AUTO) 4.4 K/uL (1.8-7.7); NEUTROPHILS % (AUTO) 59.8 % (40.0-70.0); PLATELET COUNT (AUTO) 182 K/uL (130-430); RED BLOOD CELL COUNT(AUTO) 3.97 MIL/uL (4.2-6.2); RED CELL DISTRIBUTION WIDTH 18.3 % (9.0-15.0)
[2024-03-12 11:32] LABS: WHITE BLOOD COUNT (AUTO) 7.4 K/uL (4.8-10.8)
[2024-03-12] MEDS: PANTOPRAZOLE SODIUM 40 MG/VIAL (PROTONIX) IVP ONE (12:14)
[2024-03-12] MEDS: EPOETIN ALFA 4,000 UNITS/ML VIAL SUBCUT SCH (17:00)
[2024-03-13] VITALS (17 sets, daily range): BP systolic 100–160; PULSE 57–81; RESP 15–18; TEMP 96.3–98.1; O2SAT 96–99
[2024-03-13 06:01] LABS: INR 1.1 (0.8-1.2)
[2024-03-13 06:02] LABS: BASOPHILS % (AUTO) 0.3 % (0.0-2.0); EOSINOPHILS # (AUTO) 0.7 K/uL (0.0-0.4); HEMATOCRIT 32.6 % (36-48); HEMOGLOBIN 11.1 g/dL (12.0-16.0); LYMPHOCYTES # (AUTO) 2.2 K/uL (1.0-5.5); LYMPHOCYTES % (AUTO) 22.9 % (20.5-51.5); MEAN CORPUSCULAR HEMOGLOBIN 32 pg (27-31); MEAN CORPUSCULAR HGB CONC 34 % (32-36); MEAN CORPUSCULAR VOLUME 93 fL (79.0-98.0); MONOCYTES # (AUTO) 0.7 K/uL (0.0-1.0); MONOCYTES % (AUTO) 7.6 % (1.7-9.3); NEUTROPHILS # (AUTO) 5.9 K/uL (1.8-7.7); NEUTROPHILS % (AUTO) 62.2 % (40.0-70.0); PLATELET COUNT (AUTO) 204 K/uL (130-430); RED BLOOD CELL COUNT(AUTO) 3.52 MIL/uL (4.2-6.2); RED CELL DISTRIBUTION WIDTH 18.2 % (9.0-15.0)
[2024-03-13 06:19] LABS: ALBUMIN 0.6 g/dL (3.4-4.8); CALCIUM 9.1 mg/dL (8.4-11.0); CREATININE 0.49 mg/dL (0.55-1.30); TOTAL BILIRUBIN 0.1 mg/dL (0.0-1.0); TOTAL PROTEIN, SERUM 5.7 g/dL (6.4-8.3)
[2024-03-13 06:54] LABS: BILIRUBIN,URINE NEGATIVE (NEGATIVE); CLARITY/URINE CLEAR (CLEAR); COLOR,URINE YELLOW (YELLOW); GLUCOSE,URINE NEGATIVE (NEGATIVE); KETONES,URINE NEGATIVE (NEGATIVE); LEUKOCYTE ESTERASE ,URINE TRACE (NEGATIVE); NITRITE, URINE POSITIVE (NEGATIVE); PH,URINE 8.5 (5.0-8.0); PROTEIN URINE 2+ (NEGATIVE); UROBILINOGEN,URINE 0.2 (0.2-1.0)
[2024-03-13 06:57] LABS: BLOOD, URINE TRACE (NEGATIVE)
[2024-03-13] MEDS ORDERED: D5W 1,000 ML IV PRN (07:00)
[2024-03-13] MEDS ORDERED: GLUCOSE (DEXTROSE) ORAL GEL -Adults PO PRN (07:00)
[2024-03-13] MEDS: DEXTROSE 50% JECT 50 ML DISP.SYRIN ONE (07:12)
[2024-03-13 07:23] LABS: BACTERIA,URINE MODERATE /HPF (None Seen); MUCUS,URINE 1+ /LPF (None Seen); YEAST,URINE Rare /HPF (None Seen)
[2024-03-13] MEDS: D5NS 1,000 ML IV SCH (08:41)
[2024-03-13] MEDS: PANTOPRAZOLE SODIUM 40 MG/VIAL (PROTONIX) IVP SCH (08:42)
[2024-03-13] MEDS: BALSAM PERU/CASTOR OIL 56.7 GM OINT...G. TP SCH (08:44)
[2024-03-13 08:51] LABS: WHITE BLOOD COUNT (AUTO) 9.5 K/uL (4.8-10.8)
[2024-03-13] MEDS ORDERED: ceFAZolin SODIUM 2 GM VIAL ONE (10:50)
[2024-03-13] MEDS: NACL 0.9% 1,000 ML IV SCH (13:15)
[2024-03-13] MEDS: hydrALAZINE HCL 25 MG TABLET PO SCH (14:00)
[2024-03-13] MEDS: DEXTROSE 50% JECT 50 ML DISP.SYRIN IVP PRN (16:28)
[2024-03-13] MEDS: ACETAMINOPHEN 650 MG/20.3 ML UDC GT PRN (21:42)
[2024-03-14] VITALS (18 sets, daily range): BP systolic 120–158; PULSE 62–76; RESP 16–20; TEMP 96.4–97.8; O2SAT 95–99
[2024-03-15] VITALS (17 sets, daily range): BP systolic 104–123; PULSE 53–68; RESP 12–18; TEMP 96.4–97.8; O2SAT 96–99
[2024-03-15 05:00] LABS: BASOPHILS % (AUTO) 0.4 % (0.0-2.0); EOSINOPHILS # (AUTO) 0.8 K/uL (0.0-0.4); EOSINOPHILS % (AUTO) 7.4 % (0.0-4.0); HEMATOCRIT 32.6 % (36-48); LYMPHOCYTES # (AUTO) 1.8 K/uL (1.0-5.5); LYMPHOCYTES % (AUTO) 17.6 % (20.5-51.5); MEAN CORPUSCULAR HEMOGLOBIN 32 pg (27-31); MEAN CORPUSCULAR HGB CONC 34 % (32-36); MEAN CORPUSCULAR VOLUME 94 fL (79.0-98.0); MONOCYTES # (AUTO) 0.5 K/uL (0.0-1.0); MONOCYTES % (AUTO) 4.4 % (1.7-9.3); NEUTROPHILS # (AUTO) 7.3 K/uL (1.8-7.7); NEUTROPHILS % (AUTO) 70.2 % (40.0-70.0); PLATELET COUNT (AUTO) 133 K/uL (130-430); RED BLOOD CELL COUNT(AUTO) 3.47 MIL/uL (4.2-6.2); RED CELL DISTRIBUTION WIDTH 18.9 % (9.0-15.0); WHITE BLOOD COUNT (AUTO) 10.4 K/uL (4.8-10.8)
[2024-03-15 05:06] LABS: CALCIUM 8.9 mg/dL (8.4-11.0); CREATININE 0.5 mg/dL (0.55-1.30); POTASSIUM 3.1 mmol/L (3.5-5.1)
[2024-03-15] MEDS: POTASSIUM CHLORIDE 40 MEQ in NS 250 ML IV ONE (16:41)
[2024-03-16] MEDS ORDERED: amLODIPine BESYLATE 5 MG TABLET GT SCH (09:00)
== END 2024-03-15 21:00 | DRG 364 ==
LOC: SED 22:03 → STU 03-10 00:12
PROVIDERS: ADMIT Family Medicine; ATTEND Family Medicine
PROC: 30233N1 Transfusion of Nonautologous Red Blood Cells into Peripheral Vein, Percutaneous Approach (ICD-10-PCS; 2024-03-10)
PROC: 02HV33Z Insertion of Infusion Device into Superior Vena Cava, Percutaneous Approach (ICD-10-PCS; 2024-03-10)
PROC: B548ZZA Ultrasonography of Superior Vena Cava, Guidance (ICD-10-PCS; 2024-03-10)
PROC: 0HB6XZZ Excision of Back Skin, External Approach (ICD-10-PCS; 2024-03-10)
PROC: 0QB20ZZ Excision of Right Pelvic Bone, Open Approach (ICD-10-PCS; 2024-03-13)
PROC: 5A1955Z Respiratory Ventilation, Greater than 96 Consecutive Hours (ICD-10-PCS; 2024-03-13)
PROC: 0LBK0ZZ Excision of Left Hip Tendon, Open Approach (ICD-10-PCS; 2024-03-13)
PROC: 0KBP0ZZ Excision of Left Hip Muscle, Open Approach (ICD-10-PCS; principal; 2024-03-13 11:03)
DX: L89.314 Pressure ulcer of right buttock, stage 4 (principal); N17.0 Acute kidney failure with tubular necrosis; G93.40 Encephalopathy, unspecified; J18.9 Pneumonia, unspecified organism; L89.150 Pressure ulcer of sacral region, unstageable; L89.320 Pressure ulcer of left buttock, unstageable; E43 Unspecified severe protein-calorie malnutrition; E11.22 Type 2 diabetes mellitus with diabetic chronic kidney disease; D64.9 Anemia, unspecified; J96.10 Chronic respiratory failure, unspecified whether with hypoxia or hypercapnia; G40.802 Other epilepsy, not intractable, without status epilepticus; N18.9 Chronic kidney disease, unspecified; G40.909 Epilepsy, unspecified, not intractable, without status epilepticus; E86.0 Dehydration; I12.9 Hypertensive chronic kidney disease with stage 1 through stage 4 chronic kidney disease, or unspecified chronic kidney disease; Z86.73 Personal history of transient ischemic attack (TIA), and cerebral infarction without residual deficits; Z79.899 Other long term (current) drug therapy; Z68.26 Body mass index [BMI] 26.0-26.9, adult; Z93.0 Tracheostomy status; Z99.11 Dependence on respirator [ventilator] status
CPT/HCPCS: 36415; 71045; 72131; 80048; 80053; 80185; 81000; 81001; 81015; 82948; 83735; 85007; 85025; 85027; 85610; 85730; 86886; 86900; 86901; 86920; 87070; 87075; 87081; 87186; 87205; 88304; 88305; 94002; 94003; 94070; 94640; 94664; 94760; 99285; C9113; G0378; J0696; J0885; J1815; J3010; J3480; J3490; J7050; J7060; P9021